=== PATIENT | male | born 1935 | race Caucasian/White ===

== ENCOUNTER 2019-11-09 09:17 | Outpatient (CLI) | payer MEDICARE, SELFPAY ==
--- NOTE | 2019-11-09 10:15 | USCV_ITS ---
Jerzy Quezada Age: 84 Gender: M : 1935 Exam Date: 11/09/2019 09:48 Ordering Phys: Mickey Xavier MD ([email or web address]) Technologist: Nandini Oneal Exam Location: [facility] [place] Indication: CP, SOB BP: 120 / 64 HR: 148 Rhythm: Sinus Technical Quality: Adequate MEASUREMENTS (Male / Female) Normal Values 2D ECHO LV Diastolic Diameter PLAX 5.6 cm 4.2 - 5.9 / 3.9 - 5.3 cm LV Systolic Diameter PLAX 5.0 cm LV Chamber Size 3.8 cm IVS Diastolic Thickness 0.6 cm 0.6 - 1.0 / 0.6 - 0.9 cm IVS Systolic Thickness 1.1 cm LVPW Diastolic Thickness 2.0 cm 0.6 - 1.0 / 0.6 - 0.9 cm LVPW Systolic Thickness 2.0 cm RV Chamber Size 3.4 cm LVOT Diameter 2.0 cm LV Ejection Fraction 2D Teich 20.7 % LV Ejection Fraction MOD 2C 40.7 % LV Ejection Fraction 2C AL 38.1 % LA Diameter 5.4 cm LA Width 3.7 cm LA Height 5.3 cm RA Width 3.0 cm RA Height 4.2 cm Aorta at Sinotubular Diameter 2.7 cm M-MODE LV Diastolic Diameter MM 6.5 cm 4.2 - 5.9 / 3.9 - 5.3 cm LV Systolic Diameter MM 4.9 cm LV Ejection Fraction MM Teich 47.1 % IVS Diastolic Thickness MM 0.4 cm 0.6 - 1.0 / 0.6 - 0.9 cm IVS Systolic Thickness MM 1.0 cm LVPW Diastolic Thickness MM 1.0 cm 0.6 - 1.0 / 0.6 - 0.9 cm LVPW Systolic Thickness MM 1.3 cm Aortic Annulus Diameter 3.0 cm LA Ao Ratio MM 1.8 MV E Point Septal Separation 1.6 cm DOPPLER AV Peak Velocity 145.0 cm/s LVOT Peak Velocity 90.0 cm/s AV Area Cont Eq vti 1.8 cm squared AV Area Cont Eq pk 2.0 cm squared MV Area PHT 4.6 cm squared Mitral E to A Ratio 2.0 MV E' Velocity 10.0 cm/s Mitral E to MV E' Ratio 12.9 Mitral E to LV E' Lateral Ratio 11.3 Mitral E to LV E' Septal Ratio 15.1 TR Peak Velocity 240.0 cm/s TR Peak Gradient 23.1 mmHg TR Mean Velocity 238.7 cm/s TR Mean Gradient 25.4 mmHg TR Velocity Time Integral 105.4 cm TV Peak E Velocity 87.0 cm/s Right Atrial Pressure 3.0 mmHg Pulmonary Artery Systolic Pressu 26.0 mmHg PV Peak Velocity 89.0 cm/s RV Acceleration Time 0.1 s RV Ejection Time 0.3 s RV AcT/ET 0.4 FINDINGS Left Ventricle Moderately increased left ventricular cavity size. Moderately decreased left ventricular systolic function. Left ventricular ejection fraction is estimated at 39 %. Grade II/IV diastolic dysfunction, moderately elevated filling pressures. Right Ventricle The right ventricle is normal in size and function. Right Atrium The right atrium is normal in size. Left Atrium Moderately increased left atrial size. Mitral Valve Moderately thickened mitral valve. No mitral valve stenosis. Severe mitral valve regurgitation. Aortic Valve Moderate aortic valve calcification. Mild aortic valve stenosis, mean gradient 4.4 mmHg, DC 1.8 cm squared.mild aortic valve regurgitation. Tricuspid Valve Trace tricuspid valve regurgitation. Pulmonic Valve Structurally normal pulmonic valve without significant stenosis. There is no pulmonic regurgitation. Pericardium Normal pericardium without effusion. Aorta Normal ascending aorta dimension. CONCLUSIONS 1-Moderately increased left ventricular cavity size. Moderately decreased left ventricular systolic function. Left ventricular ejection fraction is estimated at 39 %. Grade II/IV diastolic dysfunction, moderately elevated filling pressures. 2-Moderately increased left atrial size. 3-Moderately thickened mitral valve. No mitral valve stenosis. Severe mitral valve regurgitation. 4-Moderate aortic valve calcification. Mild aortic valve stenosis, mean gradient 4.4 mmHg, DC 1.8 cm squared.mild aortic valve regurgitation. 5-There is no pericardial effusion. 6-Right atrial pressure is around 5 mm of mercury. 7-There are no prior echocardiogram studies to compare. Mickey Xavier MD (Electronically Signed) Final Date: 10 Nov 2019 17:26 S
== END 2019-11-09 09:18 | disposition home or self-care (01) ==
LOC: RAD 09:22
PROVIDERS: Family Provider Family Medicine; PCP Nurse Practitioner Family; Visit Provider Internal Medicine Cardiovascular Disease
DX: R06.02 Shortness of breath (principal); R07.9 Chest pain, unspecified; I05.9 Rheumatic mitral valve disease, unspecified; I35.0 Nonrheumatic aortic (valve) stenosis
CPT/HCPCS: 93306

== ENCOUNTER 2020-01-04 08:28 | Outpatient (CLI) | payer MEDICARE, SELFPAY ==
[2020-01-04 09:31] VITALS: BMI 21.8
--- NOTE | 2020-01-04 09:32 | NMCV_ITS ---
NM deysi perf SPECT r/s* [id number] Jerzy Quezada Age: 84 Gender: M : 1935 Exam Date: 01/04/2020 09:57 Ordering Phys: Mickey Xavier MD ([email or web address]) Technologist: CHARLOTTE Williamson Exam Location: [facility] Indications: CHEST PAIN STRESS TEST Please [facility] for [facility] IMAGE PROTOCOL Rest/Stress 1 Lexiscan Day Radiopharmaceutical Dose (mCi) Administration Site Administered by Rest: Tc-99m 11.0 IV CHARLOTTE Kuo Sestamibi Stress:Tc-99m 32.4 IV CHARLOTTE Williamson Sestamibi Rest: 04-Jan-2020 60 Discovery 630 Stress: 04-Jan-2020 30 Discovery 630 0.4mg Lexiscan. Images obtained in supine and prone position. SPECT RESULTS Technical Quality: Excellent Raw Data Analysis: Normal Image Corrections: Patient motion artifact - motion correction applied Summed Stress Score: 26 Summed Rest Score: 22 Summed Difference Score: 5 PERFUSION FINDINGS Large area of fixed perfusion defect noted in basal to distal anterior, anteroseptal and apical wall suggestive of old myocardial infarction versus scarring in LAD territory. Medium-sized area of fixed perfusion defect noted in basal to mid inferior and infero lateral wall suggestive of old myocardial infarction versus scarring. This study is negative for ischemia. FUNCTIONAL RESULTS (calculated via Gated SPECT) Stress Image LV EF (%): 38 Stress EDV (mL):187 TID: 0.93 Stress ESV (mL):116 Rest Image LV EF (%): 38 FUNCTIONAL FINDINGS: Mid to distal anterior anteroseptal apical akinesis. Mid to distal inferior wall akinesis IMPRESSIONS Large area of fixed perfusion defect noted in basal to distal anterior, anteroseptal and apical wall suggestive of old myocardial infarction versus scarring in LAD territory. Medium-sized area of fixed perfusion defect noted in basal to mid inferior and inferolateral wall suggestive of old myocardial infarction versus scarring. This study is negative for ischemia. Mickey Xavier MD (Electronically Signed) Final Date: 04 January 2020 15:44 S
--- NOTE | 2020-01-04 09:32 | ECG_ITS ---
[facility] Test Date: 2020-01-04 Pat Name: Jerzy Quezada Department: Room: Gender: Male Optic Fib[employer] Drawer: Meryl Mariano : 1935 Requested By: Mickey Xavier Order Number: [id number] Renata MD: Mickey Xavier M.D. Interpretive Statements NAME OF STUDY: LEXISCAN SESTAMIBI STRESS TEST INDICATION: Chest Pain, NOTE: Please note that this is the electrocardiogram portion of the Lexiscan/Sestamibi stress test. The perfusion scan will be documented separately. DATA: Baseline heart rate was 62 beats per minute. Baseline blood pressure was 146/70 millimeters of mercury. Target heart rate was 130. Maximum heart rate achieved was 92. which was 66 % of the predicted target heart rate. Maximum blood pressure was 150/81 millimeters of mercury. The reason for ending the test was completion of the protocol. The patient did not experience any symptoms. ELECTROCARDIOGRAM: BASELINE: Sinus bradycardia. Normal axis. Otherwise, no ST-T changes suggestive of ischemia noted. No arrhythmia noted. EXERCISE: After Lexiscan injection, no ST-T changes suggestive of ischemic noted. No arrhythmia noted. CONCLUSION: Please note due to baseline abnormality of the EKG specificity and sensitivity of the EKG portion of LexiScan MIBI stress test will be low 1. EKG not suggestive of ischemia 2. Lexiscan injection unremarkable. 3. Perfusion scan will be documented separately. Electronically Signed On 01-05-2020 17:23:34 CDT by Mickey Xavier M.D. [id number]
[2020-01-04] MEDS: regadenoson 0.4 Mg/5 ml Syringe IVP (10:59)
[2020-01-04 11:09] VITALS: BP 149/79; PULSE 71
== END 2020-01-04 08:29 | disposition home or self-care (01) ==
PROVIDERS: PCP Nurse Practitioner Family; Visit Provider Internal Medicine Cardiovascular Disease
DX: R06.02 Shortness of breath (principal); I25.10 Atherosclerotic heart disease of native coronary artery without angina pectoris; R07.9 Chest pain, unspecified
CPT/HCPCS: 78452; 93017; A9500; J2785

== ENCOUNTER 2021-02-18 07:09 | Outpatient (CLI) | payer MEDICARE, SELFPAY ==
--- NOTE | 2021-02-18 07:16 | ECG_ITS ---
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 Interpretive Statements NAME OF STUDY: EXERCISE SESTAMIBI STRESS TEST INDICATION: [Angina, ] EXERCISE DATA: The patient was exercised by Mickey protocol. Baseline heart rate was 91 beats per minute. Baseline blood pressure was 106/92 millimeters of mercury. Target heart rate was 145 beats per minute. Maximum heart rate achieved was 171, which was 117% of the target heart rate. Maximum blood pressure was 106/65 millimeters of mercury. Total exercise time was 3 minutes. Maximum METs achieved was 4.6, maximum VO2 was 16. The reason for ending the test was target heart rate achieved. The patient complained of shortness of breath during the stress test, which then resolved at the end of the test. ELECTROCARDIOGRAM: BASELINE: Showed sinus rhythm, normal axis, no significant ST-T changes at the baseline noted and left bundle branch block. Frequent PVCs [] EXERCISE: At the peak exercise level, [] No significant ST-T changes suggestive of ischemia noted. [] RECOVERY: During the recovery period, heart rate dropped appropriately. No significant ST-T changes in the recovery suggestive of ischemia noted. [] CONCLUSION: 1. Exercise capacity poor. 2. Heart rate response was appropriate. 3. Blood pressure response was appropriate. 4. Symptoms not suggestive of ischemia. 5. Electrocardiogram portion of the stress test was not suggestive of ischemia. 6. Nuclear scan will be documented separately. Electronically Signed On 03-17-2021 13:04:34 CDT by Deven Sam M.D. [id number]
--- NOTE | 2021-02-18 07:17 | NMCV_ITS ---
NM deysi perf SPECT r/s* [id number] Jerzy Quezada Age: 85 Gender: M : 1935 Exam Date: 02/18/2021 08:32 Ordering Phys: Sharon Foley Technologist: CHARLOTTE Williamson Exam Location: [facility] Indications: MYOCARDIAL PERFUSION STRESS TEST Please see separate stress test report in [facility] for full findings IMAGE PROTOCOL Rest/Stress 1 Exercise Day Radiopharmaceutical Dose (mCi) Administration Site Administered by Rest: Tc-99m 10.7 IV CHARLOTTE Williamson Sestamibi Stress:Tc-99m 32.3 IV Harriet Arroyo THRESHING DEPARTMENT SUPERVISOR Sestamibi Rest: 18-Feb-2021 60 Discovery 630 Stress: 18-Feb-2021 15 Discovery 630 Radiopharmaceutical was injected at 101% maximum heart rate. Images obtained in supine and prone position. SPECT RESULTS Technical Quality: Excellent Raw Data Analysis: Normal Image Corrections: No attenuation or motion correction applied Summed Stress Score: 25 Summed Rest Score: 32 Summed Difference Score: 0 PERFUSION FINDINGS There is a large sized, fixed perfusion defect in the apical, anterior and inferior [place]orges. This represents prior infarct. No evidence of ischemia is noted FUNCTIONAL RESULTS (calculated via Gated SPECT) Stress Image LV EF (%): 31 Stress EDV (mL):243 TID: 0.99 Stress ESV (mL):168 FUNCTIONAL FINDINGS: LV systolic function is severely reduced with EF of 31% IMPRESSIONS 1. Abnormal myocardial perfusion imaging with large sized prior infarct noted in the apical, anterior and inferior georges. No evidence of ischemia is seen 2. LV systolic function is severely reduced Deven Sam MD (Electronically Signed) Final Date: 18 February 2021 12:12 S
[2021-02-18 07:36] VITALS: BMI 21.5
[2021-02-18 09:22] VITALS: BP 106/65; PULSE 96
== END 2021-02-18 07:10 | disposition home or self-care (01) ==
LOC: CDL 07:13
PROVIDERS: PCP Nurse Practitioner Family; Visit Provider Nurse Practitioner Family
DX: I20.9 Angina pectoris, unspecified (principal)
CPT/HCPCS: 78452; 93017; A9500

== ENCOUNTER 2021-03-20 09:22 | Outpatient (CLI) | payer MEDICARE, SELFPAY ==
--- NOTE | 2021-03-20 09:30 | US_ITS ---
WS: [id number] THYROID ULTRASOUND HISTORY: HYPOTHYROID COMPARISON: None available. Right lobe: 1.5 cm x 1.5 cm x 4.0 cm (w x ap x l). Volume: 4.6 cm3. Normal size and echotexture. No significant are dominant nodules are present. Left lobe: 1.0 cm x 1.5 cm x 4.0 cm (w x ap x l). Volume: 3.0 cm3. Normal size and echotexture. No significant or dominant nodules are present. Single 5 mm hypoechoic n odule upper pole LEFT thyroid is well defined. No additional workup necessary. Isthmus: 0.3 cm. US/US thyroid [id number] IMPRESSION: No suspicious or dominant thyroid nodules. Normal size gland.
== END 2021-03-20 09:23 | disposition home or self-care (01) ==
LOC: US 09:23
PROVIDERS: PCP Nurse Practitioner Family; Visit Provider Nurse Practitioner Family
DX: E03.9 Hypothyroidism, unspecified (principal)
CPT/HCPCS: 76536

== ENCOUNTER 2021-05-26 08:05 | Emergency (ER) | payer MEDICARE, SELFPAY ==
[2021-05-26 08:17] VITALS: BP 133/93; PULSE 102; RESP 23; TEMP 36.7; O2SAT 95; BMI 22.1
--- NOTE | 2021-05-26 08:17 | W.ED.SOB ---
HPI - SOB/Dyspnea General: Chief Complaint: Shortness of Breath/Dyspnea Stated Complaint: SOB Time Seen by Provider: 05/26/21 08:16 History of Present Illness: HPI Narrative: Mr. Quezada is a 86-year-old gentleman with significant past medical history of CAD status post PCI with combined heart failure presents emergency department due to shortness of breath and chest pressure. He reports a longstanding history of shortness of breath and decreased exercise tolerance which she noted more so over the past year and a half. Without known specific provoking factor or event his symptoms have worsened over the past day or so. He most noted this lower leg down to bed at night, he felt short of breath and got up to sleep in a chair though still felt short of breath. No associated infectious symptoms. He does have mild intensity aching pressure in the middle of his chest which is not uncommon for him. No other specific changes to health reported. No other specific exacerbating or alleviating factors identified Review of Systems General: Reports: 10 or more systems reviewed and unremarkable except in HPI and below PFSH ED PFSH: Medical History CAD (coronary artery disease) Essential hypertension History of GA (myocardial infarction) Hyperlipidemia Family History Brother Heart failure Brother Heart failure Sister Heart failure Mother Hypertension Heart failure Diabetes Daughter Diabetes Other Cancer Physical Exam Narrative: EXAM NARRATIVE: GENERAL/CONSTITUTIONAL -chronically ill-appearing. No acute distress. Eyes - PERRL, no conjunctival injection ENMT - Atraumatic external nose and ears. NECK - supple. trachea midline CARDIOVASCULAR - regular rate and rhythm. No significant peripheral edema. RESPIRATORY -diminished to auscultation bilaterally. ABDOMEN/GI - Nontender/Nondistended. MSK - Extremities without obvious deformity or tenderness to palpation SKIN - Warm, Dry NEURO - alert and appropriately oriented. Moves all extremities equally. Course ED course: - Patient was seen and evaluated by me at bedside - Patient placed on cardiac monitors, IV access obtained - Initial evaluation notable for no acute distress, nontoxic appearance. Mild tachypnea noted without significant respiratory distress - Labs notable for no leukocytosis. No significant metabolic abnormality to explain the patient's symptoms. BNP is elevated. - Imaging notable for mild cardiomegaly, pleural thickening which may represent trace effusion - Upon serial reexamination after treatment the patient was improved - Based on patient history, evaluation, labs, and imaging as interpreted the most likely cause of the patient's condition is mild heart failure exacerbation. - The results of ED evaluation were discussed with the patient including possible management options including admission versus outpatient follow-up. Patient comfortable with outpatient follow-up. Prescriptions and/or symptomatic cares (if applicable) including appropriate and responsible use, followup plan, and return precautions. The patient verbalized understanding and felt safe for discharge. - Patient discharged in satisfactory condition. Vital Signs: Vital signs: Vital Signs Temperature 98.1 F 05/26/21 09:07 Pulse Rate 82 05/26/21 09:07 Respiratory Rate 27 H 05/26/21 09:07 Blood Pressure 117/71 05/26/21 09:07 Pulse Oximetry 93 05/26/21 09:07 MDM - SOB/Dyspnea Medical Records: Attestation: I reviewed the patient's medical records. Lab Data: Attestation: I reviewed the patient's lab results. Labs: Lab Results 05/26/21 05/26/21 05/26/21 08:26 08:26 08:26 WBC 6.9 10^3/uL 10^3/ uL (4.0-10.0) RBC 4.21 10^6/uL 10^6 /uL (4.1-5.3) Hgb 13.3 g/dL g/dL (11.7-16.6) Hct 41.4 % L % (42.0-52.0) MCV 98.3 fl H fl (80-94) MCH 31.6 pg pg (28.0-34.0) MCHC 32.1 g/dL g/dL (30.0-36.0) RDW 13.6 % % (12.1-15.1) Plt Count 194 10^3/cmm 10^3 /cmm (130-400) MPV 10.4 fL fL (7.4-10.4) Neut % (Auto) 71.8 % % Lymph % (Auto) 16.2 % % [place] % (Auto) 9.3 % % Eos % (Auto) 2.0 % % Baso % (Auto) 0.7 % % Neut # (Auto) 4.91 10^3/uL 10^3 /uL (1.8-7.7) Lymph # (Auto) 1.1 10^3/uL 10^3/ uL (0.8-4.8) [place] # (Auto) 0.6 10^3/uL 10^3/ uL (0.2-0.9) Eos # (Auto) 0.1 10^3/uL 10^3/ uL (0.0-0.8) Baso # (Auto) 0.1 10^3/uL 10^3/ uL (0.0-0.1) Nucleated RBC % (a uto) 0 % % Nucleated RBCs # 0.0 /100WBC /100W BC Sodium 137 mmol/L mmol/L (136-145) Potassium 4.4 mmol/L mmol/L (3.5-5.1) Chloride 101 mmol/L mmol/L (98-107) Carbon Dioxide 23 mmol/L mmol/L (22-29) Anion Gap 17.4 (5-19) BUN 14 mg/dL mg/dL (8-23) Creatinine 0.8 mg/dL mg/dL (0.7-1.2) GFR Calculation Not Reportable Glucose 99 mg/dL mg/dL (65-115) Calculated Osmolal ity 285 mOsm/kg mOsm/ kg (285-295) Calcium 9.6 mg/dL mg/dL (8.5-10.5) Total Bilirubin 0.9 mg/dL mg/dL (0.15-1.2) AST 20 U/L U/L (0-40) ALT 16 U/L U/L (0-41) Alkaline Phosphata se 72 IU/L IU/L (40-130) Troponin T Baselin e 14 ng/L ng/L (0-15) Troponin T 120 Min [place] Troponin T NT-Pro-B Natriuret Pep 2115 pg/mL H pg/m L (0-450) Total Protein 7.1 g/dL g/dL (6.6-8.7) Albumin 4.9 g/dL g/dL (3.5-5.2) Globulin 2.2 g/dL g/dL (1.3-4.6) TSH 3.23 uIU/mL uIU/m L (0.27-4.20) 05/26/21 11:01 WBC RBC Hgb Hct MCV MCH MCHC RDW Plt Count MPV Neut % (Auto) Lymph % (Auto) [place] % (Auto) Eos % (Auto) Baso % (Auto) Neut # (Auto) Lymph # (Auto) [place] # (Auto) Eos # (Auto) Baso # (Auto) Nucleated RBC % (a uto) Nucleated RBCs # Sodium Potassium Chloride Carbon Dioxide Anion Gap BUN Creatinine GFR Calculation Glucose Calculated Osmolal ity Calcium Total Bilirubin AST ALT Alkaline Phosphata se Troponin T Baselin e Troponin T 120 Min [place] 12.86 ng/L ng/L (0-15) [place] Troponin T -1.14 ABS# L ABS# (0-10) NT-Pro-B Natriuret Pep Total Protein Albumin Globulin TSH EKG Data^: EKG 1: Attestation: I personally reviewed and interpreted this EKG as follows: EKG Interpretation Date: 05/26/21 EKG interpretation time: 08:30 Interpretation: Twelve-lead EKG shows a regular rhythm at a rate of 92. NH interval 148, QRS duration 153, QTc 437. Normal axis. Interpretation: Sinus rhythm. Left bundle branch block. EKG 2: Attestation: I personally reviewed and interpreted this EKG as follows: EKG Interpretation Date: 05/26/21 EKG interpretation time: 11:20 Interpretation: Twelve-lead EKG shows a regular rhythm at a rate of 81. NH interval 155, QRS duration 157, QTc 447. Normal axis. Interpretation: Sinus rhythm. Left bundle branch block. Discharge Plan Discharge Patient Disposition: Home Clinical Impression: Shortness of breath, Chest pain Condition: Stable Prescriptions: No Action levothyroxine 50 mcg capsule 50 mcg PO DAILY RF: 0 nitroglycerin [Nitrostat] 0.4 mg tablet, sublingual 0.4 mg sublingual Q5M PRN (Reason: chest pain) Qty: 25 RF: 3 aspirin [Adult Aspirin Regimen] 81 mg tablet,delayed release (DR/EC) 81 mg PO DAILY Qty: 90 RF: 3 Lasix 20 mg tablet 20 mg PO DAILY Qty: 90 RF: 3 isosorbide mononitrate 30 mg tablet extended release 24 hr 15 mg PO BID Qty: 90 RF: 3 metoprolol succinate 25 mg tablet extended release 24 hr 12.5 mg PO DAILY Qty: 45 RF: 3 rosuvastatin 10 mg tablet 10 mg PO DAILY Qty: 90 RF: 3 Discharge Orders: Discharge ED (Routine); Ordered 05/26/21 Ordered By: Tony Trinh Referrals: Roxy Kaye APN [Primary Care Provider] - Discharge Diet: Usual diet Discharge Activity: Resume usual activity Patient Instructions: Heart Failure (ED), Shortness of Breath (ED) Activity Restrictions/Additional Instructions: Thank you for visiting the emergency department. You were seen and evaluated for shortness of breath. The exact cause of your symptoms is unclear however may be related to volume overload. You will be started on a medication called furosemide. Given your symptoms and this new medication you require follow-up with cardiology this week. I have messaged our casework specialist who should aid in scheduling this, she will see this message Thursday morning. Please return to the emergency department for worsening symptoms, chest pain, or anything else that you are concerned about and feel needs emergency department evaluation. Coding Level of Care Code ED Leaf Sucker Operator for Isaias Nance
--- NOTE | 2021-05-26 08:43 | ECG_ITS ---
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 Measurements Intervals [place] Rate: 81 P: 59 ME: 155 QRS: 73 QRSD: 157 T: 42 QT: 410 QTc: 478 Interpretive Statements SINUS RHYTHM LEFT BUNDLE BRANCH BLOCK [120+ ms QRS DURATION, 80+ ms Q/S IN V1/V2, 85+ ms R IN I/aVL/V5/V6] No previous ECG available for comparison Electronically Signed On 05-26-2021 15:53:40 SPEEDER OPERATOR by Brien Allen M.D. [id number]
--- NOTE | 2021-05-26 08:43 | XRR_ITS ---
PROCEDURE INFORMATION: Exam: XR Chest Exam date and time: 05/26/2021 8:43 AM Age: 86 years old Clinical indication: Shortness of breath; Prior surgery; Surgery date: 6+ months; Surgery type: Stents placed in heart; Additional info: SOB, problems breathing since 1 year ago TECHNIQUE: Imaging protocol: XR of the chest. Views: 1 view. COMPARISON: No relevant prior studies available. FINDINGS: Lungs: Mildly hyperinflated lungs. No consolidation. Pleural spaces: Appearance of pleural thickening at the lung bases, potentially trace loculated fluid/effusion. No pneumothorax. Heart/Mediastinum: Mild cardiomegaly. 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 XR/XR chest 1V portable [id number] IMPRESSION: 1. Mild cardiomegaly. 2. Appearance of pleural thickening at the lung bases which may represent trace loculated fluid/effusion. Radiation Dose CTDIVOL = (mGy): DLP = (mGy-cm)
[2021-05-26 09:07] VITALS: BP 117/71; PULSE 82; RESP 27; TEMP 36.7; O2SAT 93
[2021-05-26 09:33] LABS: Basophils # 0.1 10^3/uL (0.0-0.1); Basophils % 0.7 %; Eosinophils # 0.1 10^3/uL (0.0-0.8); Hematocrit 41.4 % (42.0-52.0); Hemoglobin 13.3 g/dL (11.7-16.6); Lymphocytes # 1.1 10^3/uL (0.8-4.8); Lymphocytes % 16.2 %; Mean Corpuscular HGB Conc 32.1 g/dL (30.0-36.0); Mean Corpuscular Hemoglobin 31.6 pg (28.0-34.0); Mean Corpuscular Volume 98.3 fl (80-94); Mean Platelet Volume 10.4 fL (7.4-10.4); Monocytes # 0.6 10^3/uL (0.2-0.9); Monocytes % 9.3 %; Neutrophils # 4.91 10^3/uL (1.8-7.7); Neutrophils % 71.8 %; Nucleated Red Blood Cells % 0 %; Platelet Count 194 10^3/cmm (130-400); Red Blood Count 4.21 10^6/uL (4.1-5.3); Red Cell Distribution Width 13.6 % (12.1-15.1); White Blood Count 6.9 10^3/uL (4.0-10.0)
[2021-05-26 09:41] LABS: Troponin(5th) Baseline 14 ng/L (0-15)
[2021-05-26 09:46] LABS: Alanine Aminotransferase 16 U/L (0-41); Albumin Level 4.9 g/dL (3.5-5.2); Alkaline Phosphatase 72 IU/L (40-130); Aspartate Amino Transferase 20 U/L (0-40); Blood Urea Nitrogen 14 mg/dL (8-23); Calcium 9.6 mg/dL (8.5-10.5); Carbon Dioxide 23 mmol/L (22-29); Chloride 101 mmol/L (98-107); Globulin 2.2 g/dL (1.3-4.6); Glucose 99 mg/dL (65-115); NT Pro B Type Natriuretic Pept 2115 pg/mL (0-450); Osmolality Calculated 285 mOsm/kg (285-295); Sodium 137 mmol/L (136-145); Thyroid Stimulating Hormone 3.23 uIU/mL (0.27-4.20); Total Bilirubin 0.9 mg/dL (0.15-1.2); Total Protein 7.1 g/dL (6.6-8.7)
[2021-05-26 09:48] LABS: Anion Gap 17.4 (5-19); Potassium 4.4 mmol/L (3.5-5.1)
[2021-05-26] MEDS: potassium chloride ER 20 mEq Tablet PO (10:38)
[2021-05-26] MEDS: FUROsemide 10 mg/mL SDV 2mL 20 MG IVP (10:38)
[2021-05-26 11:31] LABS: Troponin 5 2HR 12.86 ng/L (0-15)
[2021-05-26 11:43] LABS: Troponin 5 2HR Delta -1.14 ABS# (0-10)
--- NOTE | 2021-05-27 13:40 | DCPLANNER ---
Addendum entered by Isabel Cedeno 07/27/21 11:18: Patient had a [facility] appointment [facility] with [facility] - patient did attend appointment. Original Note: process control manager had message to schedule a follow up appointment for patient with [facility]. process control manager called [facility], spoke with Whitley, gave clinic patients information. A follow up appointment was scheduled for Friday, May 28, 2021 at 1:[address] Xavier. process control manager called patient, spoke with his daughter, gave her the appointment information.
== END 2021-05-26 12:07 | disposition home or self-care (01) ==
PROVIDERS: Emergency Provider Emergency Medicine; PCP Nurse Practitioner Family
DX: R06.02 Shortness of breath (principal); R07.9 Chest pain, unspecified; Z79.82 Long term (current) use of aspirin; I25.10 Atherosclerotic heart disease of native coronary artery without angina pectoris; I10 Essential (primary) hypertension; I25.2 Old myocardial infarction; E78.5 Hyperlipidemia, unspecified
CPT/HCPCS: 71045; 80053; 83880; 84443; 84484; 85025; 93005; 96374; 99283; J1940

== ENCOUNTER 2021-07-09 07:09 | Outpatient (CLI) | payer MEDICARE, SELFPAY ==
[2021-07-09] VITALS (24 sets, daily range): BP systolic 78–135; BP diastolic 61–89; PULSE 63–98; RESP 10–23; TEMP 36.8; O2SAT 90–98; BMI 21.2
--- NOTE | 2021-07-09 07:30 | XACV_ITS ---
Exam Room: 2 Ht: 175 cm Wt: 65 kg BSA: 1.78 m2 Gender: Male : 1935 Exam Priority: Routine Procedure(s): Procedure Description: Diagnostic procedure Procedure Description: PCI procedure Procedure Description: Drug Eluting Coronary Stent Procedure Description: PTCA Procedure Description: Coronary Angiography Duc ECKERT; Diagnostic Cath Status: Elective Diagnostic Findings * Left Main has no disease. * Circumflex has no disease. * Proximal Left Anterior Descending: moderate 50% stenosis, KATHIA: 3 flow. * Proximal Left Anterior Descending: severe 85% stenosis, KATHIA: 3 flow. * Proximal Right Coronary Artery: mild 40% stenosis, KATHIA: 3 flow. * Mid Right Coronary Artery: mild 40% stenosis, KATHIA: 3 flow. * 1st Diagonal: obstructive 60% stenosis, KATHIA: 3 flow. * 2nd Diagonal: significant 80% stenosis, KATHIA: 3 flow. * Coronary angiography shows right dominance. PCI Status: Elective PCI Indication: New Onset Angina <= 2 months Interventional Findings * Proximal Left Anterior Descendin% stenosis treated with a AB TREK 2.50X12 RX BALLOON, JOSE L Maurice ROBIN 3.0X8 DOMENIC, and MDAdam PEMBERTON EUPHORA RX 3.01Y21NN BALLOON. 0% residual stenosis, KATHIA: 3 flow. Conclusions 1. There is severe coronary artery disease with two vessel disease. 2. Proximal Left Anterior Descending was treated with a Balloon, Drug Eluting Stent, and Balloon. 3. Indication: 4. Worsening of symptoms 5. with shortness of breath 6. LV dysfunction 7. despite optimization of medicine. Recommendations * Continue current medical management and risk factor modification. * 1-Return to inpatient for close monitoring and routine cath care 2-Risk factor modification for secondary prevention 3-Statin and aspirin 81 mg life--long, if tolerated 4-Continue Plavix 75mg p.o. daily for at least one year. We will assess at the end of one year again to continue if further or not 5-Continue optimal medical management 6-Follow up with Dr. Xavier in four weeks and your primary care in 10 days. Diagnostic RX Recommendation: PCI w/o planned CABG Pressures Phase:Rest AO : 102 / 74 ( 88 ) @ 7:14:00 AM 99 / 72 ( 86 ) @ 7:16:00 AM 100 / 71 ( 86 ) @ 7:19:00 AM 99 / 66 ( 82 ) @ 7:20:00 AM 95 / 68 ( 80 ) @ 7:21:00 AM 116 / 64 ( 86 ) @ 7:26:00 AM 102 / 54 ( 81 ) @ 7:31:00 AM 108 / 71 ( 88 ) @ 7:33:00 AM 99 / 69 ( 84 ) @ 7:35:00 AM 105 / 63 ( 84 ) @ 7:39:00 AM 103 / 71 ( 84 ) @ 7:49:00 AM 101 / 72 ( 86 ) @ 7:53:00 AM Clinical Evaluation EBL: 5mL-10mL Procedural Details Procedure Consent Obtained. Current Diagnosis : Chest Pain. Pre-Procedure Time Out. Identified patient by full name and date of as verbalized by the patient/guarantor. Does the consent match the physician's order: Yes. Accurate & Complete Informed Consent: Yes. Inpatient/Outpatient History & Physical on Chart: Yes. If H&P is completed, is and addenduem needed: No; If yes, is the addendum complete: N/A. Visualize and Verify Site with Patient/Guarantor: N/A. Relevant Radiology Images available: Yes. Pre-op teaching completed and patient verbalized understanding. The risks, benefits, and alternatives of sedation and/or procedure were discussed by physician. The patient agrees to continue. Procedure started. [facility] Clinical Fraility Score: 3: Managing Well. 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 Chest Pain Symptom Assessment: Typical Angina Symptoms. Correct patient, site and procedure confirmed by cath team. Current diagnosis: Chest Pain. PERRLA. Strong, equal hand paper coater bilaterally. Lungs clear x 5 lobes. IV Site on Arrival: 20 gauge in the left anticubital. IV Fluids: 0.9% NaCl at KVO. 0 mL infused prior to home performance laborer. Pre Procedural Pulses: bilateral dorsalis pedis was Doppled. Pre Procedural Pulses: bilateral posterior tibial was Doppled. Pre Procedural Pulses: bilateral radial was 2+. Oxygen started at 2liters/min via nasal canula. right groin was prepped with chloroprep then draped in the usual sterile fashion. right radial was prepped with chloroprep then draped in the usual sterile fashion. Physician notified. Baseline sample Acquired. HR: [address] Brown scrubbing in to assist Dr. Xavier. Physician scrubbed in. Immediate Pre-Procedure Time Out. Correct Patient: Yes; Correct Procedure: Yes; Correct Site: Yes; Correct Patient Position: Yes; Correct Supplies: Yes; Dried Flammable Prep: Yes; Blood Products Available: N/A;. Lidocaine 1% infiltrated to the right radial. Arterial access obtained. A 5 azerbaijani TIG catheter in over wire. Dr. Xavier scrubbed in. Multiple views taken of left coronary artery. Catheter redirected to the RCA. Multiple views taken of right coronary artery. Physician review of cine films. Catheter removed over the exchange wire. 6 azerbaijani XB 3 SH guide catheter was inserted over the wire. Forest guidewire was advanced through the guide catheter to lesion in the prox LAD. Wire out. [place] guidewire was advanced through the guide catheter to lesion in the prox LAD. Balloon inserted to lesion in the mid LAD. Inflation number : 1 A AB TREK 2.50X12 RX BALLOON was prepped and advanced across the Prox LAD , then inflated to 0 DOMENICA for 0:00 seconds. Inflation number: 2 The AB TREK 2.50X12 RX BALLOON was reinflated across the Prox LAD, to 18 DOMENICA for 0:11 seconds. Inflation number: 3 The AB TREK 2.50X12 RX BALLOON was reinflated across the ostial LAD, to 8 DOMENICA for 0:19 seconds. Balloon out. Inflation Number : 4 A JOSE L Maurice ROBIN 3.0X8 DOMENIC -Lot Number# _[id number] EXP: 03/29/2022 was prepped and advanced across the Prox LAD. The stent was deployed at 12 DOMENICA for 0:20 seconds. Stent balloon out over wire. Balloon inserted to lesion in the prox LAD. Inflation number : 5 A MDT NC EUPHORA RX 3.76Z35UK BALLOON was prepped and advanced across the Prox LAD , then inflated to 12 DOMENICA for 0:17 seconds. Inflation number: 6 The MDT NC EUPHORA RX 3.80Y71LK BALLOON was reinflated across the Prox LAD, to 12 DOMENICA for 0:10 seconds. Balloon out. Balloon inserted to lesion in the prox LAD. Inflation number: 7 The MDT NC EUPHORA RX 3.05L01DS BALLOON was reinflated across the Prox LAD, to 12 DOMENICA for 0:14 seconds. Inflation number: 8 The MDT NC EUPHORA RX 3.92T14PZ BALLOON was reinflated across the Prox LAD, to 12 DOMENICA for 0:11 seconds. Inflation number: 9 The MDT NC EUPHORA RX 3.13V06NS BALLOON was reinflated across the Prox LAD, to 12 DOMENICA for 0:12 seconds. Balloon out. Results checked. Wire out. Guide catheter out. ACT drawn. Results 203 seconds. Therapeutic limits - pre-heparin administration 90-150 seconds and monitoring heparin during a vascular procedure >250 seconds. A TR Band was successful obtaining hemostatsis at the Right Radial artery insertion site. Post Procedure: Pulses reassessed and unchanged. No VTE prophylaxis required. Medication's Wasted: Lidocaine 1% = 18 mL. Medication's Wasted: Nitro = 49.8 mg. Medication's Wasted: Heparin = 2000 units. Vital chart was stopped. Total IV fluids: 75 mL. Contrast type used: Visipaque 320 mgI/mL, 500 mL bottle. Post-op diagnosis: CAD. Complications: None. Estimated blood loss: 5mL-10mL. Responsiveness - Normal response to verbal stimuli; alert and oriented, PERRLA. Airway - Unaffected, no intervention required; spontaneous ventilation. Circulation: W/N/L, pulses unchanged. Nausea/Vomiting: No. Procedure completed. Patient transferred by stretcher to CPRU. Access Site Site: Right Radial artery Sheath Size: 6 Fr Hemostasis Method: TR Band Hemostasis Success: Successful Procedure Medications Start: 9:00 AM Stop: 9:00 AM Medication: Versed Amount: 1 mg Route: I.V. Start: 9:00 AM Stop: 9:00 AM Medication: Fentanyl Amount: 50 mcg Route: I.V. Start: 9:11 AM Stop: 9:11 AM Medication: Nitrogylcerin Amount: 200 mcg Route: I.A. Start: 9:14 AM Stop: 9:14 AM Medication: Heparin Amount: 5000 units Route: I.V. Start: 9:18 AM Stop: 9:18 AM Medication: Fentanyl Amount: 50 mcg Route: I.V. Start: 9:24 AM Stop: 9:24 AM Medication: Heparin Amount: 2000 units Route: I.V. Start: 9:27 AM Stop: 9:27 AM Medication: Aggrastat 12.5 mg/250 mL Amount: 11.9 ml Route: I.V. bolus Start: 9:27 AM Stop: 9:27 AM Medication: Aggrastat 12.5 mg/250 mL Amount: 33 ml/hr Route: I.V. drip Start: 9:34 AM Stop: 9:34 AM Medication: Versed Amount: 1 mg Route: I.V. Start: 9:59 AM Stop: 9:59 AM Medication: Heparin Amount: 2000 units Route: I.V. I, the attending physician, have reviewed and verified all procedure medications. Yes, all medications given per verbal order History/Risk Factors Hypertension: Yes Dyslipidemia: No Peripheral Arterial Disease (PAD): No Myocardial Infarction ([place]): No Obesity: No Renal Disease: No Prior Interventions PCI: No CABG: No Valve Surgery: No Report Signatures Finalized by Mickey Xavier MD on 07/22/2021 07:17 PM
[2021-07-09] MEDS: diphenhydrAMINE 50 mg Capsule PO (08:27)
--- NOTE | 2021-07-09 09:01 | P.HP_ITS ---
Providers/Chief Complaint Primary Care Provider: Roxy Kaye APN Chief Complaint: 32941 i25.10 History of Present Illness Jerzy Quezada is a 86 year old male past medical history significant for history of myocardial infarction coronary artery disease multiple stents for worsening of chest pain shortness of breath and LV dysfunction despite of optimization of medicine is scheduled to undergo a left heart cath for worsening of symptoms and LV function. Patient has been explained all risk benefit and alternative for the procedure he understand risk for contrast-induced nephropathy major minor bleed stroke bleeding hematoma vascular injury urgent emergent bypass surgery. He would like to proceed with it. Medications/Allergies Home Medications Medication Instructions Recorded Confirmed Last Taken Type aspirin 81 mg tablet,delayed 81 mg PO DAILY #90 tab 05/28/21 07/09/21 07/08/21 20:00 Rx release furosemide 20 mg tablet 20 mg PO DAILY #90 tab 05/28/21 07/09/21 07/08/21 20:00 Rx isosorbide mononitrate 30 mg 15 mg PO BID #90 tab 05/28/21 07/09/21 07/08/21 20:00 Rx tablet,extended release 24 hr levothyroxine 50 mcg capsule 50 mcg PO DAILY 05/28/21 07/09/21 07/08/21 20:00 History metoprolol succinate 25 mg 12.5 mg PO DAILY #45 tab 05/28/21 07/09/21 07/08/21 20:00 Rx tablet,extended release 24 hr nitroglycerin 0.4 mg sublingual 0.4 mg SUBLINGUAL Q5M PRN #25 tab 05/28/21 07/09/21 Unknown Rx tablet rosuvastatin 10 mg tablet 10 mg PO DAILY #90 tab 05/28/21 07/09/21 07/08/21 20:00 Rx Allergies Allergy/AdvReac Type Severity Reaction Status Date / Time No Known Allergies Allergy Verified 05/26/21 08:17 PFSH Acute PFSH: Medical History (Updated 06/03/21 @ 00:01 by ) CAD (coronary artery disease) Essential hypertension History of PR (myocardial infarction) Hyperlipidemia Family History Brother Heart failure Brother Heart failure Sister Heart failure Mother Hypertension Heart failure Diabetes Daughter Diabetes Other Cancer Vitals/I&O/Wt Last Vital Signs Temp 98.3 F 07/09/21 08:13 Pulse 98 07/09/21 08:13 Resp 16 07/09/21 08:13 BP 135/89 07/09/21 08:13 Pulse Ox 97 07/09/21 08:13 Weight last 48 hrs Weight 144 lb Physical Exam Narrative: EXAM NARRATIVE: GENERAL: Patient is alert, awake and oriented x3. NECK: No jugular vein distension. HEENT: No cyanosis. No icterus. No pallor. HEART: Regular S1 and S2. No murmur, rub or gallop. LUNGS: Clear to auscultate bilaterally. ABDOMEN: Soft, nontender and nondistended. Positive bowel sounds. No guarding, rebound or tenderness. CENTRAL NERVOUS SYSTEM: Grossly nonfocal. EXTREMITIES: Lower extremities without edema bilaterally. A&P Assessment and plan (1) CAD (coronary artery disease): Worsening of LV function with chest pressure and shortness of breath despite of optimization of medicine may require further exploration with left heart cath. Status: Acute Qualifiers: Coronary Disease-Associated Artery/Lesion type: [place] artery [place] vs. transplanted heart: [place] heart Associated angina: without angina Qualified Code(s): I25.10 - Atherosclerotic heart disease of [place] coronary artery without angina pectoris (2) Essential hypertension: Well-controlled. 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 transplanted heart: [place] heart Associated angina: without angina Essential hypertension I10
--- NOTE | 2021-07-09 09:12 | W.PM.OPSUD ---
Surgery/Procedure H&P Update DATE OF PROCEDURE: July 09, 2021 DATE H&P PERFORMED: 07/09/21 H&P UPDATE INFORMATION: I have reviewed H&P completed within last 30 days, I have examined patient prior to procedure and No changes to prior documentation PLANNED PROCEDURE: Operation Date: 07/09/21 08:30 Proposed Procedures p Cardiac Catheterization(Left) - Mickey Xavier MD PATIENT REASSESSED PRIOR TO SEDATION, WITH NO CHANGE NOTED: Yes PHYSICAL EXAM: alert, oriented x 3 and clear to auscultation bilaterally AIRWAY EVAL/ANESTHESIA PLAN: ASA II and Risks, benefits & alternatives of sedation and/or procedure discussed
[2021-07-09] MEDS: aspirin 81 mg EC Tablet PO (10:32)
[2021-07-09] MEDS: clopidogrel 300 mg Tablet 600 MG PO (10:32)
--- NOTE | 2021-07-09 10:43 | PC.NURSE ---
recovery received pt from medical laboratory technician [facility] via wheelchair. pt able to ambulate to bed with little assistance. pt drowsy but able to respond and follow command. tr band on right wrist with palpable distal pulse. no hematoma or bruising pt educated on restrictions of right wrist but will be educated throughout recovery. family at bedside also acknowledged understanding of restrictions. pt complains of no pain. pt placed on monitor and will be monitored per protocol.
[2021-07-09] MEDS: atorvastatin 40 mg Tablet PO (11:25)
--- NOTE | 2021-07-09 12:02 | ECG_ITS ---
[facility] Test Date: 2021-07-09 Pat Name: Jerzy Quezada Department: Room: Gender: Male Medical Assistant Prn: : 1935 Requested By: Mickey Xavier Order Number: [id number] Renata MD: Kiara Brown M.D. 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 [id number]
[2021-07-09] MEDS: pantoprazole 40 mg SDV IVP (12:39)
--- NOTE | 2021-07-09 12:48 | XACV_ITS ---
Exam Room: 2 Ht: 175 cm Wt: 65 kg BSA: 1.78 m2 Gender: Male : 1935 Exam Priority: Routine Procedure(s): Procedure Description: Diagnostic procedure Procedure Description: PCI procedure Procedure Description: Coronary IVUS Procedure Description: Drug Eluting Coronary Stent Procedure Description: PTCA Procedure Description: Miscellaneous Procedure Description: ACT Procedure Description: Coronary Angiography Duc ECKERT; Diagnostic Cath Status: Urgent PCI Status: Urgent Conclusions 1. This patient underwent coronary angiogram this morning he was noted to have significant proximal LAD stenosis mid LAD stenosis was not thought to be significant proximal LAD was treated with drug-eluting stent. RCA and circumflex did not have significant disease diagonal has moderate to severe disease but it is a small caliber vessel not amendable to treatment. During recovery patient became hypotensive short of breath dizzy and complaining of chest pain. EKG did not show significant changes. Initially was thought to be vagal but since he does not recover and Having Chest Pain I 2. b 3. rought 4. h 5. im Back to Look for the Stent 6. , which was patent. IVUS was performed to assess mid LAD stenosis with somewhat difficulty final were able to cross the lesion. It was highly calcified lesion with significant minimal luminal area of less than 2.7, it was then treated with drug-eluting stent. Severe spasm of the LAD was noted, it was relieved with intracoronary nitroglycerin. Good angiographic result was achieved. KATHIA-3 flow was confirmed. 7. . 8. Bedside echo was performed 9. to rule out 10. etiology for 11. persistent hypotension. Patient was noted to have 12. moderate 13. pericardial effusion 14. since we do not have prior echo 15. nothing to compare 16. . 17. Since 18. we do not have any perforation and because of the fact it has been not increasing and off no hemodynamic significance we decided to watch it and thought it is secondary to CHF. Recommendations * 1-Return to inpatient for close monitoring and routine cath care 2-Risk factor modification for secondary prevention 3-Statin and aspirin 81 mg life--long, if tolerated 4-Continue Plavix 75mg p.o. daily for at least one year. We will assess at the end of one year again to continue if further or not 5-Continue optimal medical management 6-Follow up with Dr. Xavier in four weeks and your primary care in 10 days. Diagnostic RX Recommendation: PCI w/o planned CABG Pressures Phase:Rest AO : 89 / 62 ( 73 ) @ 11:19:00 AM 90 / 62 ( 74 ) @ 11:26:00 AM 84 / 57 ( 69 ) @ 11:31:00 AM 97 / 63 ( 77 ) @ 11:35:00 AM Clinical Evaluation EBL: 5mL-10mL Procedural Details Procedure Consent Obtained. Admit Source: In Patient. Pre-Procedure Time Out. Identified patient by full name and date of as verbalized by the patient/guarantor. Does the consent match the physician's order: Yes. Accurate & Complete Informed Consent: Yes. Inpatient/Outpatient History & Physical on Chart: Yes. Visualize and Verify Site with Patient/Guarantor: N/A. Relevant Radiology Images available: N/A. Pre-op teaching completed and patient verbalized understanding. The risks, benefits, and alternatives of sedation and/or procedure were discussed by physician. The patient agrees to continue. Procedure started. [facility] Clinical Fraility Score: 4: Vulnerable. 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 Chest Pain Symptom Assessment: Atypical Angina. Correct patient, site and procedure confirmed by cath team. Current diagnosis: Chest Pain. PERRLA. Strong, equal hand inter fold roll cutter bilaterally. Lungs clear x 5 lobes. IV Site on Arrival: 20 gauge in the left anticubital. IV Fluids: 0.9% NaCl at KVO. 300 mL infused prior to laboratory aide. Pre Procedural Pulses: bilateral dorsalis pedis was 2+. Oxygen started at 2liters/min via nasal canula. right groin was prepped with chloroprep then draped in the usual sterile fashion. Baseline sample Acquired. HR: 0 BPM. Physician notified. Baseline sample Acquired. HR: 0 BPM. Physician arrived. Physician scrubbed in. Immediate Pre-Procedure Time Out. Correct Patient: Yes; Correct Procedure: Yes; Correct Site: Yes; Correct Patient Position: Yes; Correct Supplies: Yes; Dried Flammable Prep: Yes; Blood Products Available: N/A;. AP pads applied to pt chest. Lidocaine 1% infiltrated to the right groin. Arterial access obtained with micropuncture set. A 5 scottish JL4 catheter in over wire. Oxy mask applied and on at 10 L, n/c removed. Multiple views taken of left coronary artery. Catheter out. A 20 gauge IV was started in the right bicep using aseptic technique. A 5 scottish JR4 catheter in over wire. Aggrastat continues to infuse at 11.9 ml/hr. Multiple views taken of right coronary artery. Catheter out. Levophed gtt increased to 7mcg/min by Milind Neal RN. ACT drawn. Results 140 seconds. Therapeutic limits - pre-heparin administration 90-150 seconds and monitoring heparin during a vascular procedure >250 seconds. 6 scottish JL 3.5 guide catheter was inserted over the wire. Runthrough guidewire was advanced through the guide catheter to lesion in the mid LAD. IVUS catheter inserted and positioned to mid LAD. IVUS performed. IVUS catheter removed. US in room to perform bedside echcardiogram. Balloon inserted to lesion in the mid LAD. Inflation number : 1 A MDT NC EUPHORA RX 2.88O22IH BALLOON was prepped and advanced across the Mid LAD , then inflated to 18 DOMENICA for 0:17 seconds. Inflation number: 2 The MDT NC EUPHORA RX 2.33N82GD BALLOON was reinflated across the Mid LAD, to 18 DOMENICA for 0:08 seconds. Results checked. Balloon out. Stent inserted to lesion in the mid LAD. Inflation Number : 3 A MDT R ROBIN 3.0X8 DOMENIC -Lot Number# [id number] Exp 10/11/2022 was prepped and advanced across the Mid LAD. The stent was deployed at 14 DOMENICA for 0:14 seconds. Inflation number: 4 The stent balloon was then re-inflated across the Mid LAD to 18 DOMENICA for 0:06 seconds. Inflation number: 5 The stent balloon was then re-inflated across the Mid LAD to 18 DOMENICA for 0:11 seconds. Results checked. Guide catheter out. Patient's family updated. A Right femoral angiogram was performed to determine safe placement of closure device. A Perclose ([employer]) was successful obtaining hemostatsis at the Right Femoral artery insertion site. Post Procedure: Pulses reassessed and unchanged. PERRLA. Strong, equal hand inter fold roll cutter bilaterally. No VTE prophylaxis required. Medication's Wasted: Lidocaine 1% = 10 mL. Medication's Wasted: Heparin = 5000 u. Total IV fluids: 75 mL. Complications: none. Estimated blood loss: 5mL-10mL. Responsiveness - Normal response to verbal stimuli; alert and oriented, PERRLA. Airway - Unaffected, no intervention required; spontaneous ventilation. Circulation: W/N/L, pulses unchanged. Nausea/Vomiting: Yes. PCI Indication: New Onset Angina. Perclose failed. 7 Fr femoral sheath inserted, sutured and connected to pressure bag. Post-op diagnosis: Mid LAD significant lesion, PCI. Procedure completed. Patient transferred by bed to CPRU. Vital chart was stopped. Access Site Site: Right Femoral artery Sheath Size: 6 Fr Hemostasis Method: Perclose (FairSoftware) Hemostasis Success: Successful Procedure Medications Start: 1:06 PM Stop: 1:06 PM Medication: Levophed (norepinephrine) Amount: 5 mcg/min Route: I.V. drip Start: 1:43 PM Stop: 1:43 PM Medication: Heparin Amount: 3000 units Route: I.V. I, the attending physician, have reviewed and verified all procedure medications. Yes, all medications given per verbal order History/Risk Factors Hypertension: Yes Dyslipidemia: No Peripheral Arterial Disease (PAD): No Myocardial Infarction ([place]): No Obesity: No Renal Disease: No Prior Interventions PCI: No CABG: No Valve Surgery: No Report Signatures Finalized by Mickey Xavier MD on 07/22/2021 07:46 PM
--- NOTE | 2021-07-09 13:02 | PC.NURSE ---
pt complaining of chest discomfort an needed the restroom. he stated he thought if he could get up to go it might help. spoke to dr and received verbal orders for protonix and nitro paste. ekg ordered and obtained. pt became hypotensive after bathroom use nitro paste not administered. came to bedside to evaluate pt. 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
--- NOTE | 2021-07-09 13:18 | USCV_ITS ---
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 Severely decreased left ventricular systolic function. Left ventricular ejection fraction is estimated at 20 %. There appeared to be septal bounce, anterior and septal wall mid to distal apical akinesis. There is mid to distal lateral wall akinesis. 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 Right Ventricle Right Atrium Left Atrium Mitral Valve Aortic Valve Tricuspid Valve Pulmonic Valve Pericardium Moderate pericardial effusion mostly loculated in front of atrium and right ventricle without hemodynamic significance. There is no diastolic collapse off right ventricle noted. Aorta CONCLUSIONS Please note that this is a limited echo performed in the Nurse Quality post PCI for hypotension, no recent prior echo to compare. 1-Mildly increased left ventricular cavity size. Severely decreased left ventricular systolic function. Left ventricular ejection fraction is estimated at 20 %. There appeared to be septal bounce, anterior and septal wall mid to distal apical akinesis. There is mid to distal lateral wall akinesis. 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 2-Moderate pericardial effusion mostly loculated in front of atrium and right ventricle without hemodynamic significance. There is no diastolic collapse off right ventricle noted. 3-When compared to the prior echocardiogram pericardial effusion is new and this limited echo. Mickey Xavier MD (Electronically Signed) Final Date: 09 July 2021 18:50 S
--- NOTE | 2021-07-09 14:16 | PC.NURSE ---
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
[2021-07-09] MEDS: morphine 4 mg/mL SDV 1 mL 2 MG IVP (14:37)
[2021-07-09] MEDS: lidocaine 2% viscous 15 ML, aluminum-mag hydrox-simethicon 30 ML, sucralfate oral liq 1 GM PO (16:12)
--- NOTE | 2021-07-09 16:30 | USCV_ITS ---
Jerzy Quezada Age: 86 Gender: M : 1935 Exam Date: 07/09/2021 15:12 Ordering Phys: Mickey Xavier MD ([email or web address]) Technologist: TOM Exam Location: [facility] – [place] Indication: RECHECK PF PERICARDIAL EFFUSION BP: / HR: Rhythm: Sinus Technical Quality: Adequate MEASUREMENTS (Male / Female) Normal Values FINDINGS Left Ventricle Mildly increased left ventricular cavity size. Severely decreased left ventricular systolic function. Left ventricular ejection fraction is estimated at 20 %. There appeared to be septal bounce mid to distal septal apical and mid to distal lateral wall akinesis. Right Ventricle Right Atrium Left Atrium Mitral Valve Aortic Valve Tricuspid Valve Pulmonic Valve Pericardium There appeared to be moderate pericardial effusion of no hemodynamic significance which is loculated in front of right atrium and right ventricle. Aorta CONCLUSIONS Limited echo to monitor pericardial effusion post PCI 1-Mildly increased left ventricular cavity size. Severely decreased left ventricular systolic function. Left ventricular ejection fraction is estimated at 20 %. There appeared to be septal bounce mid to distal septal apical and mid to distal lateral wall akinesis. 2-There appeared to be moderate pericardial effusion of no hemodynamic significance which is loculated in front of right atrium and right ventricle. 3-No significant change since the prior echocardiogram study of 07/09/2021 Mickey Xavier MD (Electronically Signed) Final Date: 09 July 2021 19:22 S
[2021-07-09 16:44] LABS: INR 1.29 (0.8-1.2)
[2021-07-09 16:51] LABS: Partial Thromboplastin Time 80.2 SECONDS (23.9-36.7)
[2021-07-09] MEDS: sodium chloride 0.9% 1,000 ML 100 ML IV ×2 (17:23→20:01)
--- NOTE | 2021-07-09 18:44 | PC.NURSE ---
1810 : Patient and report received from Faith ADAN. Uneventful transfer. Patient resting comfortably with daughter at bedside.
[2021-07-09 19:37] LABS: Partial Thromboplastin Time 34.5 SECONDS (23.9-36.7)
[2021-07-09] MEDS: alum-mag-hydroxide-sime 30 mL UDC PO (19:55)
[2021-07-09] MEDS: ketorolac 30 mg/mL INJ 15 MG IVP (23:52)
[2021-07-10] VITALS (26 sets, daily range): BP systolic 105–136; BP diastolic 70–91; PULSE 79–102; RESP 0–90; TEMP 36.6–37.1; O2SAT 83–99
[2021-07-10 04:47] LABS: Hematocrit 36.6 % (42.0-52.0); Lymphocytes # 0.6 10^3/uL (0.8-4.8); Lymphocytes % 10.2 %; Mean Corpuscular HGB Conc 32.8 g/dL (30.0-36.0); Mean Corpuscular Hemoglobin 32.1 pg (28.0-34.0); Mean Corpuscular Volume 97.9 fl (80-94); Mean Platelet Volume 10.4 fL (7.4-10.4); Monocytes # 0.7 10^3/uL (0.2-0.9); Monocytes % 12.2 %; Neutrophils # 4.71 10^3/uL (1.8-7.7); Neutrophils % 77.3 %; Nucleated Red Blood Cells % 0 %; Platelet Count 161 10^3/cmm (130-400); Red Blood Count 3.74 10^6/uL (4.1-5.3); Red Cell Distribution Width 13.6 % (12.1-15.1); White Blood Count 6.1 10^3/uL (4.0-10.0)
[2021-07-10 05:02] LABS: Anion Gap 18.6 (5-19); Blood Urea Nitrogen 25 mg/dL (8-23); Calcium 8.2 mg/dL (8.5-10.5); Carbon Dioxide 17 mmol/L (22-29); Chloride 102 mmol/L (98-107); Glucose 197 mg/dL (65-115); Osmolality Calculated 286 mOsm/kg (285-295); Potassium 4.6 mmol/L (3.5-5.1); Sodium 133 mmol/L (136-145)
[2021-07-10] MEDS: alum-mag-hydroxide-sime 30 mL UDC PO ×3 (05:07→13:13)
[2021-07-10] MEDS: sodium chloride 0.9% 1,000 ML 100 ML IV (05:07)
--- NOTE | 2021-07-10 07:14 | ECG_ITS ---
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 Measurements Intervals [place] Rate: 87 P: 89 NE: 140 QRS: 23 QRSD: 152 T: -85 QT: 398 QTc: 481 Interpretive Statements SINUS RHYTHM LEFT BUNDLE BRANCH BLOCK [120+ ms QRS DURATION, 80+ ms Q/S IN V1/V2, 85+ ms R IN I/aVL/V5/V6] Compared to ECG 07/09/2021 12:37:29 No significant changes Electronically Signed On 07-11-2021 20:36:34 COMMAND AND CONTROL by Kiara Brown M.D. [id number]
[2021-07-10] MEDS: ketorolac 30 mg/mL INJ 15 MG IVP (07:22)
[2021-07-10] MEDS: lidocaine 2% viscous 15 ML, aluminum-mag hydrox-simethicon 30 ML, sucralfate oral liq 1 GM PO (07:50)
[2021-07-10] MEDS: FUROsemide 20 mg Tablet PO (08:03)
[2021-07-10] MEDS: metoprolol succinate ER (24 HR) 25 mg Tablet 12.5 MG PO (08:03)
[2021-07-10] MEDS: levothyroxine 50 mcg Tablet PO (08:03)
[2021-07-10] MEDS: pantoprazole DR 40 mg Tablet PO (08:03)
[2021-07-10] MEDS: atorvastatin 40 mg Tablet PO (08:03)
--- NOTE | 2021-07-10 09:10 | PC.CHAP ---
Pastoral Care Encounter/Spiritual Assessment Type of Contact [] Declined mash grinder visit [] Patient/Family/Request visit [] Outpatient visit [] Follow-up visit [] Physician referral [] Code/Alert [x] Routine visit [] Staff referral [] Actively dying [] Patient sleeping [] Family support [] [] Out of room [] Palliative care [] [] Receiving care in room [] Pre-surgical visit [] Trauma [] Long length of stay [x] ICU visit [] Other: Relational/Emotional Strength [] Patient feels connected with others/family/visitors/staff [] Distress [] Loneliness/isolation [] Abandonment Spirituality of Patient [x] Person of [place] [] Attends Restoration of their [place] [x] Believes in Prayer [] Reads Bible or Jew materials [] There are Spiritual issues to be addressed Delinquency Prevention Social Worker Interventions [x] Prayer [x] Active listening [x] Non-anxious presence [x] Spiritual/emotional support [] Crisis/trauma care [] Spiritual counseling [] Bereavement support [] Provided bereavement packet [] Provided Bible/devotional materials [] Provided toy/stuffed animal, coloring book to patient or family member [] Provided Communion [] Anointing/[place] [] Salvation [x] Completed spiritual assessment [] Other: Impact on Illness or Injury [] Angry [] Fearful [] Anxious [] Often cries [] Exhaustion [] Unable to work [] Unable to attend caodaism [] Unable to walk/stand [] Unable to read [] Unable to drive [] Unable to eat/drink [] Unable to sleep [] Unable to be with family [] Patient intubated [] Other: Summary patient setting up in bed.. having breakfast.. still having heavy chest pains..... Time spent with patient 10 min
[2021-07-10] MEDS: ondansetron 2 mg/ML SDV 2 mL 4 MG IVP (11:18)
[2021-07-10] MEDS: clopidogrel 75 mg Tablet PO (11:18)
[2021-07-10] MEDS: aspirin 81 mg EC Tablet PO (11:21)
--- NOTE | 2021-07-10 17:43 | PM.PN ---
Subjective Subjective: Interval history: Patient had epigastric and lower abdominal discomfort last night. He is not sure where actual pain is. He remained stable blood pressure amaya. He is off . Labs looks fine. He has anxiety and remain anxious. Twelve-lead EKG did not show any significant change from the prior Medications: Reviewed: Yes Vitals/I&O/Wt Last Vital Signs Temp 98.8 F 07/10/21 16:00 Pulse 89 07/10/21 17:00 Resp 0 L 07/10/21 17:00 BP 105/70 07/10/21 17:00 Pulse Ox 92 07/10/21 17:00 07/10/21 07/10/21 07/10/21 06:59 14:59 22:59 Intake Total 910 / 1479.533 702 / 702 Output Total 250 / 450 240 / 240 200 / 440 Balance 660 / 1029.533 462 / 462 -200 / 262 Weight last 48 hrs Weight 144 lb Weight 144 lb Physical Exam Narrative: EXAM NARRATIVE: GENERAL: Patient is alert, awake and oriented x3. NECK: No jugular vein distension. HEENT: No cyanosis. No icterus. No pallor. HEART: Regular S1 and S2. No murmur, rub or gallop. LUNGS: Clear to auscultate bilaterally. ABDOMEN: Soft, nontender and nondistended. Positive bowel sounds. No guarding, rebound or tenderness. CENTRAL NERVOUS SYSTEM: Grossly nonfocal. EXTREMITIES: Lower extremities without edema bilaterally. Const: COMMON NORMALS: alert Resp: COMMON NORMALS: clear to auscultation bilaterally AUSCULTATION: clear to auscultation bilaterally Neuro: SENSORIUM/ORIENTATION: Yes alert Data : 07/10/21 04:13 07/10/21 04:13 A&P Assessment and plan (1) CAD (coronary artery disease): S/p ostial LAD and mid LAD stent. Patient was taken back to the Inventory Clerk with concern of epigastric pain hypotension. He was also noted to have moderate pericardial effusion which appeared to be chronic and not related to PCI as there was no perforation noted at the same time patient has severely depressed ejection fraction and could be due to congestive heart failure. Patient was watched overnight he remained stable most likely hypotension was due to vagal. Continue current regimen. Status: Acute Qualifiers: Coronary Disease-Associated Artery/Lesion type: [place] artery [place] vs. transplanted heart: [place] heart Associated angina: without angina Qualified Code(s): I25.10 - Atherosclerotic heart disease of [place] coronary artery without angina pectoris (2) Essential hypertension: Normalized now. She patient is off pressors Status: Acute (3) Pericardial effusion: Moderate localized pericardial effusion in front of RA and RV no hemodynamic significant noted. Most likely this is due to CHF. We will repeat echo before discharge Status: Acute (4) Epigastric discomfort: Most likely due to gastritis patient was started on Protonix and given GI cocktail. Continue to monitor Status: Acute Attestations Medical Necessity Statement*: Patient require continuation hospitalization since he is stable we will move him out of the unit. Coding Level of Care Code Acute Sales And Marketing Agent for Isaias Nance Diagnoses CAD (coronary artery disease) I25.10 Coronary Disease-Associated Artery/Lesion type: [place] artery [place] vs. transplanted heart: [place] heart Associated angina: without angina Essential hypertension I10 Pericardial effusion I31.3 Epigastric discomfort R10.13
--- NOTE | 2021-07-10 18:10 | PC.NURSE ---
Patient uneventfully transferred to U 1808. Report given to Rosa ADAN. Patient resting comfortably in bed with PLATE COLORER in room at time of transfer.
--- NOTE | 2021-07-10 20:13 | PC.NURSE ---
received from icu into room 104.report received.vss.oriented to room environment.
[2021-07-11] VITALS (53 sets, daily range): BP systolic 113–124; BP diastolic 71–83; PULSE 68–106; RESP 0–38; TEMP 36.6–36.8; O2SAT 78–97
--- NOTE | 2021-07-11 06:25 | PC.NURSE ---
Patient with no complaints throughout the night. VSS, no pain. Right radial with no bleeding. No hematoma noted. Patient educated on leaving pulse ox on finger. Patient states that he is going home today either way he has to get there. Will continue to monitor.
--- NOTE | 2021-07-11 06:54 | PC.NURSE ---
Patient in room 4. Room 3 phoned asking to go back to bed from chair. When entering room 3 found this patient in room three with jeans on and unbuttoned. When asked why he is room 3, patient stated that he heard patient in 3 ask for help getting back to bed when she called on the calllight. Also stated he needed help hooking his jeans as he can't with the o2 probe on his finger. Asked patient to go back to his room while I helped patient in 3 get back into bed and then I returned to his room and helped him button his jeans.
--- NOTE | 2021-07-11 08:15 | USCV_ITS ---
Jerzy Quezada Age: 86 Gender: M : 1935 Exam Date: 07/11/2021 08:45 Ordering Phys: Mickey Xavier MD ([email or web address]) Technologist: Addie Babb Exam Location: [facility] – [place] Indication: PERICARDIAL EFFUSION BP: / HR: Rhythm: Sinus Technical Quality: MEASUREMENTS (Male / Female) Normal Values FINDINGS Left Ventricle Moderately increased left ventricular cavity size. Severely decreased left ventricular systolic function. Global left ventricular hypokinesis. Left ventricular ejection fraction is estimated at 25 %. Right Ventricle Right Atrium Left Atrium Mitral Valve Aortic Valve Tricuspid Valve Pulmonic Valve Pericardium Small pericardial effusion. Aorta CONCLUSIONS 1-Moderately increased left ventricular cavity size. Severely decreased left ventricular systolic function. Global left ventricular hypokinesis. Left ventricular ejection fraction is estimated at 25 %. 2-Small pericardial effusion. 3-When compared to the prior echocardiogram dated 07/10/2021 pericardial effusion has improved from moderate to small now. Mickey Xavier MD (Electronically Signed) Final Date: 11 July 2021 19:45 S
--- NOTE | 2021-07-11 09:08 | PM.DCS ---
Discharge Providers Date of Discharge: July 11, 2021 Attending Provider at Discharge: Mickey Xavier MD Primary Care Provider: Roxy Kaye APN Diagnoses at Discharge Discharge Diagnosis (1) CAD (coronary artery disease): Status: Acute Qualifiers: Associated angina: without angina Coronary Disease-Associated Artery/Lesion type: [place] artery [place] vs. transplanted heart: [place] heart Qualified Code(s): I25.10 - Atherosclerotic heart disease of [place] coronary artery without angina pectoris (2) Essential hypertension: (3) Pericardial effusion: Status: Acute (4) Epigastric discomfort: Status: Resolved Reason for Visit Reason for Visit: 49205 i25.10 atherosclerotic heart disease Hospital Course Hospital Course 86-year-old male past medical history significant for multiple comorbidities for worsening of chest pressure shortness of breath abnormal stress test and worsening of left ventricle function with severely depressed ejection fraction underwent left heart cath, he was noted to have significant proximal 90% calcified hazy stenosis treated with drug-eluting stent mid LAD was also appeared to be moderate and calcified, initially it was thought not to be significant and left for medical management. Postop patient did not felt good during recovery he was nauseated he was noted to have low blood pressure and bradycardia and continues to talk about lower and upper abdominal pressure pains which is very difficult to explain, because of persistent hypotension he was taken back to the Waste Disposal Attendant, stent in the proximal LAD was patent, I then took the IVUS and performed IVUS mid LAD appeared to be significant as I was catheter had difficulty to pass beyond the mid LAD with calcified lesion which was thought to be 60%, MLA in the proximal segment of that lesion was 2.71, it was thought to be significant therefore we treated with balloon angioplasty and drug-eluting stent. Bedside echo was performed which showed moderate pericardial effusion. Since there was no evidence of perforation and because of fact I do not have any prior echo I thought it is secondary to heart failure. Patient was started on Levophed for next 12 to 14 hours which brought the blood pressure up. Postop patient continues to have off-and-on abdominal and upper epigastric pain treated with Protonix. Over next 48 hours this medicine were optimized he is doing fine and much better. Repeat echocardiogram showed reduction in the pericardial effusion now it is small. He is being discharged home we will follow him up in clinic in 7 days. Physical Exam Narrative: EXAM NARRATIVE: GENERAL: Patient is alert, awake and oriented x3. NECK: No jugular vein distension. HEENT: No cyanosis. No icterus. No pallor. HEART: Regular S1 and S2. No murmur, rub or gallop. LUNGS: Clear to auscultate bilaterally. ABDOMEN: Soft, nontender and nondistended. Positive bowel sounds. No guarding, rebound or tenderness. CENTRAL NERVOUS SYSTEM: Grossly nonfocal. EXTREMITIES: Lower extremities without edema bilaterally. Const: COMMON NORMALS: alert Resp: COMMON NORMALS: clear to auscultation bilaterally AUSCULTATION: clear to auscultation bilaterally Neuro: SENSORIUM/ORIENTATION: Yes alert Discharge Data Data Completed and Pending: Completed Studies During Hospitalization Category Date Time Status CV. echo limited [id number] Routine Ultrasound 07/09/21 16:30 Completed CV. echo limited [id number] Stat Ultrasound 07/09/21 13:18 Completed Pending at discharge Category Date Time Status MECHANICAL CAR CHECKER request for service Routin e Exams 07/09/21 07:30 Taken MECHANICAL CAR CHECKER request for service Routin e Exams 07/09/21 12:48 Taken Basic Metabolic P jamal Routine Lab 07/11/21 08:16 Ordered CV. echo limited [id number] Routine Ultrasound 07/11/21 08:15 Ordered Vitals: Last Vital Signs Temp 97.8 F 07/11/21 07:31 Pulse 76 07/11/21 07:31 Resp 12 07/11/21 07:31 BP 119/79 07/11/21 07:31 Pulse Ox 93 07/11/21 07:31 Discharge Plan Discharge Patient Disposition: Home Prescriptions: New clopidogrel 75 mg Tablet 75 mg PO DAILY Qty: 90 RF: 4 lisinopril 2.5 mg tablet 2.5 mg PO DAILY Qty: 30 RF: 3 Continued levothyroxine 50 mcg capsule 50 mcg PO DAILY RF: 0 nitroglycerin [Nitrostat] 0.4 mg tablet, sublingual 0.4 mg sublingual Q5M PRN (Reason: chest pain) Qty: 25 RF: 3 aspirin [Adult Aspirin Regimen] 81 mg tablet,delayed release (DR/EC) 81 mg PO DAILY Qty: 90 RF: 3 Lasix 20 mg tablet 20 mg PO DAILY Qty: 90 RF: 3 metoprolol succinate 25 mg tablet extended release 24 hr 12.5 mg PO DAILY Qty: 45 RF: 3 rosuvastatin 10 mg tablet 10 mg PO DAILY Qty: 90 RF: 3 Discontinued isosorbide mononitrate 30 mg tablet extended release 24 hr 15 mg PO BID Qty: 90 RF: 3 No Action pantoprazole 40 mg tablet,delayed release (DR/EC) 40 mg PO DAILY Qty: 30 RF: 3 Discharge Orders: Discharge Order (Routine); Ordered 07/11/21 Ordered By: Mickey Xavier Referrals: Mickey Xavier MD [Physician] - 07/31/21 3:45 pm Sharon Foley FNP [Nurse Practitioner] - 07/18/21 2:30 pm Diet: Cardiac Activity: Increase activity as tolerated Patient Instructions: Lisinopril (By mouth) (Prinivil, Zestril), Clopidogrel (By mouth) (Plavix), Pantoprazole (By mouth) (Protonix), Coronary Angioplasty (DC) Activity Restrictions/Additional Instructions: Follow-up with Ms. Sharon Foley in 7 days, follow-up with Dr. Xavier in 2 weeks. Limited echo in 2 weeks for pericardial effusion before seeing Dr. Xavier Centralized Scheduling will be calling with the details of your Limited Echo. If you don't hear from them with by Thursday morning, please give them a call Discharge Date/Time: 07/11/21 14:18 Discharge Attestations Time Spent in Discharge Care*: critical care time Specific Discharge Activities: educating patient and educating and/or supporting family/caregiver Quality Metrics Clinical Quality Measures During this hospital stay, did patient experience: None Coding Level of Care Code Established Pt Acute Chg FW DC note Patient Type Established History Comprehensive Exam Comprehensive Medical Decision Making Moderate Complexity Diagnoses CAD (coronary artery disease) I25.10 Associated angina: without angina Coronary Disease-Associated Artery/Lesion type: [place] artery [place] vs. transplanted heart: [place] heart Essential hypertension I10 Pericardial effusion I31.3 Epigastric discomfort R10.13
[2021-07-11] MEDS: atorvastatin 40 mg Tablet PO (09:12)
[2021-07-11] MEDS: metoprolol succinate ER (24 HR) 25 mg Tablet 12.5 MG PO (09:12)
[2021-07-11] MEDS: clopidogrel 75 mg Tablet PO (09:12)
[2021-07-11] MEDS: FUROsemide 20 mg Tablet PO (09:12)
[2021-07-11] MEDS: aspirin 81 mg EC Tablet PO (09:12)
[2021-07-11] MEDS: levothyroxine 50 mcg Tablet PO (09:13)
[2021-07-11 11:03] LABS: Anion Gap 21.2 (5-19); Blood Urea Nitrogen 54 mg/dL (8-23); Calcium 9.6 mg/dL (8.5-10.5); Carbon Dioxide 18 mmol/L (22-29); Chloride 97 mmol/L (98-107); Glucose 120 mg/dL (65-115); Osmolality Calculated 286 mOsm/kg (285-295); Potassium 6.2 mmol/L (3.5-5.1); Sodium 130 mmol/L (136-145)
--- NOTE | 2021-07-11 12:00 | PC.NURSE ---
Patient is sitting on the side of the bed, eating lunch. Discharged is awaiting transport. Patients transport will not be here until 4:00pm, according to daughter.
--- NOTE | 2021-07-11 14:17 | PC.NURSE ---
Pt education provided, no questions or concerns, patients transport arrived and patient has left the facility.
== END 2021-07-11 14:18 | disposition home or self-care (01) ==
LOC: CCL 07:19 → ICU 16:46 → CSU 07-11 09:48
PROVIDERS: PCP Nurse Practitioner Family; Visit Provider Internal Medicine Cardiovascular Disease
DX: I25.10 Atherosclerotic heart disease of native coronary artery without angina pectoris (principal); I10 Essential (primary) hypertension; I31.3 Pericardial effusion (noninflammatory); R10.13 Epigastric pain; Z79.82 Long term (current) use of aspirin; I25.2 Old myocardial infarction; Z95.5 Presence of coronary angioplasty implant and graft; E78.5 Hyperlipidemia, unspecified; Z82.49 Family history of ischemic heart disease and other diseases of the circulatory system; Z83.3 Family history of diabetes mellitus
CPT/HCPCS: 36415; 80048; 85025; 85347; 85610; 85730; 92978; 93005; 93306; 93308; 93454; C1725; C1753; C1760; C1769; C1874; C1887; C1894; C9113; C9600; J1644; J1885; J2250; J2270; J2405; J3010; J3246; J3490; J7030; Q0163; Q9967

== ENCOUNTER 2021-07-16 15:22 | Inpatient (IN) | payer MEDICARE, SELFPAY ==
[2021-07-16] VITALS (13 sets, daily range): BP systolic 91–110; BP diastolic 61–79; PULSE 86–132; RESP 14–27; TEMP 36.4–36.7; O2SAT 92–98; BMI 20.7
--- NOTE | 2021-07-16 15:57 | XRR_ITS ---
PROCEDURE INFORMATION: Exam: XR Chest Exam date and time: 07/16/2021 3:57 PM Age: 86 years old Clinical indication: Other: Tachy TECHNIQUE: Imaging protocol: XR of the chest. Views: 1 view. COMPARISON: CR XR chest 1V portable [id number] 05/26/2021 8:52 AM FINDINGS: Lungs: Unremarkable. No consolidation. Pleural spaces: Small right pleural effusion. Heart/Mediastinum: Cardiomegaly. Bones/joints: Unremarkable. XR/XR chest 1V portable [id number] IMPRESSION: 1. Negative for infiltrate. 2. Small right pleural effusion. 3. Cardiomegaly.
--- NOTE | 2021-07-16 16:13 | ECG_ITS ---
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 Measurements Intervals [place] Rate: 135 P: [place]: QRS: 52 QRSD: 149 T: 138 QT: 313 QTc: 470 Interpretive Statements ATRIAL FIBRILLATION WITH RAPID VENTRICULAR RESPONSE LEFT BUNDLE BRANCH BLOCK [120+ ms QRS DURATION, 80+ ms Q/S IN V1/V2, 85+ ms R IN I/aVL/V5/V6] Compared to ECG 07/10/2021 07:29:09 Sinus rhythm no longer present Electronically Signed On 07-17-2021 19:53:47 SHEET METAL ERECTOR by Brien Allen M.D. [id number]
--- NOTE | 2021-07-16 16:25 | W.ED.GENADLT ---
HPI - General Adult General: Chief complaint: Weakness Stated complaint: MULTIPLE COMPLAINTS Time Seen by Provider: 07/16/21 16:12 History of Present Illness: HPI narrative: Patient is an 86-year-old male w/ hx of HTN, DM, CAD w/ recent stents to the LAD presenting to the ED with generalized weakness, dyspnea, and not acting well since the procedure. Patient underwent to stents x 2 found to have an abnormal stress test with low EF on 07/11/2020. Since then, patient per family has had dyspnea, generalized weakness and decreased p.o. intake. Family decided bring patient to the emergency room. On arrival, patient was noted to be in A. fib with RVR to the 140s. Patient denies any history of paroxysmal atrial fibrillation in the past. Denies any active chest pain he reports cough, dyspnea, decreased p.o. intake and generalized weakness. No diarrhea melena hematochezia. Denies any anticoagulation use. No prior history of DVT/PE. Onset: 5 days ago Duration:5 days Location:home Severity:moderate Associated symptoms: Reports dyspnea; Deny chest pain, nausea, rash, palpitations or vomiting Review of Systems Const: Denies: fever(s) or chills Eyes: Denies: change in vision ENMT: Denies: mouth pain Card: Denies: chest pain or palpitations Resp: Reports: dyspnea and non-productive cough GI: Denies: abdominal pain, nausea, vomiting or diarrhea : Denies: dysuria Musc: Denies: extremity pain Skin/Breast: Denies: rash or new lesions Neuro: Denies: weakness in extremities Psych: Reports: other (Normal mood) Junior/Lymph: Denies: easy bruising [facility] ED PFSH: Medical History CAD (coronary artery disease) Essential hypertension History of [place] (myocardial infarction) Hyperlipidemia Pericardial effusion Family History Brother Heart failure Brother Heart failure Sister Heart failure Mother Hypertension Heart failure Diabetes Daughter Diabetes Other Cancer Physical Exam Const: COMMON NORMALS: alert HENMT: COMMON NORMALS: atraumatic HEAD & SCALP: atraumatic MOUTH: moist mucous membranes not abnormal Eye: COMMON NORMALS: EOMs intact bilaterally and conjunctivae normal CONJUNCTIVA: Yes conjunctivae normal Neck/C-Spine: COMMON NORMALS: full ROM and supple Resp: COMMON NORMALS: normal respiratory effort and clear to auscultation bilaterally AUSCULTATION: clear to auscultation bilaterally Cardio: RATE: Other (irregular irregular tachycardia) GI: COMMON NORMALS: Soft to palpation and non-tender PALPATION: Yes Soft to palpation Extremity: COMMON NORMALS: full ROM Neuro: SENSORIUM/ORIENTATION: Yes alert MOTOR EXAM: No Abnormal motor strength present and Other motor observations present (no focal motor deficits) Psych: COMMON NORMALS: speech normal SPEECH: Yes normal speech MOOD & AFFECT: Yes euthymic mood Course Vital Signs: Vital signs: Vital Signs Temperature 97.5 F L 07/16/21 15:48 Pulse Rate 111 H 07/16/21 17:57 Respiratory Rate 26 H 07/16/21 17:57 Blood Pressure 93/61 07/16/21 17:57 Pulse Oximetry 98 07/16/21 17:57 MDM - General Adult MDM Narrative: Medical decision making narrative: Patient is an 86-year-old male with history of CAD status post stent x2 on , hypertension, DM presenting to the emergency room for evaluation of cough, generalized weakness, dyspnea since 07/11/2020. On arrival, patient was noted to be in A. fib with RVR to the 130s to 140s. No other focal findings on physical exam other than regular tachycardia. Prior history of atrial fibrillation. Patient will be worked up for new onset atrial fibrillation. Given recent immobilization and procedure, will evaluate for PE. Workup: CBC, BMP, magnesium, TSH/T4, D-dimer, BMP, EKG x2, troponin x2 Intervention: Metoprolol 2.5 mg x 2 IV, metoprolol 50 mg p.o. Reassessment, patient's blood pressure appears to be soft and 80/60 after 2.5 of IV metoprolol and 50 of p.o. metoprolol. Decision was made to not give additional 2.5 mg metoprolol. Patient is noted to be in CHF exacerbation with BNP of over 5000. Patient has troponin over 100 today. It is unclear whether this troponin is downtrending from previous visit when patient has stnet palcements. Currently pending repeat troponin. S/p digoxin. Dr. Allen will follow patient. S/p ASA. CTA is negative for PE. There is appears to be a 9 mm pericardial effusion. Decision was made to withhold Lovenox given concerns for possible worsening of pericardial effusion. Decision was made to trend the troponin. Disposition: admission Lab Data: Labs: Lab Results 07/16/21 07/16/21 07/16/21 16:43 16:43 16:43 WBC 8.6 10^3/uL 10^3/ uL (4.0-10.0) RBC 3.71 10^6/uL L 10 ^6/uL (4.1-5.3) Hgb 11.5 g/dL L g/dL (11.7-16.6) Hct 36.3 % L % (42.0-52.0) MCV 97.8 fl H fl (80-94) MCH 31.0 pg pg (28.0-34.0) MCHC 31.7 g/dL g/dL (30.0-36.0) RDW 13.9 % % (12.1-15.1) Plt Count 231 10^3/cmm 10^3 /cmm (130-400) MPV 10.1 fL fL (7.4-10.4) Neut % (Auto) 75.0 % % Lymph % (Auto) 7.8 % % Benson % (Auto) 16.4 % % Eos % (Auto) 0.1 % % Baso % (Auto) 0.1 % % Neut # (Auto) 6.43 10^3/uL 10^3 /uL (1.8-7.7) Lymph # (Auto) 0.7 10^3/uL L 10^ 3/uL (0.8-4.8) Benson # (Auto) 1.4 10^3/uL H 10^ 3/uL (0.2-0.9) Eos # (Auto) 0.0 10^3/uL 10^3/ uL (0.0-0.8) Baso # (Auto) 0.0 10^3/uL 10^3/ uL (0.0-0.1) Nucleated RBC % (a uto) 0 % % Nucleated RBCs # 0.0 /100WBC /100W BC PT 17.90 SECONDS H S ECONDS (12.1-14.9) INR 1.43 H (0.8-1.2) D-Dimer 14.21 ug/mIFEU H ug/mIFEU (0-0.59) Sodium 135 mmol/L L mmol /L (136-145) Potassium 5.4 mmol/L H mmol /L (3.5-5.1) Chloride 103 mmol/L mmol/L (98-107) Carbon Dioxide 17 mmol/L L mmol/ L (22-29) Anion Gap 20.4 H (5-19) BUN 49 mg/dL H mg/dL (8-23) Creatinine 1.3 mg/dL H mg/dL (0.7-1.2) GFR Calculation Not Reportable Glucose 116 mg/dL H mg/dL (65-115) Calculated Osmolal ity 294 mOsm/kg mOsm/ kg (285-295) Calcium 9.7 mg/dL mg/dL (8.5-10.5) Magnesium 2.8 mg/dL H mg/dL (1.7-2.3) Total Bilirubin 1.1 mg/dL mg/dL (0.15-1.2) AST 194 U/L H U/L (0-40) ALT 309 U/L H U/L (0-41) Alkaline Phosphata se 139 IU/L H IU/L (40-130) Troponin T Baselin e NT-Pro-B Natriuret Pep 5960 pg/mL H pg/m L (0-450) Total Protein 6.8 g/dL g/dL (6.6-8.7) Albumin 3.8 g/dL g/dL (3.5-5.2) Globulin 3.0 g/dL g/dL (1.3-4.6) Lipase 33 U/L U/L (13-60) TSH 4.58 uIU/mL H uIU /mL (0.27-4.20) Coronavirus 229E ( PCR) SARS-CoV-2 (PCR) 07/16/21 07/16/21 16:43 16:43 WBC RBC Hgb Hct MCV MCH MCHC RDW Plt Count MPV Neut % (Auto) Lymph % (Auto) Benson % (Auto) Eos % (Auto) Baso % (Auto) Neut # (Auto) Lymph # (Auto) Benson # (Auto) Eos # (Auto) Baso # (Auto) Nucleated RBC % (a uto) Nucleated RBCs # PT INR D-Dimer Sodium Potassium Chloride Carbon Dioxide Anion Gap BUN Creatinine GFR Calculation Glucose Calculated Osmolal ity Calcium Magnesium Total Bilirubin AST ALT Alkaline Phosphata se Troponin T Baselin e 122 ng/L H* ng/L (0-15) NT-Pro-B Natriuret Pep Total Protein Albumin Globulin Lipase TSH Coronavirus 229E ( PCR) Not detected (NOT DETECT) SARS-CoV-2 (PCR) Detected A (NOT DETECT) Imaging Data^: Other Imaging: Radiologist's impression: [address], [place] [address]N[place] ReportSigned Patient: Martin Quezada #: [id number]: 1935cct#:[id number]/Sex: 86 MADM Date: 07/16/21Loc: ERRoom/Bed:Attending Dr: Ordering Provider/Ordering MD: Mala Pizraro , [facility] Date of Service: 07/16/21 Procedure(s): XR chest 1V portable [id number] Accession Number(s): [id number] Report Number: [id number] PROCEDURE INFORMATION: Exam: XR Chest Exam date and time: 07/16/2021 3:57 PM Age: 86 years old Clinical indication: Other: Tachy TECHNIQUE: Imaging protocol: XR of the chest. Views: 1 view. COMPARISON: CR XR chest 1V portable [id number] 05/26/2021 8:52 AM FINDINGS: Lungs: Unremarkable. No consolidation. Pleural spaces: Small right pleural effusion. Heart/Mediastinum: Cardiomegaly. Bones/joints: Unremarkable. XR/XR chest 1V portable [id number] IMPRESSION: 1. Negative for infiltrate. 2. Small right pleural effusion. 3. Cardiomegaly. Dictated By:Mike Rangel MDSigned By:Mike Rangel MDSigned Date/Time:07/16/21 1629DD/ [address] [id number] Scan ReportSigned Patient: Martin Quezada #: [id number]: 1935cct#:[id number]/Sex: MADM Date: 07/16/21Loc: ERRoom/Bed:Attending Dr: Ordering Provider/Ordering MD: Dhiraj Acosta MD Date of Service: 07/16/21 Procedure(s): CT angio chest PE protcl [id number] Accession Number(s): [id number] Report Number: [id number] PROCEDURE INFORMATION: Exam: CTA Chest With Contrast Exam date and time: 07/16/2021 6:20 PM Age: 86 years old Clinical indication: Shortness of breath; Prior surgery; Surgery type: Stents; Additional info: Eval for pe TECHNIQUE: Imaging protocol: Computed tomographic angiography of the chest with contrast. 3D rendering (Not supervised by radiologist): MIP and/or 3D reconstructed images were created by the technologist. Radiation optimization: All CT scans at this facility use at least one of these dose optimization techniques: automated exposure control; mA and/or kV adjustment per patient size (includes targeted exams where dose is matched to clinical indication); or iterative reconstruction. Contrast material: VISI 320; Contrast volume: 89 ml; Contrast route: INTRAVENOUS (IV); COMPARISON: CR XR chest 1V portable [id number] 07/16/2021 4:16 PM RADIATION DOSE METRICS: Total DLP (mGy-cm): 621.94 FINDINGS: Pulmonary arteries: Normal. No pulmonary emboli. Aorta: Unremarkable. No aortic aneurysm. No aortic dissection. Lungs: Bilateral dependent atelectasis versus infiltrate. Pleural spaces: Moderate bilateral pleural effusions. Heart: Pericardial effusion measuring up to 9 mm in thickness. Coronary artery atherosclerotic calcifications. Lymph nodes: Scattered enlarged mediastinal lymph nodes measuring up to 14 mm, nonspecific. Bones/joints: Unremarkable. No acute fracture. Soft tissues: Cholelithiasis. CT/CT angio chest PE protcl [id number] IMPRESSION: 1. Negative for pulmonary embolus. 2. Moderate bilateral pleural effusions. 3. Pericardial effusion measuring up to 9 mm in thickness. 4. Coronary artery atherosclerotic calcifications. 5. Bilateral dependent atelectasis versus infiltrate. 6. Scattered enlarged mediastinal lymph nodes measuring up to 14 mm, nonspecific. 7. Cholelithiasis. Dictated By:Mike Rangel MDSigned By:Mike Rangel MDSigned Date/Time:07/16/21 1857DD/ 1820 Discharge Plan Discharge Patient Disposition: Admitted As Inpatient Clinical Impression: Atrial fibrillation with RVR, Dyspnea, Generalized weakness Condition: Stable Coding Level of Care Code ED Customer Leader for Chg Fwd Exam Comprehensive
[2021-07-16] MEDS: sodium chloride 0.9% 500 ML IV (16:41)
[2021-07-16] MEDS: metoprolol succinate ER (24 HR) 50 mg Tablet PO (16:41)
[2021-07-16] MEDS: metoprolol tartrate 1 mg/1 mL SDV 5 mL 5 MG IVP (16:41)
--- NOTE | 2021-07-16 16:47 | PC.NURSE ---
patient given 2.5 mg metoprolol iv per provider MU with patients soft blood pressure of 91/71. patient in no obvious distress. 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
[2021-07-16 16:53] LABS: Basophils % 0.1 %; Eosinophils % 0.1 %; Hematocrit 36.3 % (42.0-52.0); Hemoglobin 11.5 g/dL (11.7-16.6); Lymphocytes # 0.7 10^3/uL (0.8-4.8); Lymphocytes % 7.8 %; Mean Corpuscular HGB Conc 31.7 g/dL (30.0-36.0); Mean Corpuscular Volume 97.8 fl (80-94); Mean Platelet Volume 10.1 fL (7.4-10.4); Monocytes # 1.4 10^3/uL (0.2-0.9); Monocytes % 16.4 %; Neutrophils # 6.43 10^3/uL (1.8-7.7); Nucleated Red Blood Cells % 0 %; Platelet Count 231 10^3/cmm (130-400); Red Blood Count 3.71 10^6/uL (4.1-5.3); Red Cell Distribution Width 13.9 % (12.1-15.1); White Blood Count 8.6 10^3/uL (4.0-10.0)
[2021-07-16 17:14] LABS: Slide Review Slide Review Perform
[2021-07-16 17:28] LABS: Troponin(5th) Baseline 122 ng/L (0-15)
[2021-07-16 17:32] LABS: Alanine Aminotransferase 309 U/L (0-41); Albumin Level 3.8 g/dL (3.5-5.2); Alkaline Phosphatase 139 IU/L (40-130); Anion Gap 20.4 (5-19); Aspartate Amino Transferase 194 U/L (0-40); Blood Urea Nitrogen 49 mg/dL (8-23); Calcium 9.7 mg/dL (8.5-10.5); Carbon Dioxide 17 mmol/L (22-29); Chloride 103 mmol/L (98-107); Glucose 116 mg/dL (65-115); Lipase 33 U/L (13-60); Magnesium 2.8 mg/dL (1.7-2.3); NT Pro B Type Natriuretic Pept 5960 pg/mL (0-450); Osmolality Calculated 294 mOsm/kg (285-295); Potassium 5.4 mmol/L (3.5-5.1); Sodium 135 mmol/L (136-145); Total Bilirubin 1.1 mg/dL (0.15-1.2); Total Protein 6.8 g/dL (6.6-8.7)
[2021-07-16 17:33] LABS: Thyroid Stimulating Hormone 4.58 uIU/mL (0.27-4.20)
[2021-07-16 17:40] LABS: INR 1.43 (0.8-1.2)
[2021-07-16 17:50] LABS: D Dimer 14.21 ug/mIFEU (0-0.59)
[2021-07-16] MEDS: digoxin 250 mcg/ml INJ 2 mL IVP (17:55)
[2021-07-16] MEDS: aspirin 325 mg Tablet PO (18:00)
--- NOTE | 2021-07-16 18:06 | PM.HP ---
Providers/Chief Complaint Primary Care Provider: Roxy Kaye APN Chief Complaint: Wont eat or sleep/blood in stool History of Present Illness Jerzy Quezada is a 86 year old male with a past medical history of hypothyroidism, CAD, hypertension, pericardial effusion, recently discharged from [facility] for chest pain and NSTEMI requiring LAD stenting x2, was also found to have a moderate pericardial effusion which was found to decrease in size on repeat imaging, he had a complicated course requiring pressors, clinically improved, continue to have GI discomfort and weakness, discharged home. Patient tells me that when he got home he continued to feel weak fatigue, poor appetite, a start develop shortness of breath, with orthopnea paroxysmal nocturnal dyspnea, normal extremity edema, but was feeling short of breath with even minimal exertion. In the emergency room he was found to be in A. fib with RVR, was given fluid bolus, with 50 of metoprolol, heart rates still in the 130s, blood pressures in the 90s over 60s, map in the low 60s, was given dig oxygen, with improvement in the heart rates, MAP over 65, cardiology was consulted, currently CT angiogram of the chest pending Review of Systems Const: Denies: fever(s) ENMT: Denies: nasal congestion Resp: Denies: dyspnea, productive cough, non-productive cough or wheezing GI: Denies: abdominal pain, nausea, vomiting or melena : Denies: flank pain, dysuria or urinary frequency Musc: Denies: neck pain or back pain Skin/Breast: Denies: rash Neuro: Denies: headache(s), dizziness or vertigo Endo: Denies: polyuria or polydipsia Medications/Allergies Home Medications Medication Instructions Recorded Confirmed Last Taken Type aspirin 81 mg tablet,delayed 81 mg PO DAILY #90 tab 05/28/21 07/16/21 07/14/21 Rx release furosemide 20 mg tablet 20 mg PO DAILY #90 tab 05/28/21 07/16/21 07/15/21 Rx levothyroxine 50 mcg capsule 50 mcg PO DAILY 05/28/21 07/16/21 07/16/21 History metoprolol succinate 25 mg 12.5 mg PO DAILY #45 tab 05/28/21 07/16/21 07/15/21 Rx tablet,extended release 24 hr nitroglycerin 0.4 mg sublingual 0.4 mg SUBLINGUAL Q5M PRN #25 tab 05/28/21 07/16/21 Unknown Rx tablet rosuvastatin 10 mg tablet 10 mg PO DAILY #90 tab 05/28/21 07/16/21 07/15/21 Rx clopidogrel 75 mg PO DAILY #90 tab 07/11/21 07/16/21 07/15/21 Rx lisinopril 2.5 mg PO DAILY #30 tab 07/11/21 07/16/21 07/15/21 Rx pantoprazole 40 mg tablet,delayed 40 mg PO DAILY #30 tab 07/12/21 07/16/21 07/15/21 Rx release cyanocobalamin (vitamin B-12) 25 mcg PO DAILY 07/16/21 07/16/21 07/14/21 History [Vitamin B-12] isosorbide mononitrate 15 mg PO DAILY 07/16/21 07/16/21 07/16/21 History omega 6-ums-ouu-fish oil [Fish Oil] 2 cap PO BID 07/16/21 07/16/21 07/16/21 History Allergies Allergy/AdvReac Type Severity Reaction Status Date / Time No Known Allergies Allergy Verified 05/26/21 08:17 PFSH Acute PFSH: Medical History CAD (coronary artery disease) Essential hypertension History of [place] (myocardial infarction) Hyperlipidemia Pericardial effusion Family History Brother Heart failure Brother Heart failure Sister Heart failure Mother Hypertension Heart failure Diabetes Daughter Diabetes Other Cancer Vitals/I&O/Wt Last Vital Signs Temp 97.5 F L 07/16/21 15:48 Pulse 111 H 07/16/21 17:57 Resp 26 H 07/16/21 17:57 BP 93/61 07/16/21 17:57 Pulse Ox 98 07/16/21 17:57 Weight last 48 hrs Weight 63.503 kg Physical Exam Const: COMMON NORMALS: no acute distress and patient oriented x3 GENERAL APPEARANCE: cooperative and comfortable Eye: COMMON NORMALS: Equal, round and reactive pupils present and EOMs intact bilaterally GENERAL EYE: appearance normal, both eyes and all related structures PUPIL: Yes Equal, round and reactive pupils present Neck/C-Spine: COMMON NORMALS: full ROM and no lymphadenopathy THYROID: Thyroid normal Lymph: LYMPHATIC: no lymphadenopathy noted Resp: COMMON NORMALS: normal respiratory effort, No retractions, No use of accessory muscles and clear to auscultation bilaterally AUSCULTATION: clear to auscultation bilaterally Cardio: COMMON NORMALS: S1 normal heart sound present, S2 normal heart sound present, No gallops present (Cardio) and No clicks present (Cardio) RATE: tachycardic RHYTHM: abnormal rhythm irregularly irregular HEART SOUNDS: S1 normal heart sound present and S2 normal heart sound present GI: COMMON NORMALS: Normal to inspection, nondistended, normoactive bowel sounds present, Soft to palpation, non-tender and No hepatosplenomegaly present PALPATION: Yes Soft to palpation and Yes No hepatosplenomegaly present Extremity: COMMON NORMALS: normal to inspection, full ROM and no pedal edema Neuro: COMMON NORMALS: patient oriented x3, CN's II-XII intact bilaterally, moves all extremities and no focal motor deficits Psych: COMMON NORMALS: mental status grossly normal, Normal thought process present and cooperative THOUGHT PROCESS: Normal thought process present Data : 07/16/21 16:43 07/16/21 16:43 A&P Assessment and plan (1) Atrial fibrillation with RVR: atrial fibrillation RVR -with hemodynamic comprise, AAOX3 -given metoprolol -did not convert to NSR -given digoxin heart rate better controlled, still slightly hypotensive -amiodarone IV -Start Levophed -Will consider amiodarone boluses based on heart rates -anticoagulation on hold because of concerns for hemorrhagic pericardial effusion, r/o hemmorhagic pericardial effusion, will repeat echocardiogram -will consider cardioversion -cardiology consult -full code NSTEMI -troponin 122 -LBBB -S/p ostial LAD and mid LAD stent 1 week -seriral troponin, serial ekg -no chest pain -aspirin, plavix, statin CHF -Last EF 25% -has received lasix -following BNP -fluid restriction Moderate pericardial effusion -decreasing in size on discharge -will repeat cardiac echocardiogram KARLA on CKD -cr 1.3 -will monitor - Status: Acute (2) Dyspnea: Status: Acute (3) Generalized weakness: Status: Acute (4) Pericardial effusion: Status: Acute (5) Chest pain: Status: Acute (6) Hyperlipidemia: Status: Acute Qualifiers: Hyperlipidemia type: pure hypercholesterolemia Qualified Code(s): E78.00 - Pure hypercholesterolemia, unspecified (7) CAD (coronary artery disease): Status: Acute Qualifiers: Associated angina: without angina Coronary Disease-Associated Artery/Lesion type: [place] artery [place] vs. transplanted heart: [place] heart Qualified Code(s): I25.10 - Atherosclerotic heart disease of [place] coronary artery without angina pectoris Attestations Medical Necessity Statement*: Patient requires hospitalization, inpatient, greater than 2 midnights, for A. fib with RVR, ICU admission, requiring pressors Coding Level of Care Code Acute Global Supply Chain Director for Chg Fwd Exam Comprehensive Diagnoses Atrial fibrillation with RVR I48.91 Dyspnea R06.00 Generalized weakness R53.1 Pericardial effusion I31.3 Chest pain R07.9 Hyperlipidemia E78.00 Hyperlipidemia type: pure hypercholesterolemia CAD (coronary artery disease) I25.10 Associated angina: without angina Coronary Disease-Associated Artery/Lesion type: [place] artery [place] vs. transplanted heart: [place] heart
--- NOTE | 2021-07-16 18:13 | ECG_ITS ---
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 Measurements Intervals [place] Rate: 106 P: NC: QRS: 50 QRSD: 155 T: 113 QT: 363 QTc: 483 Interpretive Statements ATRIAL FIBRILLATION WITH RAPID VENTRICULAR RESPONSE LEFT BUNDLE BRANCH BLOCK [120+ ms QRS DURATION, 80+ ms Q/S IN V1/V2, 85+ ms R IN I/aVL/V5/V6] Compared to ECG 07/16/2021 16:00:28 No significant changes Electronically Signed On 07-17-2021 20:04:44 NEON SIGN INSTALLER by Brien Allen M.D. [email or web address]
--- NOTE | 2021-07-16 18:20 | CTR_ITS ---
PROCEDURE INFORMATION: Exam: CTA Chest With Contrast Exam date and time: 07/16/2021 6:20 PM Age: 86 years old Clinical indication: Shortness of breath; Prior surgery; Surgery type: Stents; Additional info: Eval for pe TECHNIQUE: Imaging protocol: Computed tomographic angiography of the chest with contrast. 3D rendering (Not supervised by radiologist): MIP and/or 3D reconstructed images were created by the technologist. Radiation optimization: All CT scans at this facility use at least one of these dose optimization techniques: automated exposure control; mA and/or kV adjustment per patient size (includes targeted exams where dose is matched to clinical indication); or iterative reconstruction. Contrast material: VISI 320; Contrast volume: 89 ml; Contrast route: INTRAVENOUS (IV); COMPARISON: CR XR chest 1V portable [id number] 07/16/2021 4:16 PM RADIATION DOSE METRICS: Total DLP (mGy-cm): 621.94 FINDINGS: Pulmonary arteries: Normal. No pulmonary emboli. Aorta: Unremarkable. No aortic aneurysm. No aortic dissection. Lungs: Bilateral dependent atelectasis versus infiltrate. Pleural spaces: Moderate bilateral pleural effusions. Heart: Pericardial effusion measuring up to 9 mm in thickness. Coronary artery atherosclerotic calcifications. Lymph nodes: Scattered enlarged mediastinal lymph nodes measuring up to 14 mm, nonspecific. Bones/joints: Unremarkable. No acute fracture. Soft tissues: Cholelithiasis. CT/CT angio chest PE protcl [id number] IMPRESSION: 1. Negative for pulmonary embolus. 2. Moderate bilateral pleural effusions. 3. Pericardial effusion measuring up to 9 mm in thickness. 4. Coronary artery atherosclerotic calcifications. 5. Bilateral dependent atelectasis versus infiltrate. 6. Scattered enlarged mediastinal lymph nodes measuring up to 14 mm, nonspecific. 7. Cholelithiasis.
[2021-07-16 18:39] LABS: Adenovirus Not Detected (NOT DETECT); Chlamydia Pneumoniae Not Detected (NOT DETECT); Coronavirus 229E,HKU1,NL63,OC4 Not Detected (NOT DETECT); Human Metapneumovirus Not Detected (NOT DETECT); Human Rhinovirus/Enterovirus Not Detected (NOT DETECT); Influenza A Not Detected (NOT DETECT); Influenza A H1 Not Detected (NOT DETECT); Influenza A H1-2009 Not Detected (NOT DETECT); Influenza A H3 Not Detected (NOT DETECT); Influenza B Not Detected (NOT DETECT); Mycoplasma Pneumoniae Not Detected (NOT DETECT); Parainfluenza Virus Type 1 Not Detected (NOT DETECT); Parainfluenza Virus Type 2 Not Detected (NOT DETECT); Parainfluenza Virus Type 3 Not Detected (NOT DETECT); Parainfluenza Virus Type 4 Not Detected (NOT DETECT); Respiratory Syncytial Virus A Not Detected (NOT DETECT); Respiratory Syncytial Virus B Not Detected (NOT DETECT); SARS-COV-2 Detected (NOT DETECT)
[2021-07-16] MEDS: iodixanol 320 mg/mL 100mL Btl IV (18:45)
[2021-07-16 19:21] LABS: Lactic Sepsis W/Reflex 3.2 mmol/L (0.5-2.2); Troponin 5 2HR Delta -3.6 ABS# (0-10)
[2021-07-16 19:22] LABS: Troponin 5 2HR 118.4 ng/L (0-15)
--- NOTE | 2021-07-16 19:33 | P.CONIM_ITS ---
Providers/Reason For Consult Consulting Physician/Specialty*: ADAIR Allen MD/cardiology Reason for Consult*: Patient was atrial fibrillation/hypertension Requesting Physician: Dr. Steiner Primary Care Provider: Roxy Kaye APN History of Present Illness History of Present Illness Jerzy Quezada is a 86 year old male presenting to the emergency room with complaints of chest discomfort and shortness of breath. He was finding it difficult to lie down in the night. Patient was found to be atrial fibrillation rapid ventricular rate. He also is hypotensive. Cardiology consult is requested for further cardiac evaluation and recommendations. This patient was recently discharged from the hospital where he was admitted following a percutaneous intervention of the proximal LAD lesion on 07/09/2021. He had a high-grade calcified lesion in the proximal LAD which was stented. He had a moderate lesion in the LAD which was initially left alone. Because of the patient's ongoing chest symptoms, he was brought back to the cardiac Tourism Radio Presenter. I was centration revealed that the lesion was significant. He underwent angioplasty and stent placement of the mid LAD lesion by Dr. Xavier. Patient also was found to have moderate pericardial effusion by echocardiogram. Etiology of the patient was thought to be heart failure. Follow-up echocardiogram revealed the pericardial effusion improving. Patient continued to have some lower substernal/epigastric chest discomfort. Since hospital discharge, patient has not had any significant chest pains. He started having more and more short of breath. He was finding it difficult to lie down. He also had some chest pressure/palpitation. No dizziness or syncopal episodes. Denies any fever or chills. For the last 2 nights, he could not sleep at night. He has some constant tightness/discomfort in the left side of the chest. No other specific complaints. Review of Systems Narrative: CONSTITUTIONAL: No fever or chills. [] EYES: No blurring of vision or other visual disturbances lately. [] ENT: No hoarseness of voice, auditory disturbances or sore throat. [] CARDIOVASCULAR: As mentioned above. [] RESPIRATORY: No significant cough. [] GASTROINTESTINAL: No hematemesis or melena. [] GENITOURINARY: No dysuria or hematuria. [] INTEGUMENTARY: No skin rashes or history of skin cancer. [] NEURO: No transient ischemic attacks or amaurosis. [] PSYCHIATRIC: No history of psychosis or major depression. [] HEMATOLOGIC: No bleeding disorders or significant anemia. [] ENDOCRINE: No history of polyuria or polydipsia. [] MUSCULOSKELETAL: No recent joint pain or swelling. [] ALLERGY/IMMUNOLOGY: As mentioned above. [] Meds/Allergies Home Medications and Allergies Allergies Allergy/AdvReac Type Severity Reaction Status Date / Time No Known Allergies Allergy Verified 05/26/21 08:17 PFSH Acute PFSH: Medical History (Updated 07/21/21 @ 16:31 by Vick Sherwood) CAD (coronary artery disease) Diabetes mellitus Essential hypertension History of NH (myocardial infarction) Hyperlipidemia Pericardial effusion Surgical History (Updated 07/22/21 @ 08:27 by Elliott Wilkins MD) S/P angioplasty with stent S/P dialysis catheter insertion (07/19/21) Family History Brother Heart failure Brother Heart failure Sister Heart failure Mother Hypertension Heart failure Diabetes Daughter Diabetes Other Cancer Vitals/I&O/Wt Last Vital Signs Temp 97.5 F L 07/16/21 15:48 Pulse 111 H 07/16/21 17:57 Resp 26 H 07/16/21 17:57 BP 93/61 07/16/21 17:57 Pulse Ox 98 07/16/21 17:57 Weight last 48 hrs Weight 140 lb Physical Exam Narrative: EXAM NARRATIVE: GENERAL: The patient is alert and oriented times three. Not in any acute distress. [] HEENT: Minimal pallor, no icterus or lymphadenopathy. The pupils are reactant to light. Oral cavity: There are no mucous membrane lesions. Funduscopic examination: The disk margins appear to be sharp with no exudates or hemorrhages. NECK: Trachea appears to be central. No masses noted. No JVD or thyromegaly appreciated. No carotid bruit. RESPIRATORY: Chest is symmetrical. No intercostals muscle retraction or any accessory muscle activation. There is no chest wall tenderness. Breath sounds are heard bilaterally. No rales or rhonchi heard. No evidence of any consolidation. BREASTS: Deferred. HEART: The PMI is in the 5th left intercostals space just inside the midclavicul ar line. No palpable precordial events. S1 and S2 are normal. No S3 or S4 heard. Pericardial rub is present subcu Lovenox and pericarditis pericarditis ABDOMEN: No vessel pulsations or distention. No tenderness. No organomegaly appreciated. No abdominal bruit. Bowel sounds are normally heard. : Deferred. RECTAL: Deferred. LYMPHATIC: No lymphadenopathy noted in the neck or groin. EXTREMITIES: No edema or cyanosis. No clubbing. The pulses are symmetrical bilaterally. The radial, femoral, dorsalis pedis and the posterior tibial pulses are palpated and found to be in good volume and amplitude. MUSCULOSKELETAL: No acute joint deformities or swelling SKIN: There are no significant scars or skin rash noted. NEUROPSYCHIATRIC: The patient is alert and oriented x3. Appears to be in a good mood. The higher functions are grossly within normal limits. No tremors or rigidity noted. Data : 07/23/21 04:53 07/23/21 04:53 A&P Assessment and plan (1) Atrial fibrillation with RVR: Further rate control, patient may be tried on IV digoxin 0.25 mg every 6 hours to a maximum dose of 1 mg. Then the dose need to be adjusted for renal function. Status: Acute (2) Acute on chronic systolic heart failure: Patient may be carefully treated with IV diuretics. An echocardiogram would be helpful to evaluate LV function I will review the pathology Status: Acute (3) Atherosclerotic heart disease of [place] coronary artery with other forms of angina pectoris: Since the patient has no specific symptoms of coronary insufficiency, may hold off for the further evaluation at this time. He had a PCI of the LAD lesion on the fourth of this month Status: Acute (4) Hyperlipidemia: Continue on the current medication. Status: Acute Qualifiers: Hyperlipidemia type: pure hypercholesterolemia Qualified Code(s): E78.00 - Pure hypercholesterolemia, unspecified (5) Pericarditis: Patient may be started on colchicine 0.6 mg daily. May go ahead and do a limited 2D echocardiogram to follow-up on the pericardial effusion Status: Acute Qualifiers: Chronicity: unspecified Pericarditis type: unspecified type Qualified Code(s): I31.9 - Disease of pericardium, unspecified Additional A&P Information Based on the patient clinical progress and the results of the above, further recommendations will be made. Thank for the opportunity to eval this patient and make these recommendations Consult Attestations Medical Necessity Statement: Patient requires continued hospital stay for close monitoring and further management Coding Level of Care Code Acute Supervisor Type Disk Quality Control for Chg Fwd History Detailed Exam Detailed Medical Decision Making Moderate Complexity Diagnoses Atrial fibrillation with RVR I48.91 Acute on chronic systolic heart failure I50.23 Atherosclerotic heart disease of [place] coronary artery with other forms of angina pectoris I25.118 Hyperlipidemia E78.00 Hyperlipidemia type: pure hypercholesterolemia Pericarditis I31.9 Chronicity: unspecified Pericarditis type: unspecified type
[2021-07-16 19:58] LABS: Add Urine Microscopic? YES; Bacteria Urine 1+ /hpf; Bilirubin Urine 1+ (Negative); Blood Urine Neg (Negative); Glucose Urine UA Norm (Normal); Ketones Urine Negative (Negative); Leukocyte Esterase Urine Negative (Negative); Mucus Urine 1+ /hpf; Nitrate Urine Negative (Negative); Protein Urine 1+ (Negative); Urine Appearance Clear (CLEAR); Urine Color Yellow (Yellow); Urobilinogen Urine 4 mg/dL (Negative); WBC Urine 0-4 /hpf (0-5); pH Urine 5 (5-7)
[2021-07-16 19:59] LABS: Add Urine Culture? No
[2021-07-16 20:19] LABS: Free T4 Free Thyroxine 1.39 ng/dL (0.82-1.77)
[2021-07-16 20:43] LABS: Reflex Lactate Order REFLEX LACTIC ORDERD
[2021-07-16] MEDS: enoxaparin 80 mg/0.8 mL Syringe 60 MG SUBCUT (22:45)
[2021-07-16 22:52] LABS: Lactic Acid level (Lactate) 2.2 mmol/L (0.5-2.2)
[2021-07-17] VITALS (84 sets, daily range): BP systolic 61–141; BP diastolic 46–88; PULSE 58–120; RESP 18–40; TEMP 36.9–37; O2SAT 76–100
[2021-07-17] MEDS: colchicine 0.6 mg Tablet PO (00:07)
[2021-07-17 04:04] LABS: Basophils % 0.2 %; Eosinophils % 0.1 %; Hematocrit 40.2 % (42.0-52.0); Hemoglobin 12.5 g/dL (11.7-16.6); Lymphocytes % 9.8 %; Mean Corpuscular HGB Conc 31.1 g/dL (30.0-36.0); Mean Corpuscular Hemoglobin 31.6 pg (28.0-34.0); Mean Corpuscular Volume 101.8 fl (80-94); Mean Platelet Volume 10.4 fL (7.4-10.4); Monocytes # 1.3 10^3/uL (0.2-0.9); Monocytes % 13.3 %; Neutrophils # 7.54 10^3/uL (1.8-7.7); Neutrophils % 75.4 %; Nucleated Red Blood Cells % 0.2 %; Platelet Count 255 10^3/cmm (130-400); Red Blood Count 3.95 10^6/uL (4.1-5.3); Red Cell Distribution Width 14.1 % (12.1-15.1)
[2021-07-17 04:29] LABS: Anion Gap 24.7 (5-19); Blood Urea Nitrogen 58 mg/dL (8-23); Calcium 8.5 mg/dL (8.5-10.5); Carbon Dioxide 14 mmol/L (22-29); Chloride 99 mmol/L (98-107); Glucose 91 mg/dL (65-115); Osmolality Calculated 290 mOsm/kg (285-295); Potassium 5.7 mmol/L (3.5-5.1); Sodium 132 mmol/L (136-145)
[2021-07-17 04:31] LABS: Slide Review Slide Review Perform
--- NOTE | 2021-07-17 04:56 | USCV_ITS ---
Jerzy Quezada Age: 86 Gender: M : 1935 Exam Date: 07/17/2021 06:20 Ordering Phys: Anne Hess MD Technologist: ROCAEL Exam Location: [facility] – [place] Indication: LLE PAIN HISTORY: Lower extremity pain. PROCEDURES: Venous duplex imaging was performed in only the left lower extremity. The following venous structures were evaluated: common femoral vein, profunda vein, proximal portion of the greater saphenous vein, superficial femoral vein, and the popliteal vein. In addition, the posterior tibial and peroneal trunk were evaluated. Serial compression, augmentation maneuvers, and spectral Doppler flow evaluation were performed. FINDINGS: No evidence of DVT seen in any vessel visualized at this time. CONCLUSIONS No evidence of left lower extremity DVT. Lucio Avitia MD (Electronically Signed) Final Date: 17 July 2021 09:46 S
[2021-07-17] MEDS: dextrose 50% syringe 50 mL IVP (05:21)
[2021-07-17] MEDS: insulin regular-human 10 UNIT in SYRINGE 1 EACH IVP (05:21)
[2021-07-17] MEDS: ondansetron 2 mg/ML SDV 2 mL 4 MG IVP ×2 (05:29→11:42)
--- NOTE | 2021-07-17 06:41 | PC.NURSE ---
Patient arrived from ER around 2315. Patient remained alert and oriented x4. Patient has been in Afib all night. HR was first 85-105, but throughout the night now remains 60-100. Placed the patient on 2LNC. Had 150 of urine output out and 1 bowel movement. Patient complained of left calf pain, but not tender to palpation, not warm, no redness. Called Dr. Hess at 0100 in regards to the patients K being 5.4, orders to check another BMP with other morning labs. Called Dr. Hess at 0450 in regards to the patients K being 5.7 and left calf tenderness. Orders for 10units of insulin and 1 full amp of D50 and to order a venous ultrasound doppler. Orders to also check another BMP at 0900.
[2021-07-17] MEDS: pantoprazole DR 40 mg Tablet PO (08:09)
[2021-07-17] MEDS: clopidogrel 75 mg Tablet PO (08:09)
[2021-07-17] MEDS: levothyroxine 50 mcg Tablet PO (08:09)
[2021-07-17] MEDS: aspirin 81 mg EC Tablet PO (08:09)
[2021-07-17] MEDS: atorvastatin 40 mg Tablet 20 MG PO (08:09)
--- NOTE | 2021-07-17 08:40 | US_ITS ---
WS: [id number] ULTRASOUND ABDOMEN LIMITED CLINICAL INFORMATION: elevated lft, alkphos COMPARISON: None. FINDINGS: Liver Size: Normal. Craniocaudal length: 12.4 cm. Echogenicity: Normal. Surface nodularity: None. Mass (size and location): None. Bile ducts Intrahepatic ducts: Normal. Common bile duct diameter: 0.3 cm. Gallbladder Cholelithiasis. No gallbladder wall thickening. Gallstones: Present Gallbladder sludge: None. Gallbladder wall thickening: None. Pericholecystic fluid: None. Sonographic Oliveira sign: Absent. Pancreas Normal as visualized. Right kidney: Normal. Hydronephrosis: None. Size: 9.6 cm x 5.7 cm x 5.2 cm. Abdominal aorta and IVC Visualized portions are normal. Ascites: Partially visualized right pleural effusion US/US gall bladder 23668 IMPRESSION: 1. Normal liver. No intrahepatic biliary ductal dilatation. 2. Shadowing Cholelithiasis. Gallbladder is otherwise normal. 3. Normal common bile duct. 4. No hydronephrosis in right kidney.
[2021-07-17] MEDS: zinc gluconate 50 mg Tablet PO (09:13)
[2021-07-17] MEDS: amiodarone 200 mg Tablet 400 MG PO (09:13)
[2021-07-17] MEDS: cefTRIAXone 1,000 MG in sodium chloride 0.9% (plus) 50 ML 100 MG IV (09:13)
[2021-07-17] MEDS: dexamethasone 10 mg/mL INJ 6 MG IVP (09:13)
[2021-07-17] MEDS: ascorbic acid 500 mg Tablet PO ×2 (09:13→18:32)
[2021-07-17] MEDS: cholecalciferol (vitamin D3) 1,000 unit Tablet 2000 UNIT PO (09:13)
--- NOTE | 2021-07-17 09:58 | PC.CHAP ---
Pastoral Care Encounter/Spiritual Assessment Type of Contact [] Declined structures mechanic visit [] Patient/Family/Request visit [] Outpatient visit [] Follow-up visit [] Physician referral [] Code/Alert [x] Routine visit [] Staff referral [] Actively dying [] Patient sleeping [] Family support [] [] Out of room [] Palliative care [] [] Receiving care in room [] Pre-surgical visit [] Trauma [] Long length of stay [x] ICU visit [] Other: Relational/Emotional Strength [] Patient feels connected with others/family/visitors/staff [] Distress [] Loneliness/isolation [] Abandonment Spirituality of Patient [] Person of [place] [] Attends Judaism of their [place] [] Believes in Prayer [] Reads Bible or Nondenominational materials [] There are Spiritual issues to be addressed Manager Registration Interventions [x] Prayer [x] Active listening [x] Non-anxious presence [x] Spiritual/emotional support [] Crisis/trauma care [] Spiritual counseling [] Bereavement support [] Provided bereavement packet [] Provided Bible/devotional materials [] Provided toy/stuffed animal, coloring book to patient or family member [] Provided Communion [] Anointing/[place] [] Salvation [x] Completed spiritual assessment [] Other: Impact on Illness or Injury [] Angry [] Fearful [] Anxious [] Often cries [] Exhaustion [] Unable to work [] Unable to attend orthodoxy [] Unable to walk/stand [] Unable to read [] Unable to drive [] Unable to eat/drink [] Unable to sleep [] Unable to be with family [] Patient intubated [] Other: Summary ordered patient soft food and he stated he would eat some... Time spent with patient 5 min
[2021-07-17] MEDS: remdesivir 200 MG in sodium chloride 0.9% (100 ml) 60 ML 100 MG IV (09:59)
[2021-07-17 10:15] LABS: Anion Gap 25.5 (5-19); Blood Urea Nitrogen 59 mg/dL (8-23); Calcium 8.5 mg/dL (8.5-10.5); Carbon Dioxide 14 mmol/L (22-29); Chloride 99 mmol/L (98-107); Glucose 103 mg/dL (65-115); Osmolality Calculated 293 mOsm/kg (285-295); Potassium 5.5 mmol/L (3.5-5.1); Sodium 133 mmol/L (136-145)
[2021-07-17 10:36] LABS: Glucose Point of Care 160 mg/dL (70-110)
--- NOTE | 2021-07-17 10:40 | PC.NURSE ---
0700 Report received, assessment completed. AAOx4, VSS. Makes all needs known. Amio gtt at 0.5mgmin. Denies any pain at this time. 0800 Meds given with water. Swallows well without difficulty or choking noted. Breakfast given, only ate small amount. ST/PT/OT to eval pt today. Will monitor.
[2021-07-17] MEDS: azithromycin 500 MG in sodium chloride 0.9% 250 ML 250 MG IV (10:55)
--- NOTE | 2021-07-17 12:07 | PC.NURSE ---
1140 Pt c/o nausea. Zofran administered per PRN order. BP decreased. 20g PIV started to DEVON. Levophed started per orders. Initially started at 4mcg/min, MD gave VO to increase to get MAP >65. Increased to 10mcg/min. Pt bradycardic at times. C/o continuing nausea.
--- NOTE | 2021-07-17 12:09 | ECG_ITS ---
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 Measurements Intervals [place] Rate: 65 P: 83 VA: 200 QRS: 38 QRSD: 180 T: 39 QT: 484 QTc: 505 Interpretive Statements SINUS RHYTHM LEFT BUNDLE BRANCH BLOCK [120+ ms QRS DURATION, 80+ ms Q/S IN V1/V2, 85+ ms R IN I/aVL/V5/V6] Compared to ECG 07/16/2021 18:52:58 Atrial fibrillation no longer present Electronically Signed On 07-17-2021 19:57:32 CHEMICAL COMPOUNDER HELPER by Brien Allen M.D. [email or web address] countyUp [facility].[email or web address]/store/[id number]
[2021-07-17] MEDS: metoclopramide 5 mg/mL SDV 2 mL IVP (12:24)
--- NOTE | 2021-07-17 12:43 | PC.SLP ---
Nursing requested patient not be see for speech and swallowing evaluation due to nausea and blood pressure issues. Will continue to monitor and assess patient when appropriate.
[2021-07-17 14:07] LABS: Troponin(5th) Baseline 175 ng/L (0-15)
--- NOTE | 2021-07-17 14:08 | ECG_ITS ---
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 Measurements Intervals [place] Rate: 71 P: 87 OR: 165 QRS: 53 QRSD: 173 T: 49 QT: 443 QTc: 483 Interpretive Statements SINUS RHYTHM LEFT BUNDLE BRANCH BLOCK [120+ ms QRS DURATION, 80+ ms Q/S IN V1/V2, 85+ ms R IN I/aVL/V5/V6] Compared to ECG 07/17/2021 12:18:10 No significant changes Electronically Signed On 07-17-2021 20:12:38 SHRINK PIT SUPERVISOR by Brien Allen M.D. [email or web address] [facility].[email or web address]/store/[id number]
--- NOTE | 2021-07-17 14:20 | PC.NURSE ---
Report given to Bj ADAN.
[2021-07-17 16:03] LABS: Troponin 5 2HR Delta 7.2 ABS# (0-10)
[2021-07-17 16:11] LABS: Troponin 5 2HR 182.2 ng/L (0-15)
[2021-07-17] MEDS: enoxaparin 80 mg/0.8 mL Syringe 70 MG SUBCUT (16:43)
[2021-07-17] MEDS: midodrine 5 mg TABLET 10 MG PO (16:43)
--- NOTE | 2021-07-17 17:20 | PM.PN ---
Subjective Subjective: Interval history: She was seen early in the morning, his heart rates in the 60s, blood pressures are more normotensive, he tells me he is feeling a lot better, no nausea, no vomiting, his weakness has improved, he is found to be COVID-positive, on 2 L, Patient was reexamined this afternoon, his blood pressures had dropped into the low 60s over 40s, 55, heart rates in the 60s, complaining of a lot of nausea, some lightheadedness, no chest pain, no shortness of breath Vitals/I&O/Wt Last Vital Signs Temp 98.6 F 07/17/21 08:00 Pulse 73 07/17/21 16:30 Resp 26 H 07/17/21 16:30 BP 136/75 07/17/21 16:30 Pulse Ox 92 07/17/21 16:30 07/17/21 07/17/21 07/17/21 06:59 14:59 22:59 Intake Total 103.1 / 103.1 1059.443 / 1059.443 80.772 / 1140.215 Output Total 150 / 150 100 / 100 Balance -46.9 / -46.9 959.443 / 959.443 80.772 / 1040.215 Weight last 48 hrs Weight 68.492 kg Weight 63.503 kg Physical Exam Const: COMMON NORMALS: no acute distress ORIENTATION/CONSCIOUSNESS: Yes awake, Yes oriented to person, Yes oriented to place and Yes oriented to time Resp: COMMON NORMALS: normal respiratory effort, No retractions, No use of accessory muscles and clear to auscultation bilaterally AUSCULTATION: clear to auscultation bilaterally Cardio: COMMON NORMALS: regular rate, regular rhythm, S1 normal heart sound present and S2 normal heart sound present RATE: regular rate RHYTHM: regular rhythm HEART SOUNDS: S1 normal heart sound present and S2 normal heart sound present GI: COMMON NORMALS: Normal to inspection, nondistended, normoactive bowel sounds present, Soft to palpation and non-tender PALPATION: Yes Soft to palpation Extremity: COMMON NORMALS: no pedal edema Neuro: SENSORIUM/ORIENTATION: Yes oriented to person, Yes oriented to place and Yes oriented to time Data : 07/17/21 03:10 07/17/21 09:50 A&P Assessment and plan (1) Atrial fibrillation with RVR: Shock -Etiology unclear at this time -Is COVID positive, no UTI, no pneumonia, no cholelithiasis -Likely multifactorial from A. fib, NSTEMI, CHF -Possible contribution of pericardial effusion -I did discuss with cardiology, reviewed echocardiogram, no significant tamponade physiology -For now we will start on Levophed, midodrine -Monitor blood pressures, monitor heart rate COVID-19 pneumonia -Requiring 2 L -Start remdesivir -Decadron -Rocephin and azithromycin -Vitamin C, zinc, vitamin D - incentive spirometer flutter valve -Ipratropium, budesonide -Monitor respiratory status closely atrial fibrillation RVR -No hemodynamic compromise, AAOX3 -given metoprolol -did not convert to NSR -given digoxin heart rate better controlled, still slightly hypotensive -Amiodarone 400 mg twice daily -Start Levophed -Therapeutic Lovenox -Cardiac echocardiogram - LV ejection fraction around 20%. Wall motion normalities as mentioned above. Mildly dilated LV cavity Normal RV size with a slightly diminished ejection fraction Mild biatrial enlargement. Small to moderate pericardial effusion Compared to study from 07/11/2021, pericardial effusion remains the same or slightly worse -will consider cardioversion -cardiology consult -full code NSTEMI -LBBB -S/p ostial LAD and mid LAD stent 1 week -seriral troponin, serial ekg -no chest pain -aspirin, plavix, therapeutic Lovenox, statin CHF -Last EF 25% -has received lasix in the emergency room -Creatinine up to 1.8, hold Lasix for now -following BNP -fluid restriction Moderate pericardial effusion -decreasing in size on discharge - LV ejection fraction around 20%. Wall motion normalities as mentioned above. Mildly dilated LV cavity Normal RV size with a slightly diminished ejection fraction Mild biatrial enlargement. Small to moderate pericardial effusion Compared to study from 07/11/2021, pericardial effusion remains the same or slightly worse -Started on colchicine, monitor creatinine Pericarditis -Has a pericardial friction rub on exam -Does have chest pain complaints on admission, none currently -Continue colchicine -Possibly related to COVID-19? KARLA on CKD -cr 1.8 -will monitor - Status: Acute (2) Dyspnea: Status: Acute (3) Generalized weakness: Status: Acute (4) Pericardial effusion: Status: Acute (5) Chest pain: Status: Acute (6) Hyperlipidemia: Status: Acute Qualifiers: Hyperlipidemia type: pure hypercholesterolemia Qualified Code(s): E78.00 - Pure hypercholesterolemia, unspecified (7) CAD (coronary artery disease): Status: Acute Qualifiers: Coronary Disease-Associated Artery/Lesion type: crow artery [place] vs. transplanted heart: crow heart Associated angina: without angina Qualified Code(s): I25.10 - Atherosclerotic heart disease of [place] coronary artery without angina pectoris (8) Shock: Status: Acute (9) Pneumonia due to COVID-19 virus: Status: Acute (10) Pericarditis: Status: Acute Qualifiers: Pericarditis type: unspecified type Chronicity: unspecified Qualified Code(s): I31.9 - Disease of pericardium, unspecified (11) Atherosclerotic heart disease of [place] coronary artery with other forms of angina pectoris: Status: Acute (12) Acute on chronic systolic heart failure: Status: Acute Attestations Medical Necessity Statement*: Patient requires hospitalization due to shock, COVID-19, atrial fibrillation, NSTEMI, pericardial effusion Coding Level of Care Code Acute Non Destructive Testing Technician for [facility] F[facility] Diagnoses Atrial fibrillation with RVR I48.91 Dyspnea R06.00 Generalized weakness R53.1 Pericardial effusion I31.3 Chest pain R07.9 Hyperlipidemia E78.00 Hyperlipidemia type: pure hypercholesterolemia CAD (coronary artery disease) I25.10 Coronary Disease-Associated Artery/Lesion type: crow artery [place] vs. transplanted heart: crow heart Associated angina: without angina Shock R57.9 Pneumonia due to COVID-19 virus U07.1; J12.82 Pericarditis I31.9 Pericarditis type: unspecified type Chronicity: unspecified Atherosclerotic heart disease of [place] coronary artery with other forms of angina pectoris I25.118 Acute on chronic systolic heart failure I50.23
--- NOTE | 2021-07-17 18:08 | ECG_ITS ---
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 Measurements Intervals [place] Rate: 74 P: 83 SC: 153 QRS: 44 QRSD: 175 T: 120 QT: 437 QTc: 487 Interpretive Statements SINUS RHYTHM LEFT BUNDLE BRANCH BLOCK [120+ ms QRS DURATION, 80+ ms Q/S IN V1/V2, 85+ ms R IN I/aVL/V5/V6] Compared to ECG 07/17/2021 15:52:28 No significant changes Electronically Signed On 07-17-2021 20:13:22 ROUND UP RING HAND by Brien Allen M.D. [id number]
--- NOTE | 2021-07-17 20:04 | USCV_ITS ---
Jerzy Quezada Age: 86 Gender: M : 1935 Exam Date: 07/17/2021 06:12 Ordering Phys: Brien Allen MD ([email or web address]) Technologist: ROCAEL Exam Location: [facility] [place] Indication: LIMITED ONLY FOR PERICARDITIS/EFFUSION BP: 112 / 68 HR: Rhythm: Sinus Technical Quality: Adequate MEASUREMENTS (Male / Female) Normal Values DOPPLER Right Atrial Pressure 15.0 mmHg FINDINGS Left Ventricle Severe diffuse hypokinesis of the left ventricle with somewhat dyskinetic apex. LV ejection fraction around 20% Right Ventricle Normal RV size with a slightly diminished ejection fraction Right Atrium Mildly increased right atrial size. Left Atrium Mildly increased left atrial size. Mitral Valve No gross abnormalities noted . Aortic Valve No gross abnormalities noted Tricuspid Valve No gross abnormalities noted Pulmonic Valve No gross abnormalities noted Pericardium Small to moderate pericardial effusion Aorta Normal aortic annulus size. CONCLUSIONS LV ejection fraction around 20%. Wall motion normalities as mentioned above. Mildly dilated LV cavity Normal RV size with a slightly diminished ejection fraction Mild biatrial enlargement. Small to moderate pericardial effusion Compared to study from 07/11/2021, pericardial effusion remains the same or slightly worse Dr Brien Allen MD FACC (Electronically Signed) Final Date: 17 July 2021 08:42 S
[2021-07-17 20:09] LABS: Troponin 5 6HR 162.7 ng/L (0-15); Troponin 5 6HR Delta -12.3 ng/L (0-12)
[2021-07-17] MEDS: budesonide 0.5 mg/2 mL Neb INHALATION (20:42)
--- NOTE | 2021-07-17 21:19 | PM.PN ---
Subjective Subjective: Interval history: Please note that I have not seen the patient since he is in COVID isolation, clinical impression is based on through interacting with my medicine colleague and the nurses and computer data Vitals/I&O/Wt Last Vital Signs Temp 98.6 F 07/17/21 08:00 Pulse 76 07/17/21 20:49 Resp 18 07/17/21 20:42 BP 136/75 07/17/21 16:30 Pulse Ox 96 07/17/21 20:42 07/17/21 07/17/21 07/17/21 06:59 14:59 22:59 Intake Total 103.1 / 103.1 1059.443 / 1059.443 357.094 / 1416.537 Output Total 150 / 150 100 / 100 Balance -46.9 / -46.9 959.443 / 959.443 357.094 / 1316.537 Weight last 48 hrs Weight 151 lb Weight 140 lb Physical Exam Narrative: EXAM NARRATIVE: Patient was not examined Data : 07/17/21 03:10 07/17/21 09:50 A&P Assessment and plan (1) Atrial fibrillation with RVR: Rate controlled now continue current regimen Status: Acute (2) Acute on chronic systolic heart failure: Appear to be compensated rather on skein drier side may can cautiously give IV fluid Status: Acute (3) Atherosclerotic heart disease of [place] coronary artery with other forms of angina pectoris: Stable from a coronary disease perspective, high cardiac markers could be secondary to myocarditis from COVID and decreased clearance of the renal function in the face of A. fib with RVR Status: Acute (4) Hyperlipidemia: Continue statin Status: Acute Qualifiers: Hyperlipidemia type: pure hypercholesterolemia Qualified Code(s): E78.00 - Pure hypercholesterolemia, unspecified (5) Pericarditis: Patient has small to moderate pericardial effusion of no hemodynamic significance less likely to be because of hypotension Status: Acute Qualifiers: Pericarditis type: unspecified type Chronicity: unspecified Qualified Code(s): I31.9 - Disease of pericardium, unspecified (6) Shock: Could be due to sepsis not there is no tamponade physiology for effusion, reduced ejection fraction cardiogenic can be a factor due to reduced LV function. Continue pressure support Status: Acute Additional A&P Information Based on the patient clinical progress and the results of the above, further recommendations will be made. 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
[2021-07-18] VITALS (72 sets, daily range): BP systolic 89–144; BP diastolic 61–94; PULSE 65–158; RESP 17–34; TEMP 36.8–37; O2SAT 81–98
[2021-07-18] MEDS: midodrine 5 mg TABLET 10 MG PO ×4 (00:35→23:06)
[2021-07-18] MEDS: enoxaparin 80 mg/0.8 mL Syringe 70 MG SUBCUT (04:24)
[2021-07-18 05:02] LABS: Basophils % 0.1 %; Hemoglobin 11.5 g/dL (11.7-16.6); Lymphocytes # 0.4 10^3/uL (0.8-4.8); Lymphocytes % 2.7 %; Mean Corpuscular HGB Conc 31.9 g/dL (30.0-36.0); Mean Corpuscular Hemoglobin 31.3 pg (28.0-34.0); Mean Corpuscular Volume 97.8 fl (80-94); Mean Platelet Volume 10.6 fL (7.4-10.4); Monocytes # 0.9 10^3/uL (0.2-0.9); Neutrophils % 90.1 %; Nucleated Red Blood Cells % 0.1 %; Platelet Count 226 10^3/cmm (130-400); Red Blood Count 3.68 10^6/uL (4.1-5.3); Red Cell Distribution Width 14.1 % (12.1-15.1); White Blood Count 15.3 10^3/uL (4.0-10.0)
[2021-07-18 05:27] LABS: Phosphorus 6.9 mg/dL (2.5-4.5)
[2021-07-18] MEDS: remdesivir 100 MG in sodium chloride 0.9% (100 ml) 80 ML IV (05:30)
[2021-07-18] MEDS: budesonide 0.5 mg/2 mL Neb INHALATION (07:49)
[2021-07-18] MEDS: ascorbic acid 500 mg Tablet PO ×2 (07:54→17:42)
[2021-07-18] MEDS: pantoprazole DR 40 mg Tablet PO (07:55)
[2021-07-18] MEDS: clopidogrel 75 mg Tablet PO (07:55)
[2021-07-18] MEDS: cholecalciferol (vitamin D3) 1,000 unit Tablet 2000 UNIT PO (07:56)
[2021-07-18] MEDS: zinc gluconate 50 mg Tablet PO (07:57)
[2021-07-18] MEDS: levothyroxine 50 mcg Tablet PO (07:57)
[2021-07-18] MEDS: dexamethasone 10 mg/mL INJ 6 MG IVP (07:57)
[2021-07-18] MEDS: cefTRIAXone 1,000 MG in sodium chloride 0.9% (plus) 50 ML 100 MG IV (07:59)
[2021-07-18] MEDS: atorvastatin 40 mg Tablet 20 MG PO (08:01)
[2021-07-18 08:12] LABS: Albumin Level 3.2 g/dL (3.5-5.2); Alkaline Phosphatase 148 IU/L (40-130); Anion Gap 26.4 (5-19); Calcium 7.4 mg/dL (8.5-10.5); Carbon Dioxide 12 mmol/L (22-29); Chloride 100 mmol/L (98-107); Globulin 2.5 g/dL (1.3-4.6); Glucose 132 mg/dL (65-115); Osmolality Calculated 304 mOsm/kg (285-295); Potassium 5.4 mmol/L (3.5-5.1); Sodium 133 mmol/L (136-145); Total Bilirubin 2.6 mg/dL (0.15-1.2); Total Protein 5.7 g/dL (6.6-8.7)
[2021-07-18 08:17] LABS: Blood Urea Nitrogen 85 mg/dL (8-23)
[2021-07-18 08:24] LABS: Alanine Aminotransferase 3638 U/L (0-41)
--- NOTE | 2021-07-18 09:41 | P.CONIM_ITS ---
Providers/Reason For Consult Consulting Physician/Specialty*: brad robles md/ telenedphrology Reason for Consult*: KARLA/ hyperkalemia/ met acidosis Attending Physician: Osbaldo Snell MD Primary Care Provider: Roxy Kaye APN History of Present Illness History of Present Illness Jerzy Quezada is a 86 year old male with a past medical history of hypothyroidism, CAD, CHF -25%, hypertension, pericardial effusion, recently discharged from [facility] for chest pain and NSTEMI requiring LAD stenting x2, was also found to have a moderate pericardial effusion which was found to decrease in size on repeat imaging and he was d/c home. He presented again on 07/16/21 w/ weakness, poor appetite, shortness of breath, with orthopnea paroxysmal nocturnal dyspnea,leg edema. In the emergency room he was found to be hypotensive, in A. fib with RVR, was given fluid bolus and lasix. He had a CTA on 07/16/21- - diagnosed w/ a moderate pericardial effusion/ pericarditis and started on colchicine. He has tested + for COVID-19. He has had hypotensive episodes yesterday and required pressers. He was started on remdesivir. steroids, rocephin, azithromycin. his a fib was controlled w/ amiodarone. renal called as cr was 2.1 mg/dl on 07/11. cr improved to 1.3 mg/dl on admission ( 07/16/21), cr has been rising since admission and he is oliguric. 07/17 cr 1.5 and 1.8 ,g/dl. today cr is 2.4 mg/dl. he has a met acidosis and hyperkalemia. Review of Systems General: Reports: 10 or more systems reviewed and unremarkable except in HPI and below Narrative: weak, cp, sob, cough, palps, dec uop Medications/Allergies Home Medications Medication Instructions Recorded Confirmed Last Taken Type aspirin 81 mg tablet,delayed 81 mg PO DAILY #90 tab 05/28/21 07/16/21 07/14/21 Rx release furosemide 20 mg tablet 20 mg PO DAILY #90 tab 05/28/21 07/16/21 07/15/21 Rx levothyroxine 50 mcg capsule 50 mcg PO DAILY 05/28/21 07/16/21 07/16/21 History metoprolol succinate 25 mg 12.5 mg PO DAILY #45 tab 05/28/21 07/16/21 07/15/21 Rx tablet,extended release 24 hr nitroglycerin 0.4 mg sublingual 0.4 mg SUBLINGUAL Q5M PRN #25 tab 05/28/21 07/16/21 Unknown Rx tablet rosuvastatin 10 mg tablet 10 mg PO DAILY #90 tab 05/28/21 07/16/21 07/15/21 Rx clopidogrel 75 mg PO DAILY #90 tab 07/11/21 07/16/21 07/15/21 Rx lisinopril 2.5 mg PO DAILY #30 tab 07/11/21 07/16/21 07/15/21 Rx pantoprazole 40 mg tablet,delayed 40 mg PO DAILY #30 tab 07/12/21 07/16/21 07/15/21 Rx release cyanocobalamin (vitamin B-12) 25 mcg PO DAILY 07/16/21 07/16/21 07/14/21 History [Vitamin B-12] isosorbide mononitrate 15 mg PO DAILY 07/16/21 07/16/21 07/16/21 History omega 5-ahs-fyo-fish oil [Fish Oil] 2 cap PO BID 07/16/21 07/16/21 07/16/21 History Allergies Allergy/AdvReac Type Severity Reaction Status Date / Time No Known Allergies Allergy Verified 05/26/21 08:17 Current Medications Generic Name Dose Route Start Last Admin Trade Name Freq PRN Reason Stop Dose Admin Albuterol/Ipratropium 1 puff 07/17/21 12:00 07/18/21 07:49 Ipratropium-Albuterol 4 Gm Mdi INHALATION 1 puff QID.RESPIRATORY NEETU Administration Amiodarone HCl 400 mg 07/17/21 09:00 07/17/21 14:27 Amiodarone 200 Mg Tablet PO Not Given BID NEETU Ascorbic Acid 500 mg 07/17/21 09:00 07/18/21 07:54 Ascorbic Acid 500 Mg Tablet PO 500 mg BID NEETU Administration Aspirin 81 mg 07/17/21 09:00 07/17/21 08:09 Aspirin 81 Mg Ec Tablet PO 81 mg DAILY NEETU Administration Atorvastatin Calcium 20 mg 07/17/21 09:00 07/18/21 08:01 Atorvastatin 40 Mg Tablet PO 20 mg DAILY NEETU Administration Budesonide 0.5 mg 07/17/21 20:00 07/18/21 07:49 Budesonide 0.5 Mg/2 Ml Neb INHALATION 0.5 mg BID.RESPIRATORY NEETU Administration Clopidogrel Bisulfate 75 mg 07/17/21 09:00 07/18/21 07:55 Clopidogrel 75 Mg Tablet PO 75 mg DAILY NEETU Administration Dexamethasone 6 mg 07/17/21 08:45 07/18/21 07:57 Dexamethasone 10 Mg/Ml Inj IVP 6 mg Q24H NEEUT Administration Enoxaparin Sodium 70 mg 07/17/21 16:00 07/18/21 04:24 Enoxaparin 80 Mg/0.8 Ml Syringe SUBCUT 70 mg Q12H NEETU Administration Norepinephrine Bitartrate 4 mg 254 mls @ 0 mls/hr 07/16/21 23:04 07/18/21 02:21 / Dextrose IV Infused .Q0M NEETU Titration Protocol Per Protocol Amiodarone HCl 900 mg/ 518 mls @ 0 mls/hr 07/16/21 23:04 07/17/21 10:59 Dextrose/ IV Miscellaneous IV 0 mg/min Supplies .Q0M NEETU 0 mls/hr Titration Protocol Per Protocol Remdesivir 100 mg/ Sodium 80 mls @ 100 mls/hr 07/18/21 06:00 07/18/21 05:30 Chloride IV 100 mls/hr Q24H NEETU Administration Ceftriaxone Sodium 1,000 mg/ 50 mls @ 100 mls/hr 07/17/21 08:45 07/18/21 07:59 Sodium Chloride IV 100 mls/hr Q24H NEETU Administration Protocol Azithromycin 500 mg/ Sodium 250 mls @ 250 mls/hr 07/17/21 08:45 07/17/21 12:10 Chloride IV Infused Q24H NEETU Infusion Protocol Levothyroxine Sodium 50 mcg 07/17/21 09:00 07/18/21 07:57 Levothyroxine 50 Mcg Tablet PO 50 mcg DAILY NEETU Administration Metoclopramide HCl 5 mg 07/17/21 12:08 07/17/21 12:24 Metoclopramide 5 Mg/Ml Sdv 2 Ml IVP 5 mg Q6H PRN Administration NAUSEA AND VOMITING Midodrine 10 mg 07/17/21 15:30 07/18/21 07:55 Midodrine 5 Mg Tablet PO 10 mg Q8H NEETU Administration Ondansetron HCl 4 mg 07/16/21 23:04 07/17/21 11:42 Ondansetron 2 Mg/Ml Sdv 2 Ml IVP 4 mg Q8H PRN Administration vomiting, or N/V if npo Pantoprazole Sodium 40 mg 07/17/21 09:00 07/18/21 07:[address] 40 Mg Tablet PO 40 mg DAILY NEETU Administration Vitamin D 2,000 unit 07/17/21 09:00 07/18/21 07:56 Cholecalciferol (Vitamin D3) 1,000 Unit Tablet PO 2,000 unit DAILY NEETU Administration Zinc Gluconate 50 mg 07/17/21 09:00 07/18/21 07:57 Zinc Gluconate 50 Mg Tablet PO 50 mg DAILY NEETU Administration PFSH Acute PFSH: Medical History CAD (coronary artery disease) Essential hypertension History of MD (myocardial infarction) Hyperlipidemia Pericardial effusion Family History Brother Heart failure Brother Heart failure Sister Heart failure Mother Hypertension Heart failure Diabetes Daughter Diabetes Other Cancer Vitals/I&O/Wt Last Vital Signs Temp 98.6 F 07/18/21 04:00 Pulse 81 07/18/21 08:00 Resp 20 H 07/18/21 08:00 BP 130/77 07/18/21 08:00 Pulse Ox 95 07/18/21 08:00 07/17/21 07/18/21 07/18/21 22:59 06:59 14:59 Intake Total 357.094 / 1416.537 292.991 / 1709.528 360 / 360 Output Total 151 / 251 Balance 357.094 / 1316.537 141.991 / 1458.528 360 / 360 Weight last 48 hrs Weight 68.492 kg Weight 63.503 kg Physical Exam Narrative: EXAM NARRATIVE: in bed, NARD, VSS heent- nc/at, eomi, anicteric neck supple lungs diminished heart irreg abd soft, nt, nd ext no edema neuro- a,a, o x 3 A&P Additional A&P Information 86 yr old man recent stents, chronic systolic CHF, pericardial effusion. pt was admitted hypotensive , a fib w/ RVR 1. KARLA- likely ATN- from hypotension- on rainer-i and lasix at home -then recieved iodine CTA on admission- some component of ZUHAIR -recs- u/ a w/o hematuria on admission -check renal us -rx pericardial effusion per cardiology/ medicine -maximize CO- consider ivf - lasix per cardiology/ medicine if volume overloaded -check urine lytes -monitor for HD needs -can have covid- nephropathy- however, usually is ATN 1a. Pericardial effusion and pericarditis per cardiology -limit colchicine w/ KARLA 2. hyperkalemia from KARLA 3. inc AGMA- check lactate- was 3.2 yesterday -check ABG- likely from KARLA and hypotension- maximize CO 4. hyponatremia- check tsh, ur lytes -he is on cortisol 5. inc LFT's- likely shocked liver from hypotension 6. leukocytosis- per medicine 7. COVID-19- avoid remdesivir w/ KARLA and transaminitis 8. chronic systolic CHF and pericardial effusion- monitor for tamponade- BP is improving seen and examined w/ RN -telehealth visit -informed consent for telehealth obtained from pt -discussed w/ Dr. Osbaldo Snell time spent 1 hr Consult Attestations Medical Necessity Statement: multi-organ failure, COVID-19 pna Time Spent in Patient Care: Greater than 35 minutes (>than 50% of time spent in counselling and/or direct pt care on unit) . 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
[2021-07-18] MEDS: amiodarone 200 mg Tablet 400 MG PO ×2 (09:44→17:42)
--- NOTE | 2021-07-18 10:33 | US_ITS ---
WS: [id number] ULTRASOUND RENAL TECHNIQUE: Ultrasound examination of both kidneys. CLINICAL INFORMATION: klever COMPARISON: None. FINDINGS: RIGHT: Right kidney is normal in size and appearance. Echogenicity: Normal. Cortical thickness: 1.2 cm; Normal. Hydronephrosis: None. Perinephric fluid: None. Right kidney measures: 10.3 cm x 4.6 cm x 5.2 cm. LEFT: Left kidney is normal in size and appearance. Echogenicity: Normal. Cortical thickness: 1.1 cm; Normal. Hydronephrosis: None. Perinephric fluid: None. Left kidney measures: 10.1 cm x 4.9 cm x 6.4 cm. Normal visualized aorta. Bladder is decompressed. Small amount of perihepatic ascites. IMPRESSION: 1. Normal renal ultrasound. No renal lesions visualized. 2. No hydronephrosis in either kidney. 3. Bladder is decompressed.
[2021-07-18 11:39] LABS: ABG PCO2 22.2 mmHg (35-45); ABG PH Result 7.31 (7.35-7.45); Alveolar-Arterial Oxygen Gradi 4.1 mmHg (5-10); Blood Gas Allen Test Pos; Blood Gas Sample Type Arterial; Carboxyhemoglobin 0.1 %THgb (0.4-20.1); HCO3 ABG 11.3 mmol/L (22-26); HGB O2 Sat 93.1 % (95-100); Methemoglobin 1.3 % (0.4-1.5); Oxygen Saturation ABG 94.5; PO2 ABG 88.1 mmHg (80.0-100.0); Potassium Level - ABG 5.2 mmol/L (3.5-5.0); Total Hemoglobin 12.4 g/dL (14-18)
[2021-07-18 11:41] LABS: Blood Gas Operator Identificat MONRO; Blood Gas Sample Site Radial, left; Oxygen Device ROOM AIR
[2021-07-18] MEDS: sodium bicarbonate 650 mg Tablet PO ×2 (11:47→17:42)
[2021-07-18] MEDS: insulin regular-human 10 UNIT in SYRINGE 1 EACH IVP (11:47)
[2021-07-18] MEDS: sodium chloride 0.45% 1,000 ML 75 ML IV (11:48)
[2021-07-18] MEDS: sodium polystyrene sulfonate 15 gm/60 mL Btl 30 GM PO (11:48)
[2021-07-18] MEDS: dextrose 50% syringe 50 mL IVP (11:48)
--- NOTE | 2021-07-18 11:51 | PM.PN ---
Subjective Subjective: Interval history: Patient was seen this morning, he tells me that he is feeling better this morning, his nausea is minimal, he has trouble swallowing, he tells me that he has had trouble swallowing since he was a child, he does not have any teeth, and the breakfast that he had this morning it is difficult to break apart the food that he was given, denies any chest pain, no shortness of breath, is on room air, no fevers overnight, he does complain of fatigue and tiredness which persists Vitals/I&O/Wt Last Vital Signs Temp 98.6 F 07/18/21 04:00 Pulse 81 07/18/21 11:36 Resp 18 07/18/21 11:28 BP 130/77 07/18/21 08:00 Pulse Ox 96 07/18/21 11:28 07/17/21 07/18/21 07/18/21 22:59 06:59 14:59 Intake Total 357.094 / 1416.537 292.991 / 1709.528 410 / 410 Output Total 151 / 251 Balance 357.094 / 1316.537 141.991 / 1458.528 410 / 410 Weight last 48 hrs Weight 68.492 kg Weight 63.503 kg Physical Exam Const: COMMON NORMALS: no acute distress ORIENTATION/CONSCIOUSNESS: Yes awake, Yes oriented to person, Yes oriented to place and Yes oriented to time Resp: COMMON NORMALS: normal respiratory effort, No retractions, No use of accessory muscles and clear to auscultation bilaterally AUSCULTATION: clear to auscultation bilaterally Cardio: COMMON NORMALS: regular rate, S1 normal heart sound present and S2 normal heart sound present RATE: regular rate RHYTHM: abnormal rhythm irregularly irregular HEART SOUNDS: S1 normal heart sound present and S2 normal heart sound present GI: COMMON NORMALS: Normal to inspection, nondistended, normoactive bowel sounds present, Soft to palpation and non-tender PALPATION: Yes Soft to palpation Extremity: COMMON NORMALS: no pedal edema Neuro: SENSORIUM/ORIENTATION: Yes oriented to person, Yes oriented to place and Yes oriented to time Data : 07/18/21 04:22 07/18/21 04:22 A&P Assessment and plan (1) Atrial fibrillation with RVR: Shock -As Covid 19 pneumonia, no UTI, no focal pneumonia, no cholelithiasis -Likely multifactorial from A. fib, NSTEMI, CHF -Possible contribution of pericardial effusion -I did discuss with cardiology, reviewed echocardiogram, no significant tamponade physiology -Pressures have significantly improved, off Levophed -Continue midodrine -Started on gentle IV hydration, given EF, closely monitor for fluid overload, worsening of pericardial effusion -Monitor blood pressures, monitor heart rate Metabolic acidosis -IV fluids, amp of bicarb, pressor support Shock liver -Trend LFTs -Gentle IV hydration -Midodrine Acute renal failure -Multifactorial from shock, contrast, CHF, Covid 19? -Maintain MAP more than 75, midodrine -Gentle IV hydration -Nephrology consulted COVID-19 pneumonia -Requiring 2 L -Remdesivir on hold given creatinine clearance -Decadron -Rocephin -Azithromycin -Vitamin C, zinc, vitamin D - incentive spirometer flutter valve -Ipratropium, budesonide -Monitor respiratory status closely atrial fibrillation RVR -No hemodynamic compromise, AAOX3 -given metoprolol -did not convert to NSR -given digoxin heart rate better controlled, still slightly hypotensive -Amiodarone 400 mg twice daily -Start Levophed -Therapeutic Lovenox -Cardiac echocardiogram - LV ejection fraction around 20%. Wall motion normalities as mentioned above. Mildly dilated LV cavity Normal RV size with a slightly diminished ejection fraction Mild biatrial enlargement. Small to moderate pericardial effusion Compared to study from 07/11/2021, pericardial effusion remains the same or slightly worse -will consider cardioversion -cardiology consult -full code NSTEMI -LBBB -S/p ostial LAD and mid LAD stent 1 week -seriral troponin, serial ekg -no chest pain -aspirin, plavix, therapeutic Lovenox, statin CHF -Last EF 25% -has received lasix in the emergency room -Creatinine up to 2.4, hold Lasix for now -following BNP -fluid restriction Moderate pericardial effusion -decreasing in size on discharge - LV ejection fraction around 20%. Wall motion normalities as mentioned above. Mildly dilated LV cavity Normal RV size with a slightly diminished ejection fraction Mild biatrial enlargement. Small to moderate pericardial effusion Compared to study from 07/11/2021, pericardial effusion remains the same or slightly worse -Colchicine on hold, monitor creatinine Pericarditis -Has a pericardial friction rub on exam -Does have chest pain complaints on admission, none currently -Colchicine on hold, on Decadron -Possibly related to COVID-19? - Status: Acute (2) Dyspnea: Status: Acute (3) Generalized weakness: Status: Acute (4) Pericardial effusion: Status: Acute (5) Chest pain: Status: Acute (6) Hyperlipidemia: Status: Acute Qualifiers: Hyperlipidemia type: pure hypercholesterolemia Qualified Code(s): E78.00 - Pure hypercholesterolemia, unspecified (7) CAD (coronary artery disease): Status: Acute Qualifiers: Coronary Disease-Associated Artery/Lesion type: [place] artery [place] vs. transplanted heart: [place] heart Associated angina: without angina Qualified Code(s): I25.10 - Atherosclerotic heart disease of [place] coronary artery without angina pectoris (8) Shock: Status: Acute (9) Pneumonia due to COVID-19 virus: Status: Acute (10) Pericarditis: Status: Acute Qualifiers: Pericarditis type: unspecified type Chronicity: unspecified Qualified Code(s): I31.9 - Disease of pericardium, unspecified (11) Atherosclerotic heart disease of [place] coronary artery with other forms of angina pectoris: Status: Acute (12) Acute on chronic systolic heart failure: Status: Acute (13) Acute renal failure: Status: Acute (14) Metabolic acidosis: Status: Acute (15) Shock liver: Status: Acute Attestations Medical Necessity Statement*: Patient requires hospitalization for shock, A. fib with RVR, acute renal failure, shock liver, Covid 19, NSTEMI, moderate pericardial effusion, critical care time spent over 55 minutes Coding Level of Care Code Acute Surfacer Operator for [facility] Fwd Diagnoses Atrial fibrillation with RVR I48.91 Dyspnea R06.00 Generalized weakness R53.1 Pericardial effusion I31.3 Chest pain R07.9 Hyperlipidemia E78.00 Hyperlipidemia type: pure hypercholesterolemia CAD (coronary artery disease) I25.10 Coronary Disease-Associated Artery/Lesion type: [place] artery [place] vs. transplanted heart: [place] heart Associated angina: without angina Shock R57.9 Pneumonia due to COVID-19 virus U07.1; J12.82 Pericarditis I31.9 Pericarditis type: unspecified type Chronicity: unspecified Atherosclerotic heart disease of [place] coronary artery with other forms of angina pectoris I25.118 Acute on chronic systolic heart failure I50.23 Acute renal failure N17.9 Metabolic acidosis E87.2 Shock liver K72.00
[2021-07-18] MEDS: sodium bicarbonate 8.4% 1 mEq/mL 50mL Syr 50 MEQ IVP (13:21)
[2021-07-18] MEDS: ondansetron 2 mg/ML SDV 2 mL 4 MG IVP (17:43)
[2021-07-18 18:41] LABS: Urine Creatinine 80 mg/dL (39-259)
[2021-07-18 18:58] LABS: Bacteria Urine 1+ /hpf; Bilirubin Urine 1+ (Negative); Blood Urine 2+ (Negative); Glucose Urine UA Norm (Normal); Ketones Urine 1+ (Negative); Leukocyte Esterase Urine Negative (Negative); Nitrate Urine Negative (Negative); Protein Urine 1+ (Negative); RBC Urine 0-4 /hpf (0-2); Squamous Epithelial Cell Urine 0-4 /hpf (0-5); Urine Appearance Hazy (CLEAR); Urine Color Yellow (Yellow); Urobilinogen Urine 4 mg/dL (Negative); pH Urine 5 (5-7)
[2021-07-18 18:59] LABS: Add Urine Culture? No; Amorphous Sediment Urine 1+ /hpf; Coarse Granular Casts Urine 0-4 /lpf; Fine Granular Casts Urine 0-4 /lpf; Urine Random Sodium < 10 mmol/L
[2021-07-18 19:41] LABS: Urine Eosinophil Count 0 (0-0)
[2021-07-18 19:42] LABS: Eosinophil Urine No Eosinophils Seen
--- NOTE | 2021-07-18 19:48 | P.PN_ITS ---
Subjective Subjective: Interval history: Please note that I have not seen the patient personally due to COVID precaution. Vital amaya patient is stable Medications: Reviewed: Yes Vitals/I&O/Wt Last Vital Signs Temp 98.6 F 07/18/21 04:00 Pulse 92 07/18/21 16:34 Resp 17 07/18/21 16:29 BP 113/75 07/18/21 15:30 Pulse Ox 95 07/18/21 16:29 07/18/21 07/18/21 07/18/21 06:59 14:59 22:59 Intake Total 292.991 / 1709.528 610.1 / 610.1 120 / 730.1 Output Total 151 / 251 Balance 141.991 / 1458.528 610.1 / 610.1 120 / 730.1 Weight last 48 hrs Weight 151 lb Physical Exam Narrative: EXAM NARRATIVE: Patient was not examined Data : 07/18/21 04:22 07/18/21 04:22 A&P Assessment and plan (1) Atrial fibrillation with RVR: Rate controlled continue current regimen. Blood pressure stable Status: Acute (2) Acute on chronic systolic heart failure: Compensated. Liver is shocky with high AST. Hopefully will improve once stable blood pressure amaya. Status: Acute (3) Atherosclerotic heart disease of [place] coronary artery with other forms of angina pectoris: Stable. Status: Acute (4) Hyperlipidemia: Continue statin Status: Acute Qualifiers: Hyperlipidemia type: pure hypercholesterolemia Qualified Code(s): E78.00 - Pure hypercholesterolemia, unspecified (5) Pericarditis: Pericardial effusion is moderate and not causing tamponade Status: Acute Qualifiers: Chronicity: unspecified Pericarditis type: unspecified type Qualified Code(s): I31.9 - Disease of pericardium, unspecified (6) Shock: Could be due to sepsis not there is no tamponade physiology for effusion, reduced ejection fraction cardiogenic can be a factor due to reduced LV function. Continue pressure support Status: Acute Additional A&P Information Based on the patient clinical progress and the results of the above, further recommendations will be made. 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
[2021-07-18 20:58] LABS: Albumin Level 3.5 g/dL (3.5-5.2); Alkaline Phosphatase 180 IU/L (40-130); Anion Gap 26.6 (5-19); Calcium 6.9 mg/dL (8.5-10.5); Carbon Dioxide 14 mmol/L (22-29); Chloride 99 mmol/L (98-107); Globulin 2.6 g/dL (1.3-4.6); Glucose 202 mg/dL (65-115); Magnesium 3.3 mg/dL (1.7-2.3); Osmolality Calculated 315 mOsm/kg (285-295); Phosphorus 7.4 mg/dL (2.5-4.5); Potassium 4.6 mmol/L (3.5-5.1); Sodium 135 mmol/L (136-145); Total Bilirubin 2.5 mg/dL (0.15-1.2); Total Protein 6.1 g/dL (6.6-8.7)
[2021-07-18 20:59] LABS: Blood Urea Nitrogen 94 mg/dL (8-23)
[2021-07-18 21:09] LABS: Alanine Aminotransferase 3395 U/L (0-41)
[2021-07-18 21:15] LABS: Aspartate Amino Transferase 5552 U/L (0-40)
[2021-07-19] VITALS (91 sets, daily range): BP systolic 78–189; BP diastolic 33–141; PULSE 63–129; RESP 18–35; TEMP 36.3; O2SAT 85–98
--- NOTE | 2021-07-19 | SCC_ITS ---
Procedure Done: 1. Placement of 12 [place] temporary dialysis catheter in right internal jugular vein 2. Fluoroscopic guidance and interpretation for placement of catheter 3. Ultrasound guidance to access the right internal jugular vein 4.9 seconds of fluoroscopic guidance, for a cumulative dose of 1.15 mGy, was provided to Dr. Wilkins by the radiology department. C-arm images of the chest were saved for the patient's permanent record. [facility] HOSPITALNaveen
[2021-07-19] MEDS: morphine 4 mg/mL SDV 1 mL 2 MG IVP ×3 (00:42→19:24)
[2021-07-19] MEDS: enoxaparin 80 mg/0.8 mL Syringe 70 MG SUBCUT (03:14)
[2021-07-19] MEDS: sodium bicarbonate 650 mg Tablet PO (03:14)
[2021-07-19 03:38] LABS: Basophils % 0.1 %; Hematocrit 36.8 % (42.0-52.0); Hemoglobin 11.5 g/dL (11.7-16.6); Lymphocytes # 0.3 10^3/uL (0.8-4.8); Mean Corpuscular HGB Conc 31.3 g/dL (30.0-36.0); Mean Corpuscular Hemoglobin 31.9 pg (28.0-34.0); Mean Corpuscular Volume 101.9 fl (80-94); Monocytes # 0.7 10^3/uL (0.2-0.9); Monocytes % 4.7 %; Neutrophils # 13.54 10^3/uL (1.8-7.7); Neutrophils % 91.8 %; Nucleated Red Blood Cells # 0.1 /100WBC; Nucleated Red Blood Cells % 0.7 %; Platelet Count 246 10^3/cmm (130-400); Red Blood Count 3.61 10^6/uL (4.1-5.3); Red Cell Distribution Width 14.2 % (12.1-15.1); White Blood Count 14.8 10^3/uL (4.0-10.0)
[2021-07-19 04:09] LABS: C Reactive Protein 124.5 mg/L (0.0-4.9)
[2021-07-19 04:15] LABS: Lactate (Lactic Acid level) 4.4 mmol/L (0.5-2.2); Phosphorus 8.1 mg/dL (2.5-4.5)
[2021-07-19 04:21] LABS: NT Pro B Type Natriuretic Pept 7605 pg/mL (0-450); Procalcitonin 1.26 ng/mL (0-0.5)
[2021-07-19 04:33] LABS: Albumin Level 3.2 g/dL (3.5-5.2); Alkaline Phosphatase 175 IU/L (40-130); Anion Gap 29.6 (5-19); Calcium 6.3 mg/dL (8.5-10.5); Carbon Dioxide 12 mmol/L (22-29); Chloride 96 mmol/L (98-107); Globulin 2.7 g/dL (1.3-4.6); Glucose 170 mg/dL (65-115); Osmolality Calculated 307 mOsm/kg (285-295); Potassium 4.6 mmol/L (3.5-5.1); Sodium 133 mmol/L (136-145); Total Bilirubin 2.4 mg/dL (0.15-1.2); Total Protein 5.9 g/dL (6.6-8.7)
[2021-07-19 04:36] LABS: Blood Urea Nitrogen 89 mg/dL (8-23); Creatine Phosphokinase 1593 U/L (39-308)
[2021-07-19 04:45] LABS: Alanine Aminotransferase 2713 U/L (0-41)
[2021-07-19 04:53] LABS: Aspartate Amino Transferase 4204 U/L (0-40); Ferritin 2928 ng/mL (30-400)
[2021-07-19 05:07] LABS: ABG PH Result 7.32 (7.35-7.45); Arterial Blood Gas Hematocrit 36.8 % (42-52); Base Excess ABG -11.5 mmol/L (-2.0-2.0); Blood Gas Allen Test Pos; Blood Gas Sample Site Radial, right; Blood Gas Sample Type Arterial; Oxygen Device ROOM AIR; PO2 ABG 69.2 mmHg (80.0-100.0)
[2021-07-19] MEDS: midodrine 5 mg TABLET 10 MG PO ×2 (06:11→15:22)
--- NOTE | 2021-07-19 07:00 | XRR_ITS ---
PROCEDURE INFORMATION: Exam: XR Chest Exam date and time: 07/19/2021 7:00 AM Age: 86 years old Clinical indication: Shortness of breath; Additional info: SOB TECHNIQUE: Imaging protocol: XR of the chest. Views: 1 view. COMPARISON: CR XR chest 1V portable [id number] 07/16/2021 4:16 PM FINDINGS: Lungs: There is bibasilar pulmonary opacity consistent with lower lobe atelectasis. Pleural spaces: Bilateral small pleural effusions are present larger on the right side. These have developed since the previous chest x-ray. No pneumothorax. Heart/Mediastinum: The cardiac silhouette is enlarged but unchanged. Bones/joints: Unremarkable. XR/XR chest 1V portable [id number] IMPRESSION: Worsening bibasilar atelectasis and small pleural effusions more prominently on the right side.
[2021-07-19] MEDS: budesonide 0.5 mg/2 mL Neb INHALATION ×2 (08:03→20:48)
[2021-07-19] MEDS: azithromycin 500 MG in sodium chloride 0.9% 250 ML 250 MG IV (08:22)
[2021-07-19] MEDS: dexamethasone 10 mg/mL INJ 6 MG IVP (08:23)
[2021-07-19] MEDS: cefTRIAXone 1,000 MG in sodium chloride 0.9% (plus) 50 ML 100 MG IV (08:23)
[2021-07-19] MEDS: atorvastatin 40 mg Tablet 20 MG PO (08:23)
[2021-07-19] MEDS: ascorbic acid 500 mg Tablet PO (08:23)
[2021-07-19] MEDS: amiodarone 200 mg Tablet 400 MG PO (08:23)
[2021-07-19] MEDS: levothyroxine 50 mcg Tablet PO (08:24)
[2021-07-19] MEDS: pantoprazole DR 40 mg Tablet PO (08:24)
[2021-07-19] MEDS: cholecalciferol (vitamin D3) 1,000 unit Tablet 2000 UNIT PO (08:24)
[2021-07-19] MEDS: clopidogrel 75 mg Tablet PO (08:24)
[2021-07-19] MEDS: zinc gluconate 50 mg Tablet PO (08:24)
[2021-07-19] MEDS: FUROsemide 10 mg/mL SDV 10mL 80 MG IVP (09:36)
[2021-07-19] MEDS: metOLazone 5 MG Tablet 2.5 MG PO (09:37)
[2021-07-19] MEDS: sodium bicarbonate 8.4% 1 mEq/mL 50mL Syr 50 MEQ IVP (09:37)
--- NOTE | 2021-07-19 09:53 | PC.SOCIAL ---
IMM update IMM updated with patient's daughter Jennifer. Verbalized an understanding. Initialled, dated, timed, and placed in chart.
--- NOTE | 2021-07-19 11:12 | P.PN_ITS ---
Subjective Subjective: Interval history: Events of the last 24 hours noted. He did receive a gentle bicarb infusion. Unfortunately, he has increasing shortness of breath, chest x-ray also demonstrates bilateral basal pleural effusions and infiltrates which are marginally worse as well. He is very uncomfortable at this time. Received combination diuretics this morning, has so far not made any urine. No other acute uremic symptoms, no other extremity edema. Hemodynamics reviewed, somewhat fluctuant but generally stable. Vitals/I&O/Wt Last Vital Signs Temp 98.6 F 07/18/21 04:00 Pulse 67 07/19/21 10:30 Resp 26 H 07/19/21 10:30 BP 124/68 07/19/21 10:00 Pulse Ox 90 07/19/21 10:30 07/18/21 07/19/21 07/19/21 22:59 06:59 14:59 Intake Total 343 / 953.1 2128.75 / 3081.85 600 / 600 Output Total 101 / 101 101 / 202 Balance 242 / 852.1 2027.75 / 2879.85 600 / 600 Physical Exam Narrative: EXAM NARRATIVE: Constitutional: Awake, uncomfortable HEENT: Wet mucosa, no jvp, non icteric Lungs: Bilaterally wheeze, rales in all lung zones CVS: S1 S2, no murmurs Abdo: Soft, BS ok Ext 4: Minimal edema, peripheral perfusion with no cyanosis Neurological: Grossly non-focal Data : 07/19/21 03:19 07/19/21 03:19 Micro: Microbiology 07/18/21 23:14 C.difficile Toxin B Gene (PCR) - Final Stool A&P Additional A&P Information 1. Acute kidney injury Likely multifactorial, renal hypoperfusion in the setting of ARPITA inhibitor and diuretics, contrast nephropathy, COVID nephropathy also playing a role. Given that he is now becoming progressively more short of breath from fluid overload with oliguria, persistent metabolic acidosis etc., I agree with provid ing hemodialysis for him today. Diuretics given this morning, unless there is a robust and prompt diuresis, plan for dialysis later on today. 2K, ultrafiltration 2-3 L Daily evaluation for dialysis Dose medication for GFR less than 15 2. Chemistry Anion gap metabolic acidosis likely from uremia as well as lactic acidosis Hypocalcemia even after correction Dialysis will help to correct these later on today. 3. COVID pneumonitis Received combination Decadron, Rocephin, azithromycin, vitamin C, zinc, vitamin D. Remdesivir held due to creatinine clearance. Currently on nasal cannula oxygen, at high risk of further decompensation. Will try to keep him as dry as possible. 4. Hemodynamics Hemodynamics relatively stable at this time. Atrial fibrillation with RVR noted. Underlying ejection fraction of 20%. 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
--- NOTE | 2021-07-19 12:04 | ANES.PREANE2 ---
Pre-Anesthetic Assessment Pre-Anesthetic Assessment: Height/Weight: Height 1.75 m Weight 68.492 kg Temp Pulse Resp BP Pulse Ox 98.6 F 66 20 H 124/68 90 07/18/21 04:00 07/19/21 12:03 07/19/21 12:03 07/19/21 10:00 07/19/21 12:03 Proposed Procedure: Operation Date: 07/19/21 12:00 Proposed Procedures p Dialysis Catheter Insertion(Not Applicable) - Elliott Wilkins MD Pulmonary: Comments: COVID positive CV/HEM: CV/HEM: Afib (w/ RVR), CAD and ID (NSTEMI) Comments: pericarditis /w pericardial effusion - no tamponade physiology stress test 02/23 IMPRESSIONS 1. Abnormal myocardial perfusion imaging with large sized prior infarct noted in the apical, anterior and inferior georges. No evidence of ischemia is seen 2. LV systolic function is severely reduced 2020 ECHO CONCLUSIONS 1-Moderately increased left ventricular cavity size. Moderately decreased left ventricular systolic function. Left ventricular ejection fraction is estimated at 39 %. Grade II/IV diastolic dysfunction, moderately elevated filling pressures. 2-Moderately increased left atrial size. 3-Moderately thickened mitral valve. No mitral valve stenosis. Severe mitral valve regurgitation. 4-Moderate aortic valve calcification. Mild aortic valve stenosis, mean gradient 4.4 mmHg, DC 1.8 cm squared.mild aortic valve regurgitation. 5-There is no pericardial effusion. 6-Right atrial pressure is around 5 mm of mercury. 7-There are no prior echocardiogram studies to compar Hepatic: Comments: shock liver Metabolic: Metabolic: Hyperlipidemia Anesthetic Plan: ASA status: 4 Anesthesia: MAC Risk of > 500 ml blood loss (7ml/kg in children): No Medications/Allergies Current Medications: Current Medications Generic Name Dose Route Start Last Admin Trade Name Freq PRN Reason Stop Dose Admin Albuterol/Ipratrop ium 1 puff 07/17/21 12:00 07/19/21 11:54 Ipratropium-Albu terol 4 Gm Mdi INHALATION 1 puff QID.RESPIRATORY S CH Administration Amiodarone HCl 400 mg 07/17/21 09:00 07/19/21 08:23 Amiodarone 200 M g Tablet PO 400 mg BID NEETU Administration Ascorbic Acid 500 mg 07/17/21 09:00 07/19/21 08:23 Ascorbic Acid 50 0 Mg Tablet PO 500 mg BID NEETU Administration Aspirin 81 mg 07/17/21 09:00 07/17/21 08:09 Aspirin 81 Mg Ec Tablet PO 81 mg DAILY NEETU Administration Atorvastatin Calci um 20 mg 07/17/21 09:00 07/19/21 08:23 Atorvastatin 40 Mg Tablet PO 20 mg DAILY NEETU Administration Budesonide 0.5 mg 07/17/21 20:00 07/19/21 08:03 Budesonide 0.5 M g/2 Ml Neb INHALATION 0.5 mg BID.RESPIRATORY S CH Administration Clopidogrel Bisulf ate 75 mg 07/17/21 09:00 07/19/21 08:24 Clopidogrel 75 M g Tablet PO 75 mg DAILY NEETU Administration Dexamethasone 6 mg 07/17/21 08:45 07/19/21 08:23 Dexamethasone 10 Mg/Ml Inj IVP 6 mg Q24H NEETU Administration Enoxaparin Sodium 70 mg 07/19/21 04:00 07/19/21 03:14 Enoxaparin 80 Mg /0.8 Ml Syringe SUBCUT 70 mg Q24H NEETU Administration Norepinephrine Bit artrate 4 mg 254 mls @ 0 mls/h r 07/16/21 23:04 07/18/21 02:21 / Dextrose IV Infused .Q0M NEETU Titration Protocol Per Protocol Amiodarone HCl 900 mg/ 518 mls @ 0 mls/h r 07/16/21 23:04 07/19/21 07:00 Dextrose/ IV Misce llaneous IV 0.5 mg/min Supplies .Q0M NEETU 17.27 mls/hr Titration Protocol Per Protocol Remdesivir 100 mg/ Sodium 80 mls @ 100 mls/ hr 07/18/21 06:00 07/18/21 13:40 Chloride IV Infused Q24H NEETU Infusion Ceftriaxone Sodium 1,000 mg/ 50 mls @ 100 mls/ hr 07/17/21 08:45 07/19/21 08:55 Sodium Chloride IV Infused Q24H NEETU Infusion Protocol Azithromycin 500 m g/ Sodium 250 mls @ 250 mls /hr 07/17/21 08:45 07/19/21 09:25 Chloride IV Infused Q24H NEETU Infusion Protocol Levothyroxine Sodi um 50 mcg 07/17/21 09:00 07/19/21 08:24 Levothyroxine 50 Mcg Tablet PO 50 mcg DAILY NEETU Administration Metoclopramide HCl 5 mg 07/17/21 12:08 07/17/21 12:24 Metoclopramide 5 Mg/Ml Sdv 2 Ml IVP 5 mg Q6H PRN Administration NAUSEA AND VOMITI NG Midodrine 10 mg 07/17/21 15:30 07/19/21 06:11 Midodrine 5 Mg T ablet PO 10 mg Q8H NEETU Administration Morphine Sulfate 2 mg 07/16/21 23:04 07/19/21 00:42 Morphine 4 Mg/Ml Sdv 1 Ml IVP 2 mg Q4H PRN Administration SEVERE PAIN Ondansetron HCl 4 mg 07/16/21 23:04 07/18/21 17:43 Ondansetron 2 Mg /Ml Sdv 2 Ml IVP 4 mg Q8H PRN Administration vomiting, or N/V if npo Pantoprazole Sodiu m 40 mg 07/17/21 09:00 07/19/21 08:[address] 40 Mg Tablet PO 40 mg DAILY NEETU Administration Vitamin D 2,000 unit 07/17/21 09:00 07/19/21 08:24 Cholecalciferol (Vitamin D3) 1,000 Unit Tablet PO 2,000 unit DAILY NEETU Administration Zinc Gluconate 50 mg 07/17/21 09:00 07/19/21 08:24 Zinc Gluconate 5 0 Mg Tablet PO 50 mg DAILY NEETU Administration PFSH Anesthesia PFSH: Medical History CAD (coronary artery disease) Essential hypertension History of [place] (myocardial infarction) Hyperlipidemia Pericardial effusion Family History Brother Heart failure Brother Heart failure Sister Heart failure Mother Hypertension Heart failure Diabetes Daughter Diabetes Other Cancer Data Anesthesia CBC & Chem 7: 07/19/21 03:19 07/19/21 03:19 Other Labs: Laboratory Results - last 48 hr 07/17/21 07/17/21 07/17/21 13:05 15:15 19:25 WBC RBC Hgb Hct MCV MCH MCHC RDW Plt Count MPV Neut % (Auto) Lymph % (Auto) [place] % (Auto) Eos % (Auto) Baso % (Auto) Neut # (Auto) Lymph # (Auto) [place] # (Auto) Eos # (Auto) Baso # (Auto) Nucleated RBC % (auto) Nucleated RBCs # Specimen Type Sample Site ABG pH ABG pCO2 ABG pO2 ABG HCO3 ABG O2 Saturation ABG Base Excess Kirill Test A-a O2 Gradient Hematocrit Hgb O2 Saturation Carboxyhemoglobin Methemoglobin Total Hemoglobin Ionized Calcium O2 Delivery Device FiO2 Raw Material Planner ID Sodium Potassium Chloride Carbon Dioxide Anion Gap BUN Creatinine GFR Calculation Glucose Calculated Osmolality Lactate Calcium Phosphorus Magnesium Ferritin Total Bilirubin AST ALT Alkaline Phosphatase Creatine Kinase Troponin T Baseline 175 H* Troponin T 120 Minute 182.2 H Delta Troponin T 7.2 Troponin T Hi Sens 6Hr 162.7 H Troponin T Hi Sens 6Hr Delta -12.3 L C-Reactive Protein NT-Pro-B Natriuret Pep Total Protein Albumin Globulin Procalcitonin Urine Color Urine Appearance Urine pH Ur Specific [place] Urine Protein Urine Glucose (UA) Urine Ketones Urine Blood Urine Nitrate Urine Bilirubin Urine Urobilinogen Ur Leukocyte Esterase Urine RBC Urine WBC Ur Eosinophil Smear Ur Squamous Epith Cells Amorphous Sediment Urine Bacteria Hyaline Casts Fine Granular Casts Coarse Granular Casts Urine Eosinophils Ur Random Sodium Urine Creatinine 07/18/21 07/18/21 07/18/21 04:22 04:22 04:22 WBC 15.3 H RBC 3.68 L Hgb 11.5 L Hct 36.0 L MCV 97.8 H MCH 31.3 MCHC 31.9 RDW 14.1 Plt Count 226 MPV 10.6 H Neut % (Auto) 90.1 Lymph % (Auto) 2.7 [place] % (Auto) 6.0 Eos % (Auto) 0.0 Baso % (Auto) 0.1 Neut # (Auto) 13.80 H Lymph # (Auto) 0.4 L [place] # (Auto) 0.9 Eos # (Auto) 0.0 Baso # (Auto) 0.0 Nucleated RBC % (auto) 0.1 Nucleated RBCs # 0.0 Specimen Type Sample Site ABG pH ABG pCO2 ABG pO2 ABG HCO3 ABG O2 Saturation ABG Base Excess Kirill Test A-a O2 Gradient Hematocrit Hgb O2 Saturation Carboxyhemoglobin Methemoglobin Total Hemoglobin Ionized Calcium O2 Delivery Device FiO2 Raw Material Planner ID Sodium 133 L Potassium 5.4 H Chloride 100 Carbon Dioxide 12 L Anion Gap 26.4 H BUN 85 H* Creatinine 2.4 H GFR Calculation Not Reportable Glucose 132 H Calculated Osmolality 304 H Lactate Calcium 7.4 L Phosphorus 6.9 H Magnesium Ferritin Total Bilirubin 2.6 H AST > 8890 H ALT 3638 H Alkaline Phosphatase 148 H Creatine Kinase Troponin T Baseline Troponin T 120 Minute Delta Troponin T Troponin T Hi Sens 6Hr Troponin T Hi Sens 6Hr Delta C-Reactive Protein NT-Pro-B Natriuret Pep Total Protein 5.7 L Albumin 3.2 L Globulin 2.5 Procalcitonin Urine Color Urine Appearance Urine pH Ur Specific [place] Urine Protein Urine Glucose (UA) Urine Ketones Urine Blood Urine Nitrate Urine Bilirubin Urine Urobilinogen Ur Leukocyte Esterase Urine RBC Urine WBC Ur Eosinophil Smear Ur Squamous Epith Cells Amorphous Sediment Urine Bacteria Hyaline Casts Fine Granular Casts Coarse Granular Casts Urine Eosinophils Ur Random Sodium Urine Creatinine 07/18/21 07/18/21 07/18/21 11:39 17:30 17:30 WBC RBC Hgb Hct MCV MCH MCHC RDW Plt Count MPV Neut % (Auto) Lymph % (Auto) [place] % (Auto) Eos % (Auto) Baso % (Auto) Neut # (Auto) Lymph # (Auto) [place] # (Auto) Eos # (Auto) Baso # (Auto) Nucleated RBC % (auto) Nucleated RBCs # Specimen Type Arterial Sample Site Radial, left ABG pH 7.31 L ABG pCO2 22.2 L ABG pO2 88.1 ABG HCO3 11.3 L ABG O2 Saturation 94.5 ABG Base Excess -13.0 L Kirill Test Pos A-a O2 Gradient 4.1 L Hematocrit 38.0 L Hgb O2 Saturation 93.1 L Carboxyhemoglobin 0.1 L Methemoglobin 1.3 Total Hemoglobin 12.4 L Ionized Calcium 1.0 L O2 Delivery Device Room air FiO2 21.0 Raw Material Planner ID [place] Sodium 132.0 Potassium 5.2 H Chloride Carbon Dioxide Anion Gap BUN Creatinine GFR Calculation Glucose 177.0 H Calculated Osmolality Lactate Calcium Phosphorus Magnesium Ferritin Total Bilirubin AST ALT Alkaline Phosphatase Creatine Kinase Troponin T Baseline Troponin T 120 Minute Delta Troponin T Troponin T Hi Sens 6Hr Troponin T Hi Sens 6Hr Delta C-Reactive Protein NT-Pro-B Natriuret Pep Total Protein Albumin Globulin Procalcitonin Urine Color Yellow Urine Appearance Hazy A Urine pH 5 Ur Specific [place] 1.020 Urine Protein 1+ H Urine Glucose (UA) Norm Urine Ketones 1+ H Urine Blood 2+ H Urine Nitrate Negative Urine Bilirubin 1+ H Urine Urobilinogen 4 H Ur Leukocyte Esterase Negative Urine RBC 0-4 H Urine WBC 10-15 H Ur Eosinophil Smear 0 Ur Squamous Epith Cells 0-4 H Amorphous Sediment 1+ Urine Bacteria 1+ H Hyaline Casts 5-10 H Fine Granular Casts 0-4 H Coarse Granular Casts 0-4 H Urine Eosinophils No eosinophils seen Ur Random Sodium < 10 Urine Creatinine 80 07/18/21 07/19/21 07/19/21 20:30 03:19 03:19 WBC 14.8 H RBC 3.61 L Hgb 11.5 L Hct 36.8 L MCV 101.9 H MCH 31.9 MCHC 31.3 RDW 14.2 Plt Count 246 MPV 11.0 H Neut % (Auto) 91.8 Lymph % (Auto) 2.0 [place] % (Auto) 4.7 Eos % (Auto) 0.0 Baso % (Auto) 0.1 Neut # (Auto) 13.54 H Lymph # (Auto) 0.3 L [place] # (Auto) 0.7 Eos # (Auto) 0.0 Baso # (Auto) 0.0 Nucleated RBC % (auto) 0.7 Nucleated RBCs # 0.1 Specimen Type Sample Site ABG pH ABG pCO2 ABG pO2 ABG HCO3 ABG O2 Saturation ABG Base Excess Kirill Test A-a O2 Gradient Hematocrit Hgb O2 Saturation Carboxyhemoglobin Methemoglobin Total Hemoglobin Ionized Calcium O2 Delivery Device FiO2 Raw Material Planner ID Sodium 135 L Potassium 4.6 Chloride 99 Carbon Dioxide 14 L Anion Gap 26.6 H BUN 94 H* Creatinine 2.8 H GFR Calculation Not Reportable Glucose 202 H Calculated Osmolality 315 H Lactate Calcium 6.9 L Phosphorus 7.4 H 8.1 H* Magnesium 3.3 H Ferritin Total Bilirubin 2.5 H AST 5552 H ALT 3395 H Alkaline Phosphatase 180 H Creatine Kinase Troponin T Baseline Troponin T 120 Minute Delta Troponin T Troponin T Hi Sens 6Hr Troponin T Hi Sens 6Hr Delta C-Reactive Protein NT-Pro-B Natriuret Pep Total Protein 6.1 L Albumin 3.5 Globulin 2.6 Procalcitonin Urine Color Urine Appearance Urine pH Ur Specific [place] Urine Protein Urine Glucose (UA) Urine Ketones Urine Blood Urine Nitrate Urine Bilirubin Urine Urobilinogen Ur Leukocyte Esterase Urine RBC Urine WBC Ur Eosinophil Smear Ur Squamous Epith Cells Amorphous Sediment Urine Bacteria Hyaline Casts Fine Granular Casts Coarse Granular Casts Urine Eosinophils Ur Random Sodium Urine Creatinine 01/07/19/21 07/19/21 03:19 03:19 03:19 WBC RBC Hgb Hct MCV MCH MCHC RDW Plt Count MPV Neut % (Auto) Lymph % (Auto) [place] % (Auto) Eos % (Auto) Baso % (Auto) Neut # (Auto) Lymph # (Auto) [place] # (Auto) Eos # (Auto) Baso # (Auto) Nucleated RBC % (auto) Nucleated RBCs # Specimen Type Sample Site ABG pH ABG pCO2 ABG pO2 ABG HCO3 ABG O2 Saturation ABG Base Excess Kirill Test A-a O2 Gradient Hematocrit Hgb O2 Saturation Carboxyhemoglobin Methemoglobin Total Hemoglobin Ionized Calcium O2 Delivery Device FiO2 Raw Material Planner ID Sodium 133 L Potassium 4.6 Chloride 96 L Carbon Dioxide 12 L Anion Gap 29.6 H BUN 89 H* Creatinine 3.0 H GFR Calculation Not Reportable Glucose 170 H Calculated Osmolality 307 H Lactate 4.4 H* Calcium 6.3 L Phosphorus Magnesium 3.0 H Ferritin 2928 H Total Bilirubin 2.4 H AST 4204 H ALT 2713 H Alkaline Phosphatase 175 H Creatine Kinase 1593 H* Troponin T Baseline Troponin T 120 Minute Delta Troponin T Troponin T Hi Sens 6Hr Troponin T Hi Sens 6Hr Delta C-Reactive Protein 124.5 H NT-Pro-B Natriuret Pep 7605 H Total Protein 5.9 L Albumin 3.2 L Globulin 2.7 Procalcitonin 1.26 H Urine Color Urine Appearance Urine pH Ur Specific [place] Urine Protein Urine Glucose (UA) Urine Ketones Urine Blood Urine Nitrate Urine Bilirubin Urine Urobilinogen Ur Leukocyte Esterase Urine RBC Urine WBC Ur Eosinophil Smear Ur Squamous Epith Cells Amorphous Sediment Urine Bacteria Hyaline Casts Fine Granular Casts Coarse Granular Casts Urine Eosinophils Ur Random Sodium Urine Creatinine 07/19/21 04:55 WBC RBC Hgb Hct MCV MCH MCHC RDW Plt Count MPV Neut % (Auto) Lymph % (Auto) [place] % (Auto) Eos % (Auto) Baso % (Auto) Neut # (Auto) Lymph # (Auto) [place] # (Auto) Eos # (Auto) Baso # (Auto) Nucleated RBC % (auto) Nucleated RBCs # Specimen Type Arterial Sample Site Radial, right ABG pH 7.32 L ABG pCO2 25.0 L ABG pO2 69.2 L ABG HCO3 13.0 L ABG O2 Saturation ABG Base Excess -11.5 L Kirill Test Pos A-a O2 Gradient Hematocrit 36.8 L Hgb O2 Saturation Carboxyhemoglobin Methemoglobin Total Hemoglobin Ionized Calcium O2 Delivery Device Room air FiO2 21.0 Raw Material Planner ID Buttr Sodium Potassium Chloride Carbon Dioxide Anion Gap BUN Creatinine GFR Calculation Glucose Calculated Osmolality Lactate Calcium Phosphorus Magnesium Ferritin Total Bilirubin AST ALT Alkaline Phosphatase Creatine Kinase Troponin T Baseline Troponin T 120 Minute Delta Troponin T Troponin T Hi Sens 6Hr Troponin T Hi Sens 6Hr Delta C-Reactive Protein NT-Pro-B Natriuret Pep Total Protein Albumin Globulin Procalcitonin Urine Color Urine Appearance Urine pH Ur Specific [place] Urine Protein Urine Glucose (UA) Urine Ketones Urine Blood Urine Nitrate Urine Bilirubin Urine Urobilinogen Ur Leukocyte Esterase Urine RBC Urine WBC Ur Eosinophil Smear Ur Squamous Epith Cells Amorphous Sediment Urine Bacteria Hyaline Casts Fine Granular Casts Coarse Granular Casts Urine Eosinophils Ur Random Sodium Urine Creatinine Micro: Microbiology 07/18/21 23:14 C.difficile Toxin B Gene (PCR) - Final Stool Cardiac Studies: Echocardiogram Limited Views 07/17/21 Echocardiogram Ultrasound 11/09/19 Sestamibi Stress Test (Cardiology) 02/18/21
--- NOTE | 2021-07-19 14:00 | P.CONIM_ITS ---
Providers/Reason For Consult Consulting Physician/Specialty*: General Surgery Dr. Wilkins Reason for Consult*: Dialysis catheter Attending Physician: Osbaldo Snell MD Primary Care Provider: Roxy Kaye APN History of Present Illness History of Present Illness Jerzy Quezada is a 86 year old male with history of CHF, pericardial effusion who had been recently discharged after non-STEMI status postcardiac cath with stent x2. Patient is noted to have A. fib, hypotensive requiring fluid bolus and Lasix. He is also noted to be COVID-19 positive. Unfortunately during the hospitalization patient has been becoming oliguric and his creatinine is up to 2.8 Review of Systems General: Reports: 10 or more systems reviewed and unremarkable except in HPI and below Medications/Allergies Home Medications Medication Instructions Recorded Confirmed Last Taken Type aspirin 81 mg tablet,delayed 81 mg PO DAILY #90 tab 05/28/21 07/16/21 07/14/21 Rx release furosemide 20 mg tablet 20 mg PO DAILY #90 tab 05/28/21 07/16/21 07/15/21 Rx levothyroxine 50 mcg capsule 50 mcg PO DAILY 05/28/21 07/16/21 07/16/21 History metoprolol succinate 25 mg 12.5 mg PO DAILY #45 tab 05/28/21 07/16/21 07/15/21 Rx tablet,extended release 24 hr nitroglycerin 0.4 mg sublingual 0.4 mg SUBLINGUAL Q5M PRN #25 tab 05/28/21 07/16/21 Unknown Rx tablet rosuvastatin 10 mg tablet 10 mg PO DAILY #90 tab 05/28/21 07/16/21 07/15/21 Rx clopidogrel 75 mg PO DAILY #90 tab 07/11/21 07/16/21 07/15/21 Rx lisinopril 2.5 mg PO DAILY #30 tab 07/11/21 07/16/21 07/15/21 Rx pantoprazole 40 mg tablet,delayed 40 mg PO DAILY #30 tab 07/12/21 07/16/21 07/15/21 Rx release cyanocobalamin (vitamin B-12) 25 mcg PO DAILY 07/16/21 07/16/21 07/14/21 History [Vitamin B-12] isosorbide mononitrate 15 mg PO DAILY 07/16/21 07/16/21 07/16/21 History omega 6-czw-kca-fish oil [Fish Oil] 2 cap PO BID 07/16/21 07/16/21 07/16/21 History Allergies Allergy/AdvReac Type Severity Reaction Status Date / Time No Known Allergies Allergy Verified 05/26/21 08:17 Current Medications Generic Name Dose Route Start Last Admin Trade Name Freq PRN Reason Stop Dose Admin Albuterol/Ipratropium 1 puff 07/17/21 12:00 07/19/21 11:54 Ipratropium-Albuterol 4 Gm Mdi INHALATION 1 puff QID.RESPIRATORY NEETU Administration Amiodarone HCl 400 mg 07/17/21 09:00 07/19/21 08:23 Amiodarone 200 Mg Tablet PO 400 mg BID NEETU Administration Ascorbic Acid 500 mg 07/17/21 09:00 07/19/21 08:23 Ascorbic Acid 500 Mg Tablet PO 500 mg BID NEETU Administration Aspirin 81 mg 07/17/21 09:00 07/17/21 08:09 Aspirin 81 Mg Ec Tablet PO 81 mg DAILY NEETU Administration Atorvastatin Calcium 20 mg 07/17/21 09:00 07/19/21 08:23 Atorvastatin 40 Mg Tablet PO 20 mg DAILY NEETU Administration Budesonide 0.5 mg 07/17/21 20:00 07/19/21 08:03 Budesonide 0.5 Mg/2 Ml Neb INHALATION 0.5 mg BID.RESPIRATORY NEETU Administration Clopidogrel Bisulfate 75 mg 07/17/21 09:00 07/19/21 08:24 Clopidogrel 75 Mg Tablet PO 75 mg DAILY NEETU Administration Dexamethasone 6 mg 07/17/21 08:45 07/19/21 08:23 Dexamethasone 10 Mg/Ml Inj IVP 6 mg Q24H NEETU Administration Enoxaparin Sodium 70 mg 07/19/21 04:00 07/19/21 03:14 Enoxaparin 80 Mg/0.8 Ml Syringe SUBCUT 70 mg Q24H NEETU Administration Norepinephrine Bitartrate 4 mg 254 mls @ 0 mls/hr 07/16/21 23:04 07/18/21 02 :21 / Dextrose IV Infused .Q0M NEETU Titration Protocol Per Protocol Amiodarone HCl 900 mg/ 518 mls @ 0 mls/hr 07/16/21 23:04 07/19/21 07:00 Dextrose/ IV Miscellaneous IV 0.5 mg/min Supplies .Q0M NEETU 17.27 mls/hr Titration Protocol Per Protocol Remdesivir 100 mg/ Sodium 80 mls @ 100 mls/hr 07/18/21 06:00 07/18/21 13:40 Chloride IV Infused Q24H NEETU Infusion Ceftriaxone Sodium 1,000 mg/ 50 mls @ 100 mls/hr 07/17/21 08:45 07/19/21 08:55 Sodium Chloride IV Infused Q24H NEETU Infusion Protocol Azithromycin 500 mg/ Sodium 250 mls @ 250 mls/hr 07/17/21 08:45 07/19/21 09:25 Chloride IV Infused Q24H NEETU Infusion Protocol Levothyroxine Sodium 50 mcg 07/17/21 09:00 07/19/21 08:24 Levothyroxine 50 Mcg Tablet PO 50 mcg DAILY NEETU Administration Metoclopramide HCl 5 mg 07/17/21 12:08 07/17/21 12:24 Metoclopramide 5 Mg/Ml Sdv 2 Ml IVP 5 mg Q6H PRN Administration NAUSEA AND VOMITING Midodrine 10 mg 07/17/21 15:30 07/19/21 06:11 Midodrine 5 Mg Tablet PO 10 mg Q8H NEETU Administration Morphine Sulfate 2 mg 07/16/21 23:04 07/19/21 12:54 Morphine 4 Mg/Ml Sdv 1 Ml IVP 2 mg Q4H PRN Administration SEVERE PAIN Ondansetron HCl 4 mg 07/16/21 23:04 07/18/21 17:43 Ondansetron 2 Mg/Ml Sdv 2 Ml IVP 4 mg Q8H PRN Administration vomiting, or N/V if npo Pantoprazole Sodium 40 mg 07/17/21 09:00 07/19/21 08:[address] 40 Mg Tablet PO 40 mg DAILY NEETU Administration Vitamin D 2,000 unit 07/17/21 09:00 07/19/21 08:24 Cholecalciferol (Vitamin D3) 1,000 Unit Tablet PO 2,000 unit DAILY NEETU Administration Zinc Gluconate 50 mg 07/17/21 09:00 07/19/21 08:24 Zinc Gluconate 50 Mg Tablet PO 50 mg DAILY NEETU Administration PFSH Acute PFSH: Medical History CAD (coronary artery disease) Diabetes mellitus Essential hypertension History of [place] (myocardial infarction) Hyperlipidemia Pericardial effusion Surgical History S/P angioplasty with stent Family History Brother Heart failure Brother Heart failure Sister Heart failure Mother Hypertension Heart failure Diabetes Daughter Diabetes Other Cancer Vitals/I&O/Wt Last Vital Signs Temp 98.6 F 07/18/21 04:00 Pulse 66 07/19/21 12:03 Resp 20 H 07/19/21 12:54 BP 124/68 07/19/21 10:00 Pulse Ox 91 07/19/21 12:54 07/18/21 07/19/21 07/19/21 22:59 06:59 14:59 Intake Total 343 / 3362.119 2128.75 / 3362.119 880.269 / 880.269 Output Total 101 / 202 101 / 202 Balance 242 / 3160.119 2027.75 / 3160.119 880.269 / 880.269 Physical Exam Narrative: EXAM NARRATIVE: HEENT: Normocephalic Eye: Sclera /conjunctiva normal Abdomen: Soft to palpation Neurological: Oriented to place person and time Skin: Intact, no lesions appreciated on gross exam Urinary Catheter Management^: Murry: Cath Placed During This Visit: yes Urinary Catheter Date of Insertion: 07/19/21 Urinary Catheter Time of Insertion: 11:30 Data Micro: Micro: Microbiology 07/18/21 23:14 C.difficile Toxin B Gene (PCR) - Fin al Stool A&P Assessment and plan (1) Acute renal failure: 86-year-old male with history of non-STEMI, CHF, pericardial effusion curr ently on Plavix was now developed acute renal failure and requires central venous access for hemodialysis. Plan for tunneled hemodialysis catheter placement under MAC Procedure, risks, benefits and alternatives have been discussed with the patient who wishes to proceed with surgery. Status: Acute Consult Attestations Medical Necessity Statement: As per attending physician Coding Level of Care Code Acute Water Resources Engineer for Isaias Nance Diagnoses Acute renal failure N17.9
--- NOTE | 2021-07-19 14:15 | SC_ITS ---
WS: [id number] Exam: C-arm FL for CVA [id number] Date/Time of Exam: 07/19/2021 2:15 PM Reason For Exam: SURGICAL PROCEDURE A single AP C-arm image of the upper chest is submitted for evaluation. A vascular line is noted in t he region of the superior vena cava and probably ends in the right atrium. There are linear opaque de nsities superimposing the right chest that may represent surgical gauze. No other significant finding on this limited image
--- NOTE | 2021-07-19 15:47 | PC.NURSE ---
[address] Snell. Reported patient's shortness of breath and wheezing. Orders to stop NaBicarb drip and give IV lasix.
--- NOTE | 2021-07-19 15:49 | PC.NURSE ---
[address] Westfall. Discussed patient's respiratory status. Orders for gibson. Plan for HD cath placement and treatment today.
--- NOTE | 2021-07-19 16:36 | PM.PN ---
Subjective Subjective: Interval history: Patient progressively getting worse with shortness of breath advised with volume overload and not able to urinate and the combination of COVID-pneumonia along with worsening of heart failure Medications: Reviewed: Yes Vitals/I&O/Wt Last Vital Signs Temp 98.6 F 07/18/21 04:00 Pulse 66 07/19/21 15:30 Resp 32 H 07/19/21 15:30 BP 97/54 07/19/21 15:30 Pulse Ox 91 07/19/21 15:30 07/19/21 07/19/21 07/19/21 06:59 14:59 22:59 Intake Total 2128.75 / 3081.85 880.269 / 880.269 Output Total 101 / 202 Balance 2027.75 / 2879.85 880.269 / 880.269 Physical Exam Narrative: EXAM NARRATIVE: Patient was not examined Urinary Catheter Management^: Murry: Cath Placed During This Visit: yes Urinary Catheter Date of Insertion: 07/19/21 Urinary Catheter Time of Insertion: 11:30 Data : 07/19/21 03:19 07/19/21 03:19 Micro: Microbiology 07/18/21 23:14 C.difficile Toxin B Gene (PCR) - Final Stool A&P Assessment and plan (1) Atrial fibrillation with RVR: Controlled with amiodarone had episode of A. fib with RVR Status: Acute (2) Acute on chronic systolic heart failure: Decompensated heart failure not making much urine despite of diuresis with IV Lasix, patient will be undergoing dialysis as per nephrology Status: Acute (3) Atherosclerotic heart disease of [place] coronary artery with other forms of angina pectoris: Stable. Status: Acute (4) Hyperlipidemia: Continue statin Status: Acute Qualifiers: Hyperlipidemia type: pure hypercholesterolemia Qualified Code(s): E78.00 - Pure hypercholesterolemia, unspecified (5) Pericarditis: Pericardial effusion is moderate and not causing tamponade Status: Acute Qualifiers: Pericarditis type: unspecified type Chronicity: unspecified Qualified Code(s): I31.9 - Disease of pericardium, unspecified (6) Shock: Improved. Status: Acute Additional A&P Information Based on the patient clinical progress and the results of the above, further recommendations will be made. Thank for the opportunity to eval this patient and make these recommendations Attestations Medical Necessity Statement*: Require continuation hospital of hospitalization for above defined care. 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
[2021-07-19] MEDS: lidocaine 1% INJ 20 mL INJECTION (17:10)
[2021-07-19 17:26] LABS: Alveolar-Arterial Oxygen Gradi 1.2 mmHg (5-10); Arterial Blood Gas Hematocrit 33.6 % (42-52); Blood Gas Operator Identificat CAK; Blood Gas Sample Type Arterial; Carboxyhemoglobin 0.8 %THgb (0.4-20.1); HGB O2 Sat 93.3 % (95-100); Methemoglobin 1.3 % (0.4-1.5)
--- NOTE | 2021-07-19 17:27 | ANES.PROC ---
Anesthesia Procedures Procedure/Date: 07/19/21 Arterial Line: Time Out Performed: Yes Consent: emergency procedure Size (Gauge): 20 Technique Used: guide wire technique Post-Procedure: dry sterile dressing placed Patient Tolerated Procedure: well and no complications Complications: none Site: left Additional Comments: L radial A-line placed due to inability to obtain BP after multiple attempts, with concomitant poor SPO2 waveforms.
--- NOTE | 2021-07-19 17:28 | P.PN_ITS ---
Subjective Subjective: Interval history: - Patient was seen this morning, he has a mild respiratory distress, nasal flaring, intercostal retractions, diffuse crackles, is on 2 L, complaining of shortness of breath no chest pain, no palpitations -I discussed my concerns for shock liver, shock kidney, now with fluid overload -Unfortunately given his acute renal failure, and if his evidence of fluid overload with crackles on exam, and COVID-19 pneumonia he has not responded to diuresis -I discussed dialysis with patient, discussed the risks and benefits of dialysis catheter placement, dialysis, he voiced understanding, all questions answered, agreed to proceed with dialysis catheter placement, dialysis -I also discussed it with his daughter who agreed with dialysis catheter placement, dialysis Vitals/I&O/Wt Last Vital Signs Temp 98.6 F 07/18/21 04:00 Pulse 66 07/19/21 15:30 Resp 32 H 07/19/21 15:30 BP 97/54 07/19/21 15:30 Pulse Ox 91 07/19/21 15:30 07/19/21 07/19/21 07/19/21 06:59 14:59 22:59 Intake Total 2128.75 / 3081.85 880.269 / 880.269 Output Total 101 / 202 Balance 2027.75 / 2879.85 880.269 / 880.269 Physical Exam Const: COMMON NORMALS: no acute distress and patient oriented x3 HENMT: COMMON NORMALS: normocephalic HEAD & SCALP: normocephalic Resp: EFFORT & INSPECTION: Yes tachypneic and Yes respiratory distress (Mild) AUSCULTATION: crackles Laterality: bilateral Cardio: COMMON NORMALS: regular rate, regular rhythm, S1 normal heart sound present and S2 normal heart sound present RATE: regular rate RHYTHM: regular rhythm HEART SOUNDS: S1 normal heart sound present and S2 normal heart sound present GI: COMMON NORMALS: Normal to inspection, nondistended, normoactive bowel sounds present, Soft to palpation and non-tender PALPATION: Yes Soft to palpation Extremity: COMMON NORMALS: no pedal edema Neuro: COMMON NORMALS: patient oriented x3 Urinary Catheter Management^: Murry: Cath Placed During This Visit: yes Urinary Catheter Date of Insertion: 07/19/21 Urinary Catheter Time of Insertion: 11:30 Data : 07/19/21 03:19 07/19/21 03:19 Micro: Microbiology 07/18/21 23:14 C.difficile Toxin B Gene (PCR) - Final Stool A&P Assessment and plan (1) Atrial fibrillation with RVR: Shock -Has Covid 19 pneumonia, no UTI, no focal pneumonia, no cholelithiasis -Likely multifactorial from A. fib, NSTEMI, CHF -Possible contribution of pericardial effusion -I did discuss with cardiology, reviewed echocardiogram, no significant tamponade physiology -Pressures have significantly improved, off Levophed -Continue midodrine -Started on gentle IV hydration, given EF, closely monitor for fluid overload, worsening of pericardial effusion -Monitor blood pressures, monitor heart rate -Continue Plavix Hold Lovenox for DVT prophylaxis for dialysis catheter placement Respiratory distress -Secondary to fluid overload -Not responding to diuresis given acute renal failure -Proceeding with dialysis catheter placement, dialysis Metabolic acidosis and lactic acidosis -IV fluids stop, amp of bicarb, pressor support Shock liver -Trend LFTs -Gentle IV hydration -Midodrine Acute renal failure -Multifactorial from shock, contrast, CHF, Covid 19? -Maintain MAP more than 75, midodrine -Proceeding with dialysis catheter placement, dialysis -Gentle IV hydration stopped -Nephrology consulted COVID-19 pneumonia -Requiring 2 L -Remdesivir on hold given creatinine clearance -Decadron -Rocephin -Azithromycin -Vitamin C, zinc, vitamin D - incentive spirometer flutter valve -Ipratropium, budesonide -Monitor respiratory status closely atrial fibrillation RVR -No hemodynamic compromise, AAOX3 -given metoprolol -did not convert to NSR -given digoxin heart rate better controlled, still slightly hypotensive -Amiodarone 400 mg twice daily -Start Levophed -Therapeutic Lovenox -Cardiac echocardiogram - LV ejection fraction around 20%. Wall motion normalities as mentioned above. Mildly dilated LV cavity Normal RV size with a slightly diminished ejection fraction Mild biatrial enlargement. Small to moderate pericardial effusion Compared to study from 07/11/2021, pericardial effusion remains the same or slightly worse -will consider cardioversion -cardiology consult -full code NSTEMI -LBBB -S/p ostial LAD and mid LAD stent 1 week -seriral troponin, serial ekg -no chest pain -aspirin, plavix, therapeutic Lovenox, statin CHF -Last EF 25% -has received lasix in the emergency room -Creatinine up to 2.4, hold Lasix for now -following BNP -fluid restriction Moderate pericardial effusion -decreasing in size on discharge - LV ejection fraction around 20%. Wall motion normalities as mentioned above. Mildly dilated LV cavity Normal RV size with a slightly diminished ejection fraction Mild biatrial enlargement. Small to moderate pericardial effusion Compared to study from 07/11/2021, pericardial effusion remains the same or slightly worse -Colchicine on hold, monitor creatinine Pericarditis -Has a pericardial friction rub on exam -Does have chest pain complaints on admission, none currently -Colchicine on hold, on Decadron -Possibly related to COVID-19? - Status: Acute (2) Dyspnea: Status: Acute (3) Generalized weakness: Status: Acute (4) Pericardial effusion: Status: Acute (5) Chest pain: Status: Acute (6) Hyperlipidemia: Status: Acute Qualifiers: Hyperlipidemia type: pure hypercholesterolemia Qualified Code(s): E78.00 - Pure hypercholesterolemia, unspecified (7) CAD (coronary artery disease): Status: Acute Qualifiers: Coronary Disease-Associated Artery/Lesion type: [place] vs. transplanted heart: [place] heart Associated angina: without angina Q ualified Code(s): I25.10 - Atherosclerotic heart disease of [place] coronary artery without angina pectoris (8) Shock: Status: Acute (9) Pneumonia due to COVID-19 virus: Status: Acute (10) Pericarditis: Status: Acute Qualifiers: Pericarditis type: unspecified type Chronicity: unspecified Qualified Code(s): I31.9 - Disease of pericardium, unspecified (11) Atherosclerotic heart disease of [place] coronary artery with other forms of angina pectoris: Status: Acute (12) Acute on chronic systolic heart failure: Status: Acute (13) Acute renal failure: Status: Acute (14) Metabolic acidosis: Status: Acute (15) Shock liver: Status: Acute Attestations Medical Necessity Statement*: Patient requires hospitalization for A. 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 transplanted heart: [place] heart Associated angina: without angina Shock R57.9 Pneumonia due to COVID-19 virus U07.1; J12.82 Pericarditis I31.9 Pericarditis type: unspecified type Chronicity: unspecified Atherosclerotic heart disease of [place] coronary artery with other forms of angina pectoris I25.118 Acute on chronic systolic heart failure I50.23 Acute renal failure N17.9 Metabolic acidosis E87.2 Shock liver K72.00
--- NOTE | 2021-07-19 17:28 | P.OP_ITS ---
Operative Report Date of procedure: July 19, 2021 Pre-op Diagnosis: ARF Post-op diagnosis: same Procedure Done: 1. Placement of 12 [place] temporary dialysis catheter in right internal jugular vein 2. Fluoroscopic guidance and interpretation for placement of catheter 3. Ultrasound guidance to access the right internal jugular vein Pathology: none sent Surgeon: Ellitot Wilkins Anesthesia: Local Condition: critical Disposition: ICU Brief History: This is a 86-year-old male with history of CHF, pericardial effusion, A. fib who has now developed acute renal failure. The initial plan was for placement of tunneled hemodialysis catheter as patient was expected to require dialysis for more than a week. In the OR patient was noted to be hypotensive and hypoxic with oxygen saturation in the 80s. Anesthesiologist was concerned about need for intubation and potential cardiac arrest during intubation. The decision was therefore made to place a temporary dialysis catheter under local anesthesia and forego the placement of tunneled hemodialysis catheter for now. Procedure: The patient's right neck and chest was prepped and draped in a sterile manner. An ultrasound of the right internal jugular vein revealed pa tent veins with no evidence of thrombus. 5 mL of 1% lidocaine was infiltrated at the site of planned entry, an introducer needle was used to access the right internal jugular vein under ultrasound guidance. Guidewire was passed through the introducer needle and the introducer needle was removed. Serial dilators were passed over the guidewire after the skin incision was extended using 11 blade and an Arrow temporary dialysis catheter was passed over the guidewire and the guidewire was removed. Both ports on the catheter withdrew and flushed easily. Fluoroscopic guidance and interpretation was used to confirm the appropriate position of catheter tip. The catheter was sutured to the skin using 2-0 Prolene suture. Sterile dressings were applied. The patient was transferred to ICU in critical condition.
[2021-07-19] MEDS: LORazepam 2 mg/mL INJ 1 mL 0.5 MG IVP (20:45)
--- NOTE | 2021-07-19 21:35 | PC.NURSE ---
Patient is very restless, frequently repositioning the bipap mask while dialysis is running. Arterial pressure alarms keeps going off and dialysis nurse is having to frequently pause treatment, dialysis nurse suspects excessive movement is causing the dialysis catheter to push against a vessel and become occluded. Nurse received an order for Ativan from Dr Sanches. After ativan administration, patient became calm. No further issues for dialysis.
[2021-07-19] MEDS: heparin, porcine 1,000 unit/mL INJ 10 mL 10000 UNIT HE (22:15)
--- NOTE | 2021-07-19 22:45 | PC.NURSE ---
Dialysis completed. only 1,000mL removed out of the goal of 2,500 mL due to initial delays (see other nurse note). Nurse charted dialysis output as other .
[2021-07-20] VITALS (99 sets, daily range): BP systolic 75–127; BP diastolic 50–108; PULSE 84–119; RESP 13–34; TEMP 36.5–37; O2SAT 89–97
--- NOTE | 2021-07-20 04:50 | PC.NURSE ---
Shift SUmmary: Overall, Uneventful shift. Patient received dialysis and had 1000mL fluid removed. Rested in bed throughout shift. Mental status has been variable ranging from unresponsive to alert to self and situation. 5mL of urine produced. remained in AFIB throughout shift.
[2021-07-20 05:40] LABS: ABG PCO2 26.7 mmHg (35-45); ABG PH Result 7.43 (7.35-7.45); Arterial Blood Gas Hematocrit 42.9 % (42-52); Blood Gas Allen Test Pos; Blood Gas Sample Site Not specified; Blood Gas Sample Type Arterial; HCO3 ABG 17.8 mmol/L (22-26); Oxygen Device BIPAP
[2021-07-20 05:58] LABS: Basophils # 0.1 10^3/uL (0.0-0.1); Basophils % 0.3 %; Hematocrit 35.3 % (42.0-52.0); Hemoglobin 11.7 g/dL (11.7-16.6); Lymphocytes # 0.3 10^3/uL (0.8-4.8); Lymphocytes % 1.1 %; Mean Corpuscular HGB Conc 33.1 g/dL (30.0-36.0); Mean Corpuscular Hemoglobin 31.6 pg (28.0-34.0); Mean Corpuscular Volume 95.4 fl (80-94); Mean Platelet Volume 11.4 fL (7.4-10.4); Monocytes # 0.7 10^3/uL (0.2-0.9); Neutrophils # 21.63 10^3/uL (1.8-7.7); Neutrophils % 94.7 %; Nucleated Red Blood Cells # 0.3 /100WBC; Nucleated Red Blood Cells % 1.2 %; Platelet Count 242 10^3/cmm (130-400); Red Cell Distribution Width 14.4 % (12.1-15.1); White Blood Count 22.8 10^3/uL (4.0-10.0)
[2021-07-20 06:11] LABS: INR 4.99 (0.8-1.2)
[2021-07-20 06:28] LABS: Hepatitis B Surface Antigen Non-Reactive (Nonreactive)
[2021-07-20 06:32] LABS: NT Pro B Type Natriuretic Pept 5451 pg/mL (0-450)
[2021-07-20 06:44] LABS: Albumin Level 2.9 g/dL (3.5-5.2); Alkaline Phosphatase 173 IU/L (40-130); Anion Gap 28.1 (5-19); Blood Urea Nitrogen 67 mg/dL (8-23); C Reactive Protein 116.8 mg/L (0.0-4.9); Calcium 6.2 mg/dL (8.5-10.5); Carbon Dioxide 14 mmol/L (22-29); Chloride 96 mmol/L (98-107); Globulin 2.6 g/dL (1.3-4.6); Glucose 133 mg/dL (65-115); Magnesium 2.5 mg/dL (1.7-2.3); Osmolality Calculated 299 mOsm/kg (285-295); Phosphorus 5.9 mg/dL (2.5-4.5); Potassium 4.1 mmol/L (3.5-5.1); Sodium 134 mmol/L (136-145); Total Protein 5.5 g/dL (6.6-8.7)
[2021-07-20 06:58] LABS: Alanine Aminotransferase 1818 U/L (0-41)
--- NOTE | 2021-07-20 07:00 | XRR_ITS ---
PROCEDURE INFORMATION: Exam: XR Chest Exam date and time: 07/20/2021 7:00 AM Age: 86 years old Clinical indication: Shortness of breath; Additional info: SOB TECHNIQUE: Imaging protocol: XR of the chest. Views: 1 view. COMPARISON: CR XR chest 1V portable [id number] 07/19/2021 5:30 AM FINDINGS: Tubes, catheters and devices: Right IJ approach central line is in satisfactory position, with distal tip in the RA. Lungs: There is redistribution and indistinctness of the pulmonary vasculature, in association with haziness of the lungs and small bilateral pleural effusions, which in the setting of cardiomegaly is consistent with pulmonary edema. Pneumonia should be excluded clinically. No pneumothorax. Pleural spaces: See Lungs finding. Heart/Mediastinum: Stable cardiomediastinal silhouette. Bones/joints: Degenerative changes of the spine and shoulder joints noted. XR/XR chest 1V portable [id number] IMPRESSION: Imaging findings of pulmonary edema with small bilateral pleural effusions. Pneumonia should be excluded clinically.
[2021-07-20 07:09] LABS: Aspartate Amino Transferase 2081 U/L (0-40); Creatine Phosphokinase 1380 U/L (39-308); Lactate (Lactic Acid level) 4.2 mmol/L (0.5-2.2)
[2021-07-20] MEDS: budesonide 0.5 mg/2 mL Neb INHALATION ×2 (07:35→20:25)
[2021-07-20] MEDS: cholecalciferol (vitamin D3) 1,000 unit Tablet 2000 UNIT PO (08:30)
[2021-07-20] MEDS: midodrine 5 mg TABLET 10 MG PO (08:30)
[2021-07-20] MEDS: amiodarone 200 mg Tablet 400 MG PO (08:30)
[2021-07-20] MEDS: dexamethasone 10 mg/mL INJ 6 MG IVP (08:30)
[2021-07-20] MEDS: atorvastatin 40 mg Tablet 20 MG PO (08:30)
[2021-07-20] MEDS: ascorbic acid 500 mg Tablet PO (08:31)
[2021-07-20] MEDS: pantoprazole DR 40 mg Tablet PO (08:31)
[2021-07-20] MEDS: levothyroxine 50 mcg Tablet PO (08:31)
[2021-07-20] MEDS: zinc gluconate 50 mg Tablet PO (08:31)
[2021-07-20] MEDS: clopidogrel 75 mg Tablet PO (08:31)
[2021-07-20] MEDS: piperacillin-tazobactam 3.375 GM in sodium chloride 0.9% (plus) 50 ML IV ×2 (09:39→22:43)
[2021-07-20] MEDS: morphine 4 mg/mL SDV 1 mL 2 MG IVP (09:39)
[2021-07-20] MEDS: vancomycin 1,000 MG in sodium chloride 0.9% 250 ML 250 MG IV (09:39)
--- NOTE | 2021-07-20 12:26 | P.PN_ITS ---
Subjective Subjective: Interval history: Patient received dialysis yesterday, continues to be on Levophed but did not require intubation Vitals/I&O/Wt Last Vital Signs Temp 98 F 07/20/21 04:30 Pulse 91 07/20/21 11:25 Resp 20 H 07/20/21 11:25 BP 106/60 07/20/21 04:30 Pulse Ox 95 07/20/21 11:25 07/19/21 07/20/21 07/20/21 22:59 06:59 14:59 Intake Total 418.617 / 1701.499 402.613 / 1701.499 Output Total 1000 / 1005 5 / 1005 Balance -581.383 / 696.499 397.613 / 696.499 Physical Exam Narrative: EXAM NARRATIVE: Right neck: Temporary dialysis catheter in place, no cellulitis or hematoma Urinary Catheter Management^: Murry: Cath Placed During This Visit: yes Reason for Continuing Indwelling Catheter: Accurate Measurement of Urinary Outp ut in Critically Ill Patients Urinary Catheter Date of Insertion: 07/19/21 Urinary Catheter Time of Insertion: 11:30 Data : 07/20/21 05:25 07/20/21 05:25 Micro: Microbiology 07/20/21 11:22 Blood Culture - Preliminary Blood SPECIMEN COLLECTED 07/20/21 11:15 Blood Culture - Preliminary Blood SPECIMEN COLLECTED 07/18/21 23:14 C.difficile Toxin B Gene (PCR) - Final Stool A&P Assessment and plan (1) Acute renal failure: Status post placement of temporary dialysis catheter, no evidence of cellulitis or hematoma and the catheter functioned well during dialysis yesterday. Patient is due to receive dialysis today Status: Acute Attestations Medical Necessity Statement*: As per primary Procedures Arterial Line Size (Gauge): 20 Coding Level of Care Code Acute Launch Operator for [facility] Fwd Diagnoses Acute renal failure N17.9
--- NOTE | 2021-07-20 13:33 | P.PN_ITS ---
Subjective Subjective: Interval history: Patient was seen this morning, currently on 5 L, alert to person, to place, not to time, normotensive on Levophed, he tells me that he is breathing a lot easier, continues to have a poor appetite, no nausea, no vomiting has not had a bowel movement Vitals/I&O/Wt Last Vital Signs Temp 97.7 F 07/20/21 13:00 Pulse 88 07/20/21 13:00 Resp 21 H 07/20/21 13:00 BP 100/64 07/20/21 13:00 Pulse Ox 91 07/20/21 13:00 07/19/21 07/20/21 07/20/21 22:59 06:59 14:59 Intake Total 418.617 / 1298.886 402.613 / 1701.499 0 / 0 Output Total 1000 / 1000 5 / 1005 Balance -581.383 / 298.886 397.613 / 696.499 0 / 0 Physical Exam Const: GENERAL APPEARANCE: ill appearing and frail appearing ORIENTATION/CONSCIOUSNESS: Yes awake, Yes oriented to person, Yes oriented to place and Yes oriented to time OTHER: Right dialysis catheter in place Resp: COMMON NORMALS: normal respiratory effort, No retractions and No use of accessory muscles AUSCULTATION: wheezes Cardio: COMMON NORMALS: regular rate, regular rhythm, S1 normal heart sound present and S2 normal heart sound present RATE: regular rate RHYTHM: regular rhythm HEART SOUNDS: S1 normal heart sound present and S2 normal heart sound present GI: COMMON NORMALS: Normal to inspection, nondistended, normoactive bowel sounds present, Soft to palpation and non-tender PALPATION: Yes Soft to palpation Extremity: COMMON NORMALS: no pedal edema Neuro: SENSORIUM/ORIENTATION: Yes oriented to person, Yes oriented to place and Yes oriented to time Urinary Catheter Management^: Murry: Cath Placed During This Visit: yes Reason for Continuing Indwelling Catheter: Accurate Measurement of Urinary Output in Critically Ill Patients Urinary Catheter Date of Insertion: 07/19/21 Urinary Catheter Time of Insertion: 11:30 Data : 07/20/21 05:25 07/20/21 05:25 Micro: Microbiology 07/20/21 11:22 Blood Culture - Preliminary Blood SPECIMEN COLLECTED 07/20/21 11:15 Blood Culture - Preliminary Blood SPECIMEN COLLECTED 07/18/21 23:14 C.difficile Toxin B Gene (PCR) - Final Stool A&P Assessment and plan (1) Atrial fibrillation with RVR: Shock -Has Covid 19 pneumonia, no UTI, no focal pneumonia, no cholelithiasis -Likely multifactorial from A. fib, NSTEMI, CHF, metabolic acidosis, possible sepsis? Possible COVID-19? -Possible contribution of pericardial effusion -I did discuss with cardiology, reviewed echocardiogram, no significant tamponade physiology -On Levophed currently, maintain MAP greater than 75 -Continue midodrine -Fluids on hold -Monitor blood pressures, monitor heart rate -Continue Plavix -Follow blood cultures, urine cultures, sputum cultures -Started on broad-spectrum antibiotic therapy, vancomycin, Zosyn -Remdesivir on hold given shock liver, shock kidney -Hold Lovenox for DVT prophylaxis for dialysis catheter placement Respiratory distress -Secondary to fluid overload, improving this morning, respiratory status has improved on 5 L -Not responding to diuresis given acute renal failure -Dialysis Metabolic acidosis and lactic acidosis -IV fluids stop, amp of bicarb, pressor support -Dialysis Shock liver -Trend LFTs -Gentle IV hydration -Midodrine Elevated INR secondary to shock liver -We will give 1 unit FFP, decrease risk of bleeding during dialysis due to d ialysis catheter placement hold Lovenox Acute renal failure -Multifactorial from shock, contrast, CHF, Covid 19? -Maintain MAP more than 75, midodrine -Proceeding with dialysis catheter placement, dialysis -Gentle IV hydration stopped -Nephrology consulted COVID-19 pneumonia -Requiring 2 L -Remdesivir on hold given creatinine clearance -Decadron -Rocephin -Azithromycin -Vitamin C, zinc, vitamin D - incentive spirometer flutter valve -Ipratropium, budesonide -Monitor respiratory status closely atrial fibrillation RVR -No hemodynamic compromise, AAOX3 -given metoprolol -did not convert to NSR -given digoxin heart rate better controlled, still slightly hypotensive -Amiodarone 400 mg twice daily -Start Levophed -Therapeutic Lovenox on hold -Cardiac echocardiogram - LV ejection fraction around 20%. Wall motion normalities as mentioned above. Mildly dilated LV cavity Normal RV size with a slightly diminished ejection fraction Mild biatrial enlargement. Small to moderate pericardial effusion Compared to study from 07/11/2021, pericardial effusion remains the same or slightly worse -cardiology consult -full code NSTEMI -LBBB -S/p ostial LAD and mid LAD stent 1 week -seriral troponin, serial ekg -no chest pain -aspirin, plavix, therapeutic Lovenox, statin CHF -Last EF 25% -Currently in acute renal failure -following BNP -fluid restriction -Consider CRRT Moderate pericardial effusion -decreasing in size on discharge - LV ejection fraction around 20%. Wall motion normalities as mentioned above. Mildly dilated LV cavity Normal RV size with a slightly diminished ejection fraction Mild biatrial enlargement. Small to moderate pericardial effusion Compared to study from 07/11/2021, pericardial effusion remains the same or slightly worse -Colchicine on hold, monitor creatinine Pericarditis -Has a pericardial friction rub on exam -Does have chest pain complaints on admission, none currently -Colchicine on hold, on Decadron -Possibly related to COVID-19? Protein calorie malnutrition, deconditioning, continue to monitor encourage oral intake, Ensure - Status: Acute (2) Dyspnea: Status: Acute (3) Generalized weakness: Status: Acute (4) Pericardial effusion: Status: Acute (5) Chest pain: Status: Acute (6) Hyperlipidemia: Status: Acute Qualifiers: Hyperlipidemia type: pure hypercholesterolemia Qualified Code(s): E78.00 - Pure hypercholesterolemia, unspecified (7) CAD (coronary artery disease): Status: Acute Qualifiers: Coronary Disease-Associated Artery/Lesion type: [place] artery [place] vs. transplanted heart: [place] heart Associated angina: without angina Qualified Code(s): I25.10 - Atherosclerotic heart disease of [place] coronary artery without angina pectoris (8) Shock: Status: Acute (9) Pneumonia due to COVID-19 virus: Status: Acute (10) Pericarditis: Status: Acute Qualifiers: Pericarditis type: unspecified type Chronicity: unspecified Qualified Code(s): I31.9 - Disease of pericardium, unspecified (11) Atherosclerotic heart disease of [place] coronary artery with other forms of angina pectoris: Status: Acute (12) Acute on chronic systolic heart failure: Status: Acute (13) Acute renal failure: Status: Acute (14) Metabolic acidosis: Status: Acute (15) Shock liver: Status: Acute Attestations Medical Necessity Statement*: Patient requires hospitalization for shock, acute renal failure, shock liver, respiratory failure, acute renal failure, COVID-19, critical care time spent over 55 minutes Procedures Arterial Line Size (Gauge): 20 Coding Level of Care Code Acute Chief Diversity Officer for [facility] Fwd Diagnoses Atrial fibrillation with RVR I48.91 Dyspnea R06.00 Generalized weakness R53.1 Pericardial effusion I31.3 Chest pain R07.9 Hyperlipidemia E78.00 Hyperlipidemia type: pure hypercholesterolemia CAD (coronary artery disease) I25.10 Coronary Disease-Associated Artery/Lesion type: [place] artery [place] vs. transplanted heart: [place] heart Associated angina: without angina Shock R57.9 Pneumonia due to COVID-19 virus U07.1; J12.82 Pericarditis I31.9 Pericarditis type: unspecified type Chronicity: unspecified Atherosclerotic heart disease of [place] coronary artery with other forms of angina pectoris I25.118 Acute on chronic systolic heart failure I50.23 Acute renal failure N17.9 Metabolic acidosis E87.2 Shock liver K72.00
--- NOTE | 2021-07-20 14:14 | P.PN_ITS ---
Subjective Subjective: Interval history: Status post dialysis yesterday scheduled to do another one. Blood pressure on the lower side, oxygen requirement stable Medications: Reviewed: Yes Vitals/I&O/Wt Last Vital Signs Temp 97.7 F 07/20/21 13:30 Pulse 91 07/20/21 13:30 Resp 20 H 07/20/21 13:30 BP 94/62 07/20/21 13:30 Pulse Ox 90 07/20/21 13:30 07/19/21 07/20/21 07/20/21 22:59 06:59 14:59 Intake Total 418.617 / 1298.886 402.613 / 1701.499 300 / 300 Output Total 1000 / 1000 5 / 1005 Balance -581.383 / 298.886 397.613 / 696.499 300 / 300 Physical Exam Narrative: EXAM NARRATIVE: Patient was not examined Urinary Catheter Management^: Murry: Cath Placed During This Visit: yes Reason for Continuing Indwelling Catheter: Accurate Measurement of Urinary Output in Critically Ill Patients Urinary Catheter Date of Insertion: 07/19/21 Urinary Catheter Time of Insertion: 11:30 Data : 07/20/21 05:25 07/20/21 05:25 Micro: Microbiology 07/20/21 11:22 Blood Culture - Preliminary Blood SPECIMEN COLLECTED 07/20/21 11:15 Blood Culture - Preliminary Blood SPECIMEN COLLECTED A&P Assessment and plan (1) Atrial fibrillation with RVR: Rate controlled continue current regimen Status: Acute (2) Acute on chronic systolic heart failure: Status post dialysis has improved volume overload status continue to monitor he is going to dialysis today as well Status: Acute (3) Atherosclerotic heart disease of [place] coronary artery with other forms of angina pectoris: Stable. Continue clopidogrel which is vital for her since he has recent stents, continue Plavix continue clopidogrel Status: Acute (4) Hyperlipidemia: Continue statin Status: Acute Qualifiers: Hyperlipidemia type: pure hypercholesterolemia Qualified Code(s): E78.00 - Pure hypercholesterolemia, unspecified (5) Pericarditis: Schedule for dialysis hopefully it will also help in Status: Acute Qualifiers: Pericarditis type: unspecified type Chronicity: unspecified Qualified Code(s): I31.9 - Disease of pericardium, unspecified (6) Shock: Improved if required can use pressors. Status: Acute Additional A&P Information Based on the patient clinical progress and the results of the above, further recommendations will be made. Thank for the opportunity to eval this patient and make these recommendations Attestations Medical Necessity Statement*: Patient require continuation hospitalization for above defined care. 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
[2021-07-20] MEDS: norepinephrine 8 MG in dextrose 5 % 500 ML 45.72 MG IV (14:19)
[2021-07-20 15:18] LABS: ANCA Screen NEGATIVE (NEGATIVE)
[2021-07-20] MEDS: heparin, porcine 1,000 unit/mL INJ 10 mL HE (15:57)
--- NOTE | 2021-07-20 17:03 | PM.PN ---
Subjective Subjective: Interval history: I am seeing him in follow up for his renal failure. Got dialysis yesterday night. Currently on low dose levophed Medications: Reviewed: Yes Vitals/I&O/Wt Last Vital Signs Temp 97.7 F 07/20/21 13:45 Pulse 107 H 07/20/21 16:15 Resp 15 07/20/21 16:15 BP 91/74 07/20/21 16:15 Pulse Ox 94 07/20/21 16:15 07/20/21 07/20/21 07/20/21 06:59 14:59 22:59 Intake Total 402.613 / 1701.499 807.421 / 807.421 62.865 / 870.286 Output Total 5 / 1005 Balance 397.613 / 696.499 807.421 / 807.421 62.865 / 870.286 Physical Exam Narrative: EXAM NARRATIVE: Full exam could not be done as telesteth did not connect Const: COMMON NORMALS: no acute distress Extremity: GENERAL: Yes edema Skin: COMMON NORMALS: no rashes or lesions noted GENERAL SKIN EXAM: no rashes or lesions noted Urinary Catheter Management^: Murry: Cath Placed During This Visit: yes Reason for Continuing Indwelling Catheter: Accurate Measurement of Urinary Output in Critically Ill Patients Urinary Catheter Date of Insertion: 07/19/21 Urinary Catheter Time of Insertion: 11:30 Data : 07/20/21 05:25 07/20/21 05:25 Micro: Microbiology 07/20/21 11:22 Blood Culture - Preliminary Blood SPECIMEN COLLECTED 07/20/21 11:15 Blood Culture - Preliminary Blood SPECIMEN COLLECTED A&P Assessment and plan (1) Acute renal failure: Will do HD today for 3 hrs with 3k bath, will try to remove 2 lit of fluid if tolerated Status: Acute (2) Metabolic acidosis: Will correct with dialysis Status: Acute (3) Hypotension: Monitor BP closely especially during dialysis Status: Acute Attestations Medical Necessity Statement*: Renal failure Procedures Arterial Line Size (Gauge): 20 Coding Level of Care Code Acute Truck Manager for [facility] Fwd Diagnoses Acute renal failure N17.9 Metabolic acidosis E87.2 Hypotension I95.9
--- NOTE | 2021-07-20 18:43 | PC.NURSE ---
[address] Snell. Reviewed I&O. Orders to hold diuretics. [address] Snell. Reported that patient is lethargic and unable to swallow pills. Orders for BiPAP Q HS.
[2021-07-21] VITALS (79 sets, daily range): BP systolic 72–132; BP diastolic 44–82; PULSE 0–122; RESP 16–37; TEMP 36.3–36.7; O2SAT 84–100
[2021-07-21] MEDS: norepinephrine 8 MG in dextrose 5 % 500 ML 45.72 MG IV (03:03)
[2021-07-21 03:21] LABS: Basophils # 0.1 10^3/uL (0.0-0.1); Basophils % 0.3 %; Hematocrit 33.7 % (42.0-52.0); Hemoglobin 11.1 g/dL (11.7-16.6); Lymphocytes # 0.2 10^3/uL (0.8-4.8); Lymphocytes % 1.2 %; Mean Corpuscular HGB Conc 32.9 g/dL (30.0-36.0); Mean Corpuscular Hemoglobin 31.2 pg (28.0-34.0); Mean Corpuscular Volume 94.7 fl (80-94); Mean Platelet Volume 10.9 fL (7.4-10.4); Monocytes # 0.7 10^3/uL (0.2-0.9); Monocytes % 3.8 %; Neutrophils # 17.49 10^3/uL (1.8-7.7); Neutrophils % 93.7 %; Nucleated Red Blood Cells # 0.3 /100WBC; Nucleated Red Blood Cells % 1.6 %; Platelet Count 201 10^3/cmm (130-400); Red Blood Count 3.56 10^6/uL (4.1-5.3); Red Cell Distribution Width 14.6 % (12.1-15.1); White Blood Count 18.7 10^3/uL (4.0-10.0)
[2021-07-21 03:32] LABS: INR 3.36 (0.8-1.2)
[2021-07-21 03:42] LABS: Lactate (Lactic Acid level) 2.6 mmol/L (0.5-2.2)
[2021-07-21 03:55] LABS: NT Pro B Type Natriuretic Pept 7412 pg/mL (0-450); Procalcitonin 5.14 ng/mL (0-0.5)
[2021-07-21 04:06] LABS: ABG PCO2 27.5 mmHg (35-45); ABG PH Result 7.46 (7.35-7.45); Arterial Blood Gas Hematocrit 32.9 % (42-52); Blood Gas Allen Test Pos; Blood Gas Sample Site Radial, left; Blood Gas Sample Type Arterial; HCO3 ABG 19.7 mmol/L (22-26); Oxygen Device NC; PO2 ABG 78.9 mmHg (80.0-100.0)
[2021-07-21 04:08] LABS: Alkaline Phosphatase 180 IU/L (40-130); Anion Gap 22.4 (5-19); Blood Urea Nitrogen 59 mg/dL (8-23); C Reactive Protein 192.3 mg/L (0.0-4.9); Calcium 6.6 mg/dL (8.5-10.5); Carbon Dioxide 20 mmol/L (22-29); Chloride 95 mmol/L (98-107); Globulin 2.3 g/dL (1.3-4.6); Glucose 154 mg/dL (65-115); Magnesium 2.5 mg/dL (1.7-2.3); Osmolality Calculated 296 mOsm/kg (285-295); Phosphorus 4.9 mg/dL (2.5-4.5); Potassium 4.4 mmol/L (3.5-5.1); Sodium 133 mmol/L (136-145); Total Bilirubin 4.3 mg/dL (0.15-1.2); Total Protein 5.3 g/dL (6.6-8.7)
[2021-07-21 04:20] LABS: Alanine Aminotransferase 1107 U/L (0-41)
[2021-07-21 04:23] LABS: Aspartate Amino Transferase 1191 U/L (0-40)
[2021-07-21 04:26] LABS: Creatine Phosphokinase 1222 U/L (39-308)
[2021-07-21 05:01] LABS: Oxygen Device RA
--- NOTE | 2021-07-21 05:24 | PC.NURSE ---
Shift Note Frequent safety and comfort rounds continue. Orders and/or nursing care completed as indicated. Patient monitored for response to intervention and treatment(s). Education provided includes medications and arterial line. Patient is alert and oriented x4 and remains on 3LNC. Murry catheter drained 30 mls of urine overnight. Patient had no complaints of pain overnight. Scab noted to the right groin, open to air. Will continue to monitor.
--- NOTE | 2021-07-21 07:00 | XRR_ITS ---
PROCEDURE INFORMATION: Exam: XR Chest Exam date and time: 07/21/2021 7:00 AM Age: 86 years old Clinical indication: Dyspnea; Additional info: SOB TECHNIQUE: Imaging protocol: XR of the chest. Views: 1 view. Total images: 1 COMPARISON: CR (CHEST, ) 07/20/2021 5:30 AM FINDINGS: Tubes, catheters and devices: Hemodialysis catheter again noted and unchanged in position. Lungs: Pulmonary vascular congestion. Slight interval worsening of bilateral pleuroparenchymal disease. Pleural spaces: No pneumothorax. Heart/Mediastinum: Cardiomegaly. Bones/joints: Osseous structures are unchanged from the prior exam. XR/XR chest 1V portable [id number] IMPRESSION: 1. Cardiomegaly with pulmonary vascular congestion. 2. Slight interval worsening of bilateral pleuroparenchymal disease.
[2021-07-21] MEDS: dexamethasone 10 mg/mL INJ 6 MG IVP (07:51)
[2021-07-21] MEDS: budesonide 0.5 mg/2 mL Neb INHALATION ×2 (08:31→20:20)
[2021-07-21] MEDS: benzocaine 20% 7 gm 1 APPLIC MUCOUS MEM (09:19)
[2021-07-21] MEDS: clopidogrel 75 mg Tablet PO (09:27)
[2021-07-21] MEDS: atorvastatin 40 mg Tablet 20 MG PO (09:28)
[2021-07-21] MEDS: levothyroxine 50 mcg Tablet PO (09:28)
[2021-07-21] MEDS: aspirin 81 mg EC Tablet PO (09:28)
[2021-07-21] MEDS: amiodarone 200 mg Tablet 400 MG PO ×2 (09:29→18:05)
[2021-07-21] MEDS: midodrine 5 mg TABLET 10 MG PO ×3 (09:29→18:05)
[2021-07-21] MEDS: pantoprazole DR 40 mg Tablet PO (09:30)
[2021-07-21] MEDS: zinc gluconate 50 mg Tablet PO (09:30)
[2021-07-21] MEDS: piperacillin-tazobactam 3.375 GM in sodium chloride 0.9% (plus) 50 ML IV ×2 (09:30→21:42)
[2021-07-21] MEDS: cholecalciferol (vitamin D3) 1,000 unit Tablet 2000 UNIT PO (09:30)
[2021-07-21] MEDS: ascorbic acid 500 mg Tablet PO ×2 (09:30→18:05)
--- NOTE | 2021-07-21 10:18 | PC.NURSE ---
Visitors Dr. Snell allowed a one time visitor. Family to decide which daughter will visit patient.
--- NOTE | 2021-07-21 11:07 | PM.PN ---
Subjective Subjective: Interval history: This morning patient was seen, he does not have an appetite he tells me this morning, complains of an oral lesion in his mouth, he is a bit more withdrawn, remains on pressors, Levophed at 12, had dialysis yesterday, Vitals/I&O/Wt Last Vital Signs Temp 98.1 F 07/21/21 04:00 Pulse 96 07/21/21 11:05 Resp 18 07/21/21 11:01 BP 112/57 07/21/21 08:30 Pulse Ox 91 07/21/21 11:01 07/20/21 07/21/21 07/21/21 22:59 06:59 14:59 Intake Total 522.377 / 1429.798 446.202 / 1876.000 334.518 / 334.518 Output Total 2315 / 2315 30 / 2345 Balance -1792.623 / -885.202 416.202 / -469.000 334.518 / 334.518 Weight last 48 hrs Weight 76.4 kg Physical Exam Const: COMMON NORMALS: no acute distress GENERAL APPEARANCE: cooperative, comfortable and frail appearing ORIENTATION/CONSCIOUSNESS: Yes awake, Yes oriented to person and Yes oriented to place; not oriented to time OTHER: Right dialysis catheter in place Resp: COMMON NORMALS: normal respiratory effort, No retractions, No use of accessory muscles and clear to auscultation bilaterally EFFORT & INSPECTION: Yes tachypneic and Yes respiratory distress (Mild) AUSCULTATION: clear to auscultation bilaterally, crackles Laterality: bilateral and wheezes Cardio: COMMON NORMALS: regular rate, regular rhythm, S1 normal heart sound present, S2 normal heart sound present, No gallops present (Cardio) and No clicks present (Cardio) RATE: regular rate and tachycardic RHYTHM: regular rhythm and abnormal rhythm irregularly irregular HEART SOUNDS: S1 normal heart sound present and S2 normal heart sound present GI: COMMON NORMALS: Normal to inspection, nondistended, normoactive bowel sounds present, Soft to palpation, non-tender and No hepatosplenomegaly present PALPATION: Yes Soft to palpation and Yes No hepatosplenomegaly present Extremity: COMMON NORMALS: normal to inspection, full ROM and no pedal edema Neuro: SENSORIUM/ORIENTATION: Yes oriented to person, Yes oriented to place and No oriented to time Urinary Catheter Management^: Murry: Cath Placed During This Visit: yes Reason for Continuing Indwelling Catheter: Accurate Measurement of Urinary Output in Critically Ill Patients Urinary Catheter Date of Insertion: 07/19/21 Urinary Catheter Time of Insertion: 11:30 Data : 07/21/21 02:55 07/21/21 02:55 Micro: Microbiology 07/20/21 11:22 Blood Culture - Preliminary Blood SPECIMEN COLLECTED 07/20/21 11:15 Blood Culture - Preliminary Blood SPECIMEN COLLECTED A&P Assessment and plan (1) Atrial fibrillation with RVR: Shock -Has Covid 19 pneumonia, no UTI, no focal pneumonia, no cholelithiasis -Likely multifactorial from A. fib, NSTEMI, CHF, metabolic acidosis, possible sepsis? Possible COVID-19? -Possible contribution of pericardial effusion -I did discuss with cardiology, reviewed echocardiogram, no significant tamponade physiology -On Levophed currently, maintain MAP greater than 75 -Continue midodrine -Fluids on hold -Monitor blood pressures, monitor heart rate -Continue Plavix -Follow blood cultures, urine cultures, sputum cultures -Started on broad-spectrum antibiotic therapy, vancomycin, Zosyn -Remdesivir on hold given shock liver, shock kidney -Hold Lovenox for DVT prophylaxis given elevated INR Respiratory distress -Secondary to fluid overload, improving this morning, respiratory status has improved on 5 L -Not responding to diuresis given acute renal failure -Dialysis Metabolic acidosis and lactic acidosis -IV fluids stop, amp of bicarb, pressor support -Dialysis Shock liver -Trend LFTs -Pressor support -Midodrine Elevated INR secondary to shock liver -Status post 1 unit FFP, INR 2.36, monitor Acute renal failure -Multifactorial from shock, contrast, CHF, Covid 19? -Maintain MAP more than 75, midodrine -Proceeding with dialysis catheter placement, dialysis -Gentle IV hydration stopped -Nephrology consulted COVID-19 pneumonia -Requiring 2 L -Remdesivir on hold given creatinine clearance -Decadron -Rocephin -Azithromycin -Vitamin C, zinc, vitamin D - incentive spirometer flutter valve -Ipratropium, budesonide -Monitor respiratory status closely atrial fibrillation RVR -No hemodynamic compromise, AAOX3 -given metoprolol -did not convert to NSR -given digoxin heart rate better controlled, still slightly hypotensive -Amiodarone 400 mg twice daily -Start Levophed -Therapeutic Lovenox on hold -Cardiac echocardiogram - LV ejection fraction around 20%. Wall motion normalities as mentioned above. Mildly dilated LV cavity Normal RV size with a slightly diminished ejection fraction Mild biatrial enlargement. Small to moderate pericardial effusion Compared to study from 07/11/2021, pericardial effusion remains the same or slightly worse -cardiology consult -full code NSTEMI -LBBB -S/p ostial LAD and mid LAD stent 1 week -seriral troponin, serial ekg -no chest pain -aspirin, plavix, therapeutic Lovenox, statin CHF -Last EF 25% -Currently in acute renal failure -following BNP -fluid restriction -Consider CRRT Moderate pericardial effusion -decreasing in size on discharge - LV ejection fraction around 20%. Wall motion normalities as mentioned above. Mildly dilated LV cavity Normal RV size with a slightly diminished ejection fraction Mild biatrial enlargement. Small to moderate pericardial effusion Compared to study from 07/11/2021, pericardial effusion remains the same or slightly worse -Colchicine on hold, monitor creatinine Pericarditis -Has a pericardial friction rub on exam -Does have chest pain complaints on admission, none currently -Colchicine on hold, on Decadron -Possibly related to COVID-19? Protein calorie malnutrition, deconditioning, continue to monitor encourage oral intake, Ensure - Status: Acute (2) Dyspnea: Status: Acute (3) Generalized weakness: Status: Acute (4) Pericardial effusion: Status: Acute (5) Chest pain: Status: Acute (6) Hyperlipidemia: Status: Acute Qualifiers: Hyperlipidemia type: pure hypercholesterolemia Qualified Code(s): E78.00 - Pure hypercholesterolemia, unspecified (7) CAD (coronary artery disease): Status: Acute Qualifiers: Coronary Disease-Associated Artery/Lesion type: [place] artery [place] vs. transplanted heart: [place] heart Associated angina: without angina Qualified Code(s): I25.10 - Atherosclerotic heart disease of [place] coronary artery without angina pectoris (8) Shock: Status: Acute (9) Pneumonia due to COVID-19 virus: Status: Acute (10) Pericarditis: Status: Acute Qualifiers: Pericarditis type: unspecified type Chronicity: unspecified Qualified Code(s): I31.9 - Disease of pericardium, unspecified (11) Atherosclerotic heart disease of [place] coronary artery with other forms of angina pectoris: Status: Acute (12) Acute on chronic systolic heart failure: Status: Acute (13) Acute renal failure: Status: Acute (14) Metabolic acidosis: Status: Acute (15) Shock liver: Status: Acute Attestations Medical Necessity Statement*: Patient requires hospitalization for shock, acute renal failure, shock liver, metabolic acidosis, acute renal failure from COVID-19, atrial fibrillation, NSTEMI, CHF, critical care time spent over 35 minutes Procedures Arterial Line Size (Gauge): 20 Coding Level of Care Code Acute Integrated Program Teacher for [facility] Fwd Diagnoses Atrial fibrillation with RVR I48.91 Dyspnea R06.00 Generalized weakness R53.1 Pericardial effusion I31.3 Chest pain R07.9 Hyperlipidemia E78.00 Hyperlipidemia type: pure hypercholesterolemia CAD (coronary artery disease) I25.10 Coronary Disease-Associated Artery/Lesion type: [place] artery [place] vs. transplanted heart: [place] heart Associated angina: without angina Shock R57.9 Pneumonia due to COVID-19 virus U07.1; J12.82 Pericarditis I31.9 Pericarditis type: unspecified type Chronicity: unspecified Atherosclerotic heart disease of [place] coronary artery with other forms of angina pectoris I25.118 Acute on chronic systolic heart failure I50.23 Acute renal failure N17.9 Metabolic acidosis E87.2 Shock liver K72.00
--- NOTE | 2021-07-21 12:11 | PC.SOCIAL ---
IMM Updated Updated pt's daughter on IMM. No questions voiced. Provided pt a copy. Initialed, dated, & timed copy in chart.
--- NOTE | 2021-07-21 15:21 | PM.PN ---
Subjective Subjective: Interval history: Heart rate and blood pressure is stable Medications: Reviewed: Yes Vitals/I&O/Wt Last Vital Signs Temp 98.1 F 07/21/21 04:00 Pulse 96 07/21/21 11:05 Resp 18 07/21/21 11:01 BP 112/57 07/21/21 08:30 Pulse Ox 91 07/21/21 11:01 07/21/21 07/21/21 07/21/21 06:59 14:59 22:59 Intake Total 446.202 / 1876.000 464.518 / 464.518 Output Total 2344 Balance 416.202 / -469.000 464.518 / 464.518 Weight last 48 hrs Weight 168 lb 6.931 oz Physical Exam Narrative: EXAM NARRATIVE: Patient was not examined Urinary Catheter Management^: Murry: Cath Placed During This Visit: yes Reason for Continuing Indwelling Catheter: Accurate Measurement of Urinary Output in Critically Ill Patients Urinary Catheter Date of Insertion: 07/19/21 Urinary Catheter Time of Insertion: 11:30 Data : 07/21/21 02:55 07/21/21 02:55 Micro: Microbiology 07/20/21 11:22 Blood Culture - Preliminary Blood NEGATIVE TO DATE 07/20/21 11:15 Blood Culture - Preliminary Blood NEGATIVE TO DATE A&P Assessment and plan (1) Atrial fibrillation with RVR: Heart rate is under control continue current drug Status: Acute (2) Acute on chronic systolic heart failure: Patient is on dialysis has improved Status: Acute (3) Atherosclerotic heart disease of [place] coronary artery with other forms of angina pectoris: Continue Plavix since patient has recent stents. Status: Acute (4) Hyperlipidemia: Continue statin Status: Acute Qualifiers: Hyperlipidemia type: pure hypercholesterolemia Qualified Code(s): E78.00 - Pure hypercholesterolemia, unspecified (5) Pericarditis: Continue dialysis which will also improve the pericardial effusion Status: Acute Qualifiers: Pericarditis type: unspecified type Chronicity: unspecified Qualified Code(s): I31.9 - Disease of pericardium, unspecified (6) Shock: Improved on pressors. Status: Acute Additional A&P Information Based on the patient clinical progress and the results of the above, further recommendations will be made. Thank for the opportunity to eval this patient and make these recommendations Attestations Medical Necessity Statement*: Patient require continuation hospitalization for above defined Procedures Arterial Line Size (Gauge): 20 Coding Level of Care Code Established Pt Acute Clinic Clerk for Chg Fwd Patient Type Established History Detailed Exam Detailed Medical Decision Making Moderate Complexity Diagnoses Atrial fibrillation with RVR I48.91 Acute on chronic systolic heart failure I50.23 Atherosclerotic heart disease of [place] coronary artery with other forms of angina pectoris I25.118 Hyperlipidemia E78.00 Hyperlipidemia type: pure hypercholesterolemia Pericarditis I31.9 Pericarditis type: unspecified type Chronicity: unspecified Shock R57.9
--- NOTE | 2021-07-21 16:28 | PM.PN ---
Subjective Subjective: Interval history: I am seeing him in follow up for his renal failure. Got dialysis yesterday, tolerated it well. No new issues overnight. No chest pain Medications: Reviewed: Yes Vitals/I&O/Wt Last Vital Signs Temp 98.1 F 07/21/21 04:00 Pulse 92 07/21/21 16:07 Resp 17 07/21/21 16:07 BP 108/44 07/21/21 16:00 Pulse Ox 94 07/21/21 16:07 07/21/21 07/21/21 07/21/21 06:59 14:59 22:59 Intake Total 446.202 / 1876.000 464.518 / 464.518 Output Total / 2344 Balance 416.202 / -469.000 464.518 / 464.518 Weight last 48 hrs Weight 76.4 kg Physical Exam Const: COMMON NORMALS: no acute distress GENERAL APPEARANCE: cooperative ORIENTATION/CONSCIOUSNESS: Yes awake Resp: AUSCULTATION: crackles Cardio: COMMON NORMALS: S1 normal heart sound present and S2 normal heart sound present HEART SOUNDS: S1 normal heart sound present and S2 normal heart sound present GI: AUSCULTATION: Yes normoactive bowel sounds Extremity: GENERAL: Yes edema Skin: COMMON NORMALS: no rashes or lesions noted GENERAL SKIN EXAM: no rashes or lesions noted Urinary Catheter Management^: Murry: Cath Placed During This Visit: yes Reason for Continuing Indwelling Catheter: Accurate Measurement of Urinary Output in Critically Ill Patients Urinary Catheter Date of Insertion: 07/19/21 Urinary Catheter Time of Insertion: 11:30 Data : 07/21/21 02:55 07/21/21 02:55 Micro: Microbiology 07/20/21 11:22 Blood Culture - Preliminary Blood NEGATIVE TO DATE 07/20/21 11:15 Blood Culture - Preliminary Blood NEGATIVE TO DATE A&P Assessment and plan (1) Acute renal failure: Got hemodialysis on thursday and thursday. No indication for dialysis today. Avoid new nephrotoxins. Will monitor kidney function closely for dialysis requirements Status: Acute (2) Hypotension: Titrate levophed to keep map above 60 Status: Acute (3) Metabolic acidosis: Improved with dialysis Status: Acute (4) Anemia: Follow hb Status: Acute (5) Hyponatremia: Will monitor Status: Acute Attestations Medical Necessity Statement*: KARLA Procedures Arterial Line Size (Gauge): 20 Coding Level of Care Code Acute Degreasing Solution Mixer for Chg Fwd Diagnoses Acute renal failure N17.9 Hypotension I95.9 Metabolic acidosis E87.2 Anemia D64.9 Hyponatremia E87.1
[2021-07-21] MEDS: vancomycin 1,000 MG in sodium chloride 0.9% 250 ML 250 MG IV (20:42)
[2021-07-21] MEDS: norepinephrine 8 MG in dextrose 5 % 500 ML 30.48 MG IV (20:42)
[2021-07-21] MEDS: morphine 4 mg/mL SDV 1 mL 1 MG IVP (21:48)
[2021-07-22] VITALS (72 sets, daily range): BP systolic 67–125; BP diastolic 45–95; PULSE 79–146; RESP 13–31; TEMP 36.8–36.9; O2SAT 85–99
[2021-07-22] MEDS: midodrine 5 mg TABLET 10 MG PO ×2 (02:32→09:43)
--- NOTE | 2021-07-22 02:50 | XRR_ITS ---
PROCEDURE INFORMATION: Exam: XR Chest Exam date and time: 07/22/2021 2:50 AM Age: 86 years old Clinical indication: Device placement; Other: Hd cath; Additional info: Pulled right subclavin hd cath TECHNIQUE: Imaging protocol: XR of the chest. Views: 1 view. COMPARISON: CR (CHEST, ) 07/21/2021 3:42 AM FINDINGS: Tubes, catheters and devices: Right-sided dialysis catheter tip is at the level of the 1st rib. Lungs: There is enlargement of the pulmonary vascularity. There is thickening of the interstitial markings. Pleural spaces: Small bilateral pleural effusions. Heart/Mediastinum: The heart is mildly enlarged. Bones/joints: Unremarkable. XR/XR chest 1V portable [id number] IMPRESSION: 1. Congestive heart failure. 2. Right-sided dialysis catheter tip is at the level of the 1st rib. 3. Small bilateral pleural effusions.
--- NOTE | 2021-07-22 03:00 | PC.NURSE ---
Dialysis Catheter During bedside rounding, this nurse noticed dialysis catheter dressing was pulled off neck and catheter had been pulled out. Dr. Sanches notified, stat chest x-ray obtained. Patient stated he pulled out catheter because, the radio told me to take it off and it said I am free .
[2021-07-22 03:40] LABS: ABG PCO2 29.6 mmHg (35-45); ABG PH Result 7.46 (7.35-7.45); Arterial Blood Gas Hematocrit 33.3 % (42-52); Base Excess ABG -2.3 mmol/L (-2.0-2.0); Blood Gas Allen Test Pos; Blood Gas Sample Site Radial, left; Blood Gas Sample Type Arterial; HCO3 ABG 20.8 mmol/L (22-26); Oxygen Device NC
[2021-07-22 04:56] LABS: Basophils % 0.2 %; Hematocrit 31.4 % (42.0-52.0); Hemoglobin 10.4 g/dL (11.7-16.6); Lymphocytes # 0.2 10^3/uL (0.8-4.8); Lymphocytes % 1.3 %; Mean Corpuscular HGB Conc 33.1 g/dL (30.0-36.0); Mean Corpuscular Volume 93.5 fl (80-94); Mean Platelet Volume 11.5 fL (7.4-10.4); Monocytes # 0.7 10^3/uL (0.2-0.9); Monocytes % 5.5 %; Neutrophils # 12.45 10^3/uL (1.8-7.7); Neutrophils % 91.7 %; Nucleated Red Blood Cells # 0.2 /100WBC; Nucleated Red Blood Cells % 1.2 %; Platelet Count 150 10^3/cmm (130-400); Red Blood Count 3.36 10^6/uL (4.1-5.3); Red Cell Distribution Width 14.6 % (12.1-15.1); White Blood Count 13.6 10^3/uL (4.0-10.0)
[2021-07-22 05:18] LABS: INR 2.54 (0.8-1.2)
[2021-07-22 05:27] LABS: NT Pro B Type Natriuretic Pept 12913 pg/mL (0-450)
--- NOTE | 2021-07-22 05:37 | PC.NURSE ---
Shift Note Frequent safety and comfort rounds continue. Orders and/or nursing care completed as indicated. Patient monitored for response to intervention and treatment(s). Education provided includes dialysis catheter. Patient needs reinforcement teaching. Patient had an eventful shift, please see previous note. He remains alert and oriented but has episodes of confusion, frequently reoriented patient to equipment and surroundings throughout shift. Bruising is noted to right groin, no other wounds or skin issues noted at this time. Murry catheter drained 240 mls of urine overnight. Levophed is infusing per protocol, please see MAR for infusion rate. Will continue to monitor.
[2021-07-22 05:41] LABS: Alanine Aminotransferase 504 U/L (0-41); Albumin Level 2.5 g/dL (3.5-5.2); Alkaline Phosphatase 152 IU/L (40-130); Anion Gap 24.4 (5-19); Aspartate Amino Transferase 532 U/L (0-40); Blood Urea Nitrogen 80 mg/dL (8-23); C Reactive Protein 198.8 mg/L (0.0-4.9); Calcium 6.3 mg/dL (8.5-10.5); Carbon Dioxide 17 mmol/L (22-29); Chloride 93 mmol/L (98-107); Globulin 2.9 g/dL (1.3-4.6); Glucose 165 mg/dL (65-115); Magnesium 2.6 mg/dL (1.7-2.3); Osmolality Calculated 298 mOsm/kg (285-295); Phosphorus 5.2 mg/dL (2.5-4.5); Potassium 4.4 mmol/L (3.5-5.1); Sodium 130 mmol/L (136-145); Total Bilirubin 5.4 mg/dL (0.15-1.2); Total Protein 5.4 g/dL (6.6-8.7)
[2021-07-22 05:56] LABS: Creatine Phosphokinase 1544 U/L (39-308); Creatinine Clr Calc Pharmacy 16.6948
--- NOTE | 2021-07-22 07:05 | PC.HD ---
Pt unstable when he returned from HD cath insertion. Bipap on, SBP 70s and awaiting Levophed drip to be available. Levophed hung by ROLL COATING MACHINE OPERATOR at appx 1915, SBP/MAP within required range and tx intiated @1928, Levophed @14mcg/min. Unable to reach fluid removal goal d/t NS given during tx and pt SBP/MAP not tolerating fluid removal with Levophed maxed at 20mcg/min. Resps unlabored with bipap and lungs coarse but without crackles post treatment.
--- NOTE | 2021-07-22 08:26 | P.PN_ITS ---
Subjective Subjective: Interval history: Patient pulled his dialysis catheter earlier this morning Vitals/I&O/Wt Last Vital Signs Temp 98.2 F 07/22/21 04:00 Pulse 116 H 07/22/21 06:00 Resp 23 H 07/22/21 04:30 BP 109/77 07/22/21 04:30 Pulse Ox 85 L 07/22/21 02:30 07/21/21 07/22/21 07/22/21 22:59 06:59 14:59 Intake Total 483.482 / 1048.000 100 / 1048.000 Output Total 200 / 440 240 / 440 Balance 283.482 / 608.000 -140 / 608.000 Weight last 48 hrs Weight 168 lb 6.931 oz Physical Exam Narrative: EXAM NARRATIVE: Right neck: patient has been bleeding, no signi ficant hematoma Urinary Catheter Management^: Murry: Cath Placed During This Visit: yes Reason for Continuing Indwelling Catheter: Accurate Measurement of Urinary Output in Critically Ill Patients Urinary Catheter Date of Insertion: 07/19/21 Urinary Catheter Time of Insertion: 11:30 Data : 07/22/21 04:25 07/22/21 04:25 Micro: Microbiology 07/20/21 11:22 Blood Culture - Preliminary Blood NEGATIVE TO DATE 07/20/21 11:15 Blood Culture - Preliminary Blood NEGATIVE TO DATE A&P Assessment and plan (1) S/P dialysis catheter insertion: 86-year-old male with multiple comorbidities who pulled his dialysis catheter earlier today. Patient is not sure whether he wants the dialysis april ter put back in. Await nephrology and hospitalist evaluation for potential placement of a new dialysis catheter Status: Acute Attestations Medical Necessity Statement*: As per primary Procedures Arterial Line Size (Gauge): 20 Coding Level of Care Code Acute Manager Research Development for Chg Fwd Diagnoses S/P dialysis catheter insertion Z95.828; Z99.2
[2021-07-22] MEDS: budesonide 0.5 mg/2 mL Neb INHALATION ×2 (08:41→20:05)
[2021-07-22] MEDS: aspirin 81 mg EC Tablet PO (09:14)
[2021-07-22] MEDS: cholecalciferol (vitamin D3) 1,000 unit Tablet 2000 UNIT PO (09:14)
[2021-07-22] MEDS: ascorbic acid 500 mg Tablet PO ×2 (09:14→18:42)
[2021-07-22] MEDS: zinc gluconate 50 mg Tablet PO (09:14)
[2021-07-22] MEDS: amiodarone 200 mg Tablet 400 MG PO ×2 (09:15→18:42)
[2021-07-22] MEDS: atorvastatin 40 mg Tablet 20 MG PO (09:15)
[2021-07-22] MEDS: dexamethasone 10 mg/mL INJ 6 MG IVP (09:15)
[2021-07-22] MEDS: clopidogrel 75 mg Tablet PO (09:15)
[2021-07-22] MEDS: levothyroxine 50 mcg Tablet PO (09:16)
[2021-07-22] MEDS: pantoprazole DR 40 mg Tablet PO (09:16)
[2021-07-22] MEDS: piperacillin-tazobactam 3.375 GM in sodium chloride 0.9% (plus) 50 ML IV (09:17)
--- NOTE | 2021-07-22 11:51 | PM.PN ---
Subjective Subjective: Interval history: pulled dialysis castheter out overnight. is weak, in a fib, no n/v/f/c/reeves/d Medications: Reviewed: Yes Medication Review Details: Current Medications Acetaminophen (Acetaminophen 325 Mg Tablet) 650 mg PO Q6H PRN PRN Reason: Mild/Mod Pain Or Temp >/= 101 Albuterol/Ipratropium (Ipratropium-Albuterol 4 Gm Mdi) 1 puff INHALATION QID.RESPIRATORY [facility] Last Admin: 07/22/21 08:41 Dose: 1 puff Documented by: Amiodarone HCl (Amiodarone 200 Mg Tablet) 400 mg PO BID [facility] Last Admin: 07/22/21 09:15 Dose: 400 mg Documented by: Ascorbic Acid (Ascorbic Acid 500 Mg Tablet) 500 mg PO BID [facility] Last Admin: 07/22/21 09:14 Dose: 500 mg Documented by: Aspirin (Aspirin 81 Mg Ec Tablet) 81 mg PO DAILY [facility] Last Admin: 07/22/21 09:14 Dose: 81 mg Documented by: Atorvastatin Calcium (Atorvastatin 40 Mg Tablet) 20 mg PO DAILY [facility] Last Admin: 07/22/21 09:15 Dose: 20 mg Documented by: Benzocaine (Benzocaine 20% 7 Gm) 1 applic MUCOUS MEM PRN PRN PRN Reason: PAIN Last Admin: 07/21/21 09:19 Dose: 1 applic Documented by: Budesonide (Budesonide 0.5 Mg/2 Ml Neb) 0.5 mg INHALATION BID.RESPIRATORY [facility] Last Admin: 07/22/21 08:41 Dose: 0.5 mg Documented by: Clopidogrel Bisulfate (Clopidogrel 75 Mg Tablet) 75 mg PO DAILY [facility] Last Admin: 07/22/21 09:15 Dose: 75 mg Documented by: Lidocaine HCl 30 ml/Diphenhydramine HCl 75 mg/ Al Hydrox/Mg Hydrox/Simethicone 30 ml 0 ml MUCOUS MEM Q4H PRN PRN Reason: MOUTH PAIN Last Admin: 07/21/21 12:38 Dose: 30 ml Documented by: Dexamethasone (Dexamethasone 10 Mg/Ml Inj) 6 mg IVP Q24H [facility] Last Admin: 07/22/21 09:15 Dose: 6 mg Documented by: Diltiazem HCl (Diltiazem 30 Mg Tablet) 30 mg PO QID [facility] Enoxaparin Sodium (Enoxaparin 80 Mg/0.8 Ml Syringe) 70 mg SUBCUT Q24H [facility] Last Admin: 07/19/21 03:14 Dose: 70 mg Documented by: Heparin Sodium (Porcine) (Heparin, Porcine 1,000 Unit/Ml Inj 10 Ml) 10,000 unit HE PRN PRN PRN Reason: VTE PROPHYLAXIS Last Admin: 07/19/21 22:15 Dose: 10,000 unit Documented by: Norepinephrine Bitartrate 4 mg (/ Dextrose) 254 mls @ 0 mls/hr IV .Q0M [facility]; Protocol Last Titration: 07/20/21 15:00 Dose: Infused Documented by: Remdesivir 100 mg/ Sodium (Chloride) 80 mls @ 100 mls/hr IV Q24H [facility] Last Infusion: 07/18/21 13:40 Dose: Infused Documented by: Norepinephrine Bitartrate 8 mg (/ Dextrose) 508 mls @ 0 mls/hr IV .Q0M [facility]; Protocol Last Admin: 07/21/21 20:42 Dose: 8 mcg/min, 30.48 mls/hr Documented by: Vancomycin HCl 1,000 mg/ (Sodium Chloride) 250 mls @ 250 mls/hr IV Q36H [facility]; Protocol Last Infusion: 07/21/21 21:42 Dose: Infused Documented by: Piperacillin Sod/Tazobactam (Sod 3.375 gm/ Sodium Chloride) 50 mls @ 12.5 mls/hr IV Q12H [facility]; Protocol Last Admin: 07/22/21 09:17 Dose: 12.5 mls/hr Documented by: Levothyroxine Sodium (Levothyroxine 50 Mcg Tablet) 50 mcg PO DAILY [facility] Last Admin: 07/22/21 09:16 Dose: 50 mcg Documented by: Metoclopramide HCl (Metoclopramide 5 Mg/Ml Sdv 2 Ml) 5 mg IVP Q6H PRN PRN Reason: NAUSEA AND VOMITING Last Admin: 07/17/21 12:24 Dose: 5 mg Documented by: Midodrine (Midodrine 5 Mg Tablet) 20 mg PO Q8H [facility] Morphine Sulfate (Morphine 4 Mg/Ml Sdv 1 Ml) 1 mg IVP Q4H PRN PRN Reason: SEVERE PAIN Last Admin: 07/21/21 21:48 Dose: 1 mg Documented by: Naloxone HCl (Naloxone 0.4 Mg/Ml Sdv) 0.1 mg IVP Q2M PRN PRN Reason: OPIATERV Non-Formulary Medication (Cyanocobalamin (Vitamin B-12)) 25 mcg PO DAILY [facility] Ondansetron HCl (Ondansetron 2 Mg/Ml Sdv 2 Ml) 4 mg IVP Q8H PRN PRN Reason: vomiting, or N/V if npo Last Admin: 07/18/21 17:43 Dose: 4 mg Documented by: Pantoprazole Sodium (Pantoprazole Dr 40 Mg Tablet) 40 mg PO DAILY [facility] Last Admin: 07/22/21 09:16 Dose: 40 mg Documented by: Vitamin D (Cholecalciferol (Vitamin D3) 1,000 Unit Tablet) 2,000 unit PO DAILY [facility] Last Admin: 07/22/21 09:14 Dose: 2,000 unit Documented by: Zinc Gluconate (Zinc Gluconate 50 Mg Tablet) 50 mg PO DAILY [facility] Last Admin: 07/22/21 09:14 Dose: 50 mg Documented by: Vitals/I&O/Wt Last Vital Signs Temp 98.2 F 07/22/21 04:00 Pulse 141 H 07/22/21 09:51 Resp 15 07/22/21 09:00 BP 95/75 07/22/21 09:00 Pulse Ox 96 07/22/21 09:00 07/21/21 07/22/21 07/22/21 22:59 06:59 14:59 Intake Total 483.482 / 948.000 100 / 1048.000 120 / 120 Output Total 200 / 200 240 / 440 Balance 283.482 / 748.000 -140 / 608.000 120 / 120 Weight last 48 hrs Weight 76.4 kg Physical Exam Narrative: EXAM NARRATIVE: in bed sitting up, comfortable Levo@ 6 hypotensive, tachycardic heent- nc/at, eomi neck- bandage on rt side lungs crackes, dull bases heart- irreg irreg, tachycardic abd soft nt nd ext b/l edema neuro- a,a, o Urinary Catheter Management^: Murry: Cath Placed During This Visit: yes Reason for Continuing Indwelling Catheter: Accurate Measurement of Urinary Output in Critically Ill Patients Urinary Catheter Date of Insertion: 07/19/21 Urinary Catheter Time of Insertion: 11:30 Data : 07/22/21 04:25 01/17/22 04:25 Micro: Microbiology 07/20/21 11:22 Blood Culture - Preliminary Blood NEGATIVE TO DATE 07/20/21 11:15 Blood Culture - Preliminary Blood NEGATIVE TO DATE A&P Additional A&P Information 86 yr old man 1. COVID-19- wbc improving 2. KARLA - from [facility]/ [facility]/ CRS/ covid-19- pt does not want any further dialysis -agree w/ diuresis once pts HR and BP improved- consider lasix drip 3. a fib w/ RVR-per cardiology 4. Acute on chronic systolic CHF and pericardial effusion echo- LV ejection fraction around 20%. Wall motion normalities as mentioned above. Mildly dilated LV cavity Normal RV size with a slightly diminished ejection fraction Mild biatrial enlargement. Small to moderate pericardial effusion Compared to study from 07/11/2021, pericardial effusion remains the same or slightly worse. 5. mild anemia- limit FRANK w/ COVID 6. acid/ base status- resp alaklosis and met acidosis of KARLA 7. hyponatremia- from KARLA and pleural effusions 8. LFT's improving 9. ck 1544- can monitor w/ lasix -unfortunately pt has significant systolic chf, pleural and pericardial effusions, a fib w/ rVR, KARLA, covid-19 pna, hypotensive on pressors.- pt does not want further interventions or dialysis. agree w/ diuresis. if pt changes his mind and wants further renal intervention, then please call us -comfort care/ hospice eval is appropriate given significant medical issues discussed w/ Dr. Mala Snell seen and examined w/ RN- telehealth visit time spent 30 min Attestations Medical Necessity Statement*: shock, chf, covid-19, karla, a fib w/ RVR Time Spent in Patient Care: 16 - 35 minutes (>than 50% of time spent in counselling and/or direct pt care on unit). Procedures Arterial Line Size (Gauge): 20 Coding Level of Care Code Acute Developmental Writing Instructor for Isaias Nance
[2021-07-22] MEDS: FUROsemide 10 mg/mL SDV 4mL 40 MG IVP (12:27)
[2021-07-22] MEDS: dilTIAZem 30 mg Tablet PO ×2 (12:28→18:42)
--- NOTE | 2021-07-22 15:40 | P.PN_ITS ---
Subjective Subjective: Interval history: Overnight patient had decreased oral intake, continued to be deconditioned, refused to take medications at times, was quite withdrawn, according to nursing staff he voiced that he wanted to stop medical interventions, he wanted to Early in the morning, patient removed his dialysis catheter, he was agitated at the time he was confused, afterwards orders bleeding which was stopped, currently no bleeding around his dialysis catheter site Currently he is awake alert to person, to place, to time, he does follow commands, is quite weak, deconditioned, has had poor appetite, has not eaten for 24 hours, has refused medications, I discussed with patient his goals of care -I discussed his acute renal failure, and his requirement of dialysis, the sign ificant morbidity mortality associated with acute renal failure, electrolyte abnormalities, fluid overload, and that if he wants to continue medical interventions we would require to put in a new dialysis catheter -I discussed that shock liver, which continues to be improving, -However he does require blood pressure support, is on Levophed -Continues to have intermittent episodes of A. fib, which requires rate controlling or rhythm controlling medications -Discussed his heart failure 20%, pericardial effusion, stenting CAD -Discussed his deconditioning, poor appetite -We discussed with patient his 2 options to pursue continue medical interventions including dialysis catheter placement, dialysis, and further medical intervention versus hospice -I discussed risk and benefits of all options, he voices any, all questions answered he wants to proceed with hospice he tells me he just wants to go home, he wants us to stop all this -I discussed hospice, in detail, he is agreeable to meet with hospice team in go home on hospice -I discussed his CODE STATUS, he tells me that he only wants 2 rounds of CPR, and after that he just wants to be left go, -I discussed that on hospice most individuals are DNR/DNI, he tells me he wants to think on this -Declines for now intubation -Does not want to have aggressive interventions -I also spoke to patient's sister about patient's goals of care, she is agreeable, she is says that they are willing to take him home on hospice, we will need to help with with hospital bed Vitals/I&O/Wt Last Vital Signs Temp 98.2 F 07/22/21 04:00 Pulse 126 H 07/22/21 14:30 Resp 19 H 07/22/21 14:30 BP 113/60 07/22/21 14:30 Pulse Ox 95 07/22/21 14:30 07/22/21 07/22/21 07/22/21 06:59 14:59 22:59 Intake Total 100 / 1048.000 230 / 230 103 / 333 Output Total 240 / 440 1441 / 1441 Balance -140 / 608.000 -1211 / -1211 103 / -1108 Weight last 48 hrs Weight 76.4 kg Physical Exam Const: GENERAL APPEARANCE: ill appearing ORIENTATION/CONSCIOUSNESS: Yes awake, Yes oriented to person, Yes oriented to place and Yes oriented to time Resp: COMMON NORMALS: normal respiratory effort, No retractions and No use of accessory muscles AUSCULTATION: crackles Cardio: COMMON NORMALS: regular rate, regular rhythm, S1 normal heart sound present and S2 normal heart sound present RATE: regular rate RHYTHM: regular rhythm HEART SOUNDS: S1 normal heart sound present and S2 normal heart sound present OTHER: Right dialysis catheter site, clean and dry GI: COMMON NORMALS: Normal to inspection, nondistended, normoactive bowel sounds present, Soft to palpation and non-tender PALPATION: Yes Soft to palpation Extremity: COMMON NORMALS: no pedal edema Neuro: SENSORIUM/ORIENTATION: Yes oriented to person, Yes oriented to place and Yes oriented to time Urinary Catheter Management^: Murry: Cath Placed During This Visit: yes Reason for Continuing Indwelling Catheter: Accurate Measurement of Urinary Output in Critically Ill Patients Urinary Catheter Date of Insertion: 07/19/21 Urinary Catheter Time of Insertion: 11:30 Data : 07/22/21 04:25 07/22/21 04:25 Micro: Microbiology 07/20/21 11:22 Blood Culture - Preliminary Blood NEGATIVE TO DATE 07/20/21 11:15 Blood Culture - Preliminary Blood NEGATIVE TO DATE A&P Assessment and plan (1) Atrial fibrillation with RVR: Shock -Has Covid 19 pneumonia, no UTI, no focal pneumonia, no cholelithiasis -Likely multifactorial from A. fib, NSTEMI, CHF, metabolic acidosis, possible sepsis? Possible COVID-19? -Possible contribution of pericardial effusion -I did discuss with cardiology, reviewed echocardiogram, no significant tampo nade physiology -On Levophed currently, maintain MAP greater than 75 -Increase midodrine to 20 every 6, in an effort to wean off Levophed -Fluids on hold -Monitor blood pressures, monitor heart rate -Continue Plavix -Follow blood cultures, urine cultures, sputum cultures -Started on broad-spectrum antibiotic therapy, vancomycin, Zosyn -Remdesivir on hold given shock liver, shock kidney -Hold Lovenox for DVT prophylaxis given elevated INR -Proceeding with hospice, currently in A. fib, will place On amiodarone drip, and on Cardizem, in effort to get heart rate under control so I can get him dana e, increase midodrine to 20 every 6 hours significant to get off Levophed, hopefully can discharge in the next 24 hours we will have to readdress his CODE STATUS again as he is adamant that he wants to have 2 rounds of CPR Respiratory distress -Secondary to fluid overload, improving this morning, respiratory status has improved on 3 L -Not responding to diuresis given acute renal failure -Declines dialysis Metabolic acidosis and lactic acidosis -IV fluids stop, amp of bicarb, pressor support -Declines dialysis Shock liver -Trend LFTs -Pressor support -Midodrine Elevated INR secondary to shock liver -Status post 1 unit FFP, INR 2.5,, monitor Acute renal failure -Multifactorial from shock, contrast, CHF, Covid 19? -Maintain MAP more than 75, midodrine -Proceeding with dialysis catheter placement, dialysis -Gentle IV hydration stopped -Nephrology consulted COVID-19 pneumonia -Requiring 2 L -Remdesivir on hold given creatinine clearance -Decadron -Rocephin -Azithromycin -Vitamin C, zinc, vitamin D - incentive spirometer flutter valve -Ipratropium, budesonide -Monitor respiratory status closely atrial fibrillation RVR -No hemodynamic compromise, AAOX3 -given metoprolol -did not convert to NSR -given digoxin heart rate better controlled, still slightly hypotensive -Amiodarone 400 mg twice daily -Start Levophed -Therapeutic Lovenox on hold -Cardiac echocardiogram - LV ejection fraction around 20%. Wall motion normalities as mentioned above. Mildly dilated LV cavity Normal RV size with a slightly diminished ejection fraction Mild biatrial enlargement. Small to moderate pericardial effusion Compared to study from 07/11/2021, pericardial effusion remains the same or slightly worse -cardiology consult -full code NSTEMI -LBBB -S/p ostial LAD and mid LAD stent 1 week -seriral troponin, serial ekg -no chest pain -aspirin, plavix, therapeutic Lovenox, statin CHF -Last EF 25% -Currently in acute renal failure -following BNP -fluid restriction -Consider CRRT Moderate pericardial effusion -decreasing in size on discharge - LV ejection fraction around 20%. Wall motion normalities as mentioned above. Mildly dilated LV cavity Normal RV size with a slightly diminished ejection fraction Mild biatrial enlargement. Small to moderate pericardial effusion Compared to study from 07/11/2021, pericardial effusion remains the same or slightly worse -Colchicine on hold, monitor creatinine Pericarditis -Has a pericardial friction rub on exam -Does have chest pain complaints on admission, none currently -Colchicine on hold, on Decadron -Possibly related to COVID-19? Protein calorie malnutrition, deconditioning, continue to monitor encourage oral intake, Ensure - Status: Acute (2) Dyspnea: Status: Acute (3) Generalized weakness: Status: Acute (4) Pericardial effusion: Status: Acute (5) Chest pain: Status: Acute (6) Hyperlipidemia: Status: Acute Qualifiers: Hyperlipidemia type: pure hypercholesterolemia Qualified Code(s): E78.00 - Pure hypercholesterolemia, unspecified (7) CAD (coronary artery disease): Status: Acute Qualifiers: Coronary Disease-Associated Artery/Lesion type: [place] artery [place] vs. transplanted heart: [place] heart Associated angina: without angina Quali fied Code(s): I25.10 - Atherosclerotic heart disease of [place] coronary artery without angina pectoris (8) Shock: Status: Acute (9) Pneumonia due to COVID-19 virus: Status: Acute (10) Pericarditis: Status: Acute Qualifiers: Pericarditis type: unspecified type Chronicity: unspecified Qualified Code(s): I31.9 - Disease of pericardium, unspecified (11) Atherosclerotic heart disease of [place] coronary artery with other forms of angina pectoris: Status: Acute (12) Acute on chronic systolic heart failure: Status: Acute (13) Acute renal failure: Status: Acute (14) Metabolic acidosis: Status: Acute (15) Shock liver: Status: Acute Attestations Medical Necessity Statement*: Patient requires hospitalization for atrial fibrillation, metabolic acidosis respiratory failure, shock liver, acute renal failure, COVID-19, moderate pericardial effusion, critical care time spent over 35 minutes Procedures Arterial Line Size (Gauge): 20 Coding Level of Care Code Acute Hand Ornament Maker for Chg Fwd Diagnoses Atrial fibrillation with RVR I48.91 Dyspnea R06.00 Generalized weakness R53.1 Pericardial effusion I31.3 Chest pain R07.9 Hyperlipidemia E78.00 Hyperlipidemia type: pure hypercholesterolemia CAD (coronary artery disease) I25.10 Coronary Disease-Associated Artery/Lesion type: [place] artery [place] vs. transplanted heart: [place] heart Associated angina: without angina Shock R57.9 Pneumonia due to COVID-19 virus U07.1; J12.82 Pericarditis I31.9 Pericarditis type: unspecified type Chronicity: unspecified Atherosclerotic heart disease of [place] coronary artery with other forms of angina pectoris I25.118 Acute on chronic systolic heart failure I50.23 Acute renal failure N17.9 Metabolic acidosis E87.2 Shock liver K72.00
[2021-07-22] MEDS: norepinephrine 8 MG in dextrose 5 % 500 ML 30.48 MG IV (16:12)
[2021-07-22] MEDS: midodrine 5 mg TABLET 20 MG PO (18:42)
[2021-07-23] VITALS (22 sets, daily range): BP systolic 72–116; BP diastolic 52–73; PULSE 73–109; RESP 12–24; TEMP 36.7; O2SAT 89–98
[2021-07-23] MEDS: midodrine 5 mg TABLET 20 MG PO ×2 (00:22→08:11)
--- NOTE | 2021-07-23 02:49 | PC.NURSE ---
Patient wide awake in bed so far thus shift. Cant get comfortable even after many repositions and nursing interventions.
[2021-07-23] MEDS: morphine 4 mg/mL SDV 1 mL 1 MG IVP (03:12)
[2021-07-23 05:07] LABS: Basophils % 0.2 %; Hematocrit 28.4 % (42.0-52.0); Hemoglobin 9.2 g/dL (11.7-16.6); Lymphocytes # 0.2 10^3/uL (0.8-4.8); Lymphocytes % 1.5 %; Mean Corpuscular HGB Conc 32.4 g/dL (30.0-36.0); Mean Corpuscular Hemoglobin 31.1 pg (28.0-34.0); Mean Corpuscular Volume 95.9 fl (80-94); Mean Platelet Volume 11.9 fL (7.4-10.4); Monocytes % 6.2 %; Neutrophils # 14.76 10^3/uL (1.8-7.7); Neutrophils % 91.5 %; Nucleated Red Blood Cells # 0.2 /100WBC; Nucleated Red Blood Cells % 1.4 %; Platelet Count 112 10^3/cmm (130-400); Red Blood Count 2.96 10^6/uL (4.1-5.3); Red Cell Distribution Width 15.2 % (12.1-15.1); White Blood Count 16.1 10^3/uL (4.0-10.0)
[2021-07-23 05:19] LABS: INR 2.21 (0.8-1.2)
[2021-07-23 05:22] LABS: Lactate (Lactic Acid level) 2.6 mmol/L (0.5-2.2)
[2021-07-23 05:34] LABS: Alanine Aminotransferase 296 U/L (0-41); Albumin Level 2.7 g/dL (3.5-5.2); Alkaline Phosphatase 133 IU/L (40-130); C Reactive Protein 118.8 mg/L (0.0-4.9); Carbon Dioxide 19 mmol/L (22-29); Chloride 87 mmol/L (98-107); Globulin 1.9 g/dL (1.3-4.6); Glucose 174 mg/dL (65-115); Magnesium 2.9 mg/dL (1.7-2.3); Osmolality Calculated 300 mOsm/kg (285-295); Phosphorus 6.6 mg/dL (2.5-4.5); Sodium 128 mmol/L (136-145); Total Protein 4.6 g/dL (6.6-8.7)
[2021-07-23 05:42] LABS: NT Pro B Type Natriuretic Pept 14351 pg/mL (0-450); Procalcitonin 6.03 ng/mL (0-0.5)
[2021-07-23 05:54] LABS: Anion Gap 26.9 (5-19); Aspartate Amino Transferase 275 U/L (0-40); Potassium 4.9 mmol/L (3.5-5.1)
[2021-07-23 06:10] LABS: Creatine Phosphokinase 953 U/L (39-308)
[2021-07-23 06:11] LABS: Blood Urea Nitrogen 97 mg/dL (8-23)
[2021-07-23] MEDS: dexamethasone 10 mg/mL INJ 6 MG IVP (08:11)
--- NOTE | 2021-07-23 09:27 | PC.SOCIAL ---
IMM Update pg 2 of IMM updated and reviewed w/ patient. Copy provided.
[2021-07-23 09:30] LABS: Vancomycin Trough 11.5 ug/mL (10-15)
--- NOTE | 2021-07-23 12:06 | P.DS_ITS ---
Discharge Providers Date of Admission: 07/16/21 23:04 Date of Discharge: July 23, 2021 Attending Provider at Admission: Osbaldo Snell MD Attending Provider at Discharge: Osbaldo Snell MD Primary Care Provider: Roxy Kaye APN Diagnoses at Discharge Discharge Diagnosis (1) Atrial fibrillation with RVR: Status: Acute (2) Dyspnea: Status: Acute (3) Generalized weakness: Status: Acute (4) Pericardial effusion: Status: Acute (5) Chest pain: Status: Acute (6) Hyperlipidemia: Status: Acute Qualifiers: Hyperlipidemia type: pure hypercholesterolemia Qualified Code(s): E78.00 - Pure hypercholesterolemia, unspecified (7) CAD (coronary artery disease): Status: Acute Qualifiers: Coronary Disease-Associated Artery/Lesion type: [place] artery [place] vs. transplanted heart: [place] heart Associated angina: without angina Qualified Code(s): I25.10 - Atherosclerotic heart disease of [place] coronary artery without angina pectoris (8) Shock: Status: Acute (9) Pneumonia due to COVID-19 virus: Status: Acute (10) Pericarditis: Status: Acute Qualifiers: Pericarditis type: unspecified type Chronicity: unspecified Qualified Code(s): I31.9 - Disease of pericardium, unspecified (11) Atherosclerotic heart disease of [place] coronary artery with other forms of angina pectoris: Status: Acute (12) Acute on chronic systolic heart failure: Status: Acute (13) Acute renal failure: Status: Acute (14) Metabolic acidosis: Status: Acute (15) Shock liver: Status: Acute Reason for Visit Reason for Visit: Wont eat or sleep/blood in stool Hospital Course Hospital Course Jerzy Quezada is a 86 year old male with a past medical history of hypothyroidism, CAD, hypertension, pericardial effusion, recently discharged from [facility] for chest pain and NSTEMI requiring LAD stenting x2, was also found to have a moderate pericardial effusion which was found to decrease in size on repeat imaging, he had a complicated course requiring pressors, clinically improved, continue to have GI discomfort and weakness, discharged home. Patient tells me that when he got home he continued to feel weak fatigue, poor appetite, a start develop shortness of breath, with orthopnea paroxysmal nocturnal dyspnea, normal extremity edema, but was feeling short of breath with even minimal exertion. Patient was admitted to [facility] for acute respiratory distress, atrial fibrillation with RVR, NSTEMI, metabolic acidosis, acute renal failure, COVID-19 pneumonia was admitted to the ICU, received pressor support, rate and rhythm controlling medications and clinically monitored. Due to persistent hypotensive episodes and he developed shock liver, acute renal failure. Requiring dialysis catheter placement and inpatient dialysis. Continued to receive pressor support, titration of his atrial fibrillation, had 2 sessions of dialysis. Subsequently patient removed his dialysis, after discussing his goals of care he did not want to continue dialysis, did not want to have dialysis catheter placement. Patient want to proceed to to go home on hospice. Patient had persistent acute renal failure, shock liver, hyperbilirubinemia, lactic acidosis, metabolic acidosis, persistent A. fib, persistent shock, also found to have COVID-19 pneumonia. After discussion of his goals of care, patient wanted to proceed with hospice. The plan was to discharge home on home hospice. The morning of 07/23/2021, patient developed significant hypotensive episodes, I discussed his goals of care, he wants to still go home on hospice. I discussed his CODE STATUS, he wants to be DNR/DNI. He does not want to have a trial of CPR. I advised him that he needs to sign a out of hospital DNR, which he agrees to, advised him that he has high risk of passing away during transport. I advised for now we will make him home comfort care here in the hospital, as ther e is a risk of him passing a away here in the hospital as he waits to go home on hospice, given his persistent hypotensive episodes and his A. fib, his lactic acidosis, metabolic acidosis, mild respiratory failure. Patient is again adamant about going home, I advised that I will try my best to honor his last wishes. For now we will make him comfort care here in the hospital, his family members at bedside, once hospice is fully set up and arranged, will attempt to get him home on hospice today. Physical Exam Const: GENERAL APPEARANCE: ill appearing and frail appearing ORIENTATION/CONSCIOUSNESS: Yes awake, Yes oriented to person, Yes oriented to place and Yes oriented to time Resp: COMMON NORMALS: normal respiratory effort, No retractions and No use of accessory muscles EFFORT & INSPECTION: Yes tachypneic AUSCULTATION: crackles Cardio: COMMON NORMALS: S1 normal heart sound present and S2 normal heart sound present RATE: tachycardic RHYTHM: abnormal rhythm irregularly irregular HEART SOUNDS: S1 normal heart sound present and S2 normal heart sound present GI: COMMON NORMALS: Normal to inspection, nondistended, normoactive bowel sounds present, Soft to palpation and non-tender PALPATION: Yes Soft to palpation Extremity: COMMON NORMALS: no pedal edema Neuro: SENSORIUM/ORIENTATION: Yes oriented to person, Yes oriented to place and Yes oriented to time Urinary Catheter Management^: Murry: Cath Placed During This Visit: yes Reason for Continuing Indwelling Catheter: Accurate Measurement of Urinary Output in Critically Ill Patients Urinary Catheter Date of Insertion: 07/19/21 Urinary Catheter Time of Insertion: 11:30 Discharge Data Data Completed and Pending: Completed Studies During Hospitalization Category Date Time Status CT angio chest PE protcl 30686 Urge nt Cat Scan 07/16/21 18:20 Completed XR chest 1V adair ble 40232 Routine Exams 07/19/21 07:00 Completed XR chest 1V adair ble 06360 Routine Exams 07/20/21 07:00 Completed XR chest 1V adair ble [id number] Routine Exams 07/21/21 07:00 Completed XR chest 1V adair ble 06703 Stat Exams 07/22/21 02:50 Completed XR chest 1V adair ble 06243 Urgent Exams 07/16/21 15:57 [place] [address] Routin e Ultrasound 07/17/21 04:56 Completed CV. echo lmt w co malvin 81329/25 Routi ne Ultrasound 07/17/21 20:04 Completed US gall bladder 7 6705 Stat Ultrasound 07/17/21 08:40 Completed US renal BI* [id number] 0 Routine Ultrasound 07/18/21 10:33 Completed Pending at discharge Category Date Time Status Blood Culture Sta t Lab 07/20/21 11:22 Results Sputum Culture an d Gram Stain Stat Lab 07/20/21 08:20 Uncollected Labs from last 24 hours 07/23/21 07/23/21 07/23/21 08:55 04:53 04:53 WBC RBC Hgb Hct MCV MCH MCHC RDW Plt Count MPV Neut % (Auto) Lymph % (Auto) Graham % (Auto) Eos % (Auto) Baso % (Auto) Neut # (Auto) Lymph # (Auto) Graham # (Auto) Eos # (Auto) Baso # (Auto) Nucleated RBC % (a uto) Nucleated RBCs # PT 25.00 H INR 2.21 H Sodium Potassium Chloride Carbon Dioxide Anion Gap BUN Creatinine GFR Calculation Glucose Calculated Osmolal ity Lactate 2.6 H Calcium Phosphorus Magnesium Total Bilirubin AST ALT Alkaline Phosphata se Creatine Kinase C-Reactive Protein NT-Pro-B Natriuret Pep Total Protein Albumin Globulin Procalcitonin Vancomycin Trough 11.5 07/23/21 07/23/21 07/23/21 04:53 04:53 04:53 WBC 16.1 H RBC 2.96 L Hgb 9.2 L Hct 28.4 L MCV 95.9 H MCH 31.1 MCHC 32.4 RDW 15.2 H Plt Count 112 L MPV 11.9 H Neut % (Auto) 91.5 Lymph % (Auto) 1.5 Graham % (Auto) 6.2 Eos % (Auto) 0.0 Baso % (Auto) 0.2 Neut # (Auto) 14.76 H Lymph # (Auto) 0.2 L Graham # (Auto) 1.0 H Eos # (Auto) 0.0 Baso # (Auto) 0.0 Nucleated RBC % (a uto) 1.4 Nucleated RBCs # 0.2 PT INR Sodium 128 L Potassium 4.9 Chloride 87 L Carbon Dioxide 19 L Anion Gap 26.9 H BUN 97 H* Creatinine 3.6 H GFR Calculation Not Reportable Glucose 174 H Calculated Osmolal ity 300 H Lactate Calcium 6.0 L Phosphorus 6.6 H Magnesium 2.9 H Total Bilirubin 6.0 H AST 275 H ALT 296 H Alkaline Phosphata se 133 H Creatine Kinase 953 H* C-Reactive Protein 118.8 H NT-Pro-B Natriuret Pep 09503 H Total Protein 4.6 L Albumin 2.7 L Globulin 1.9 Procalcitonin 6.03 H Vancomycin Trough Vitals: Last Vital Signs Temp 98.1 F 07/23/21 08:00 Pulse 76 07/23/21 09:18 Resp 16 07/23/21 09:18 BP 106/57 07/23/21 08:00 Pulse Ox 96 07/23/21 09:18 Discharge Plan Discharge Patient Disposition: Hospice - Home Condition: Serious Prescriptions: Discontinued levothyroxine 50 mcg capsule 50 mcg PO DAILY RF: 0 nitroglycerin [Nitrostat] 0.4 mg tablet, sublingual 0.4 mg sublingual Q5M PRN (Reason: chest pain) Qty: 25 RF: 3 aspirin [Adult Aspirin Regimen] 81 mg tablet,delayed release (DR/EC) 81 mg PO DAILY Qty: 90 RF: 3 Hold Instructions: Doctor's Order Lasix 20 mg tablet 20 mg PO DAILY Qty: 90 RF: 3 metoprolol succinate 25 mg tablet extended release 24 hr 12.5 mg PO DAILY Qty: 45 RF: 3 rosuvastatin 10 mg tablet 10 mg PO DAILY Qty: 90 RF: 3 pantoprazole 40 mg tablet,delayed release (DR/EC) 40 mg PO DAILY Qty: 30 RF: 3 clopidogrel 75 mg Tablet 75 mg PO DAILY Qty: 90 RF: 4 lisinopril 2.5 mg tablet 2.5 mg PO DAILY Qty: 30 RF: 3 isosorbide mononitrate 30 mg Tablet Extended Release 24 Hr 15 mg PO DAILY RF: 0 Vitamin B-12 25 mcg Tablet 25 mcg PO DAILY RF: 0 Fish Oil 1,200 (144-216) mg Capsule 2 cap PO BID RF: 0 Discharge Orders: Discharge Order (Routine); Ordered 07/23/21 Ordered By: Osbaldo Snell Referrals: [facility] [Other] Kaye,GEREMIAS Ramsey [Primary Care Provider] - Discharge Diet: Regular and Cardiac Discharge Activity: Resume usual activity Discharge Attestations Time Spent in Discharge Care*: critical care time Critical Care Time (min): 35 Quality Metrics Clinical Quality Measures During this hospital stay, did patient experience: None Coding Level of Care Code Acute Chg FW DC note Diagnoses Atrial fibrillation with RVR I48.91 Dyspnea R06.00 Generalized weakness R53.1 Pericardial effusion I31.3 Chest pain R07.9 Hyperlipidemia E78.00 Hyperlipidemia type: pure hypercholesterolemia CAD (coronary artery disease) I25.10 Coronary Disease-Associated Artery/Lesion type: [place] artery [place] vs. transplanted heart: [place] heart Associated angina: without angina Shock R57.9 Pneumonia due to COVID-19 virus U07.1; J12.82 Pericarditis I31.9 Pericarditis type: unspecified type Chronicity: unspecified Atherosclerotic heart disease of [place] coronary artery with other forms of angina pectoris I25.118 Acute on chronic systolic heart failure I50.23 Acute renal failure N17.9 Metabolic acidosis E87.2 Shock liver K72.00
--- NOTE | 2021-07-23 15:27 | PC.NURSE ---
0830 Patient anxiously asking to go home as fast as possible before he dies Notified Dr. Snell of his request. Plans to go home on Hospice has been arranged. 1000 Family arriving and at bedside. Comfort care measures only now. 1200 Patient again asking to go home now. Patient signed No code order for ambulance with family aware of his wishes. 1330 D\c'd IV's x3, applied pressure dressing to right forarm and dressing to upper right arm IV site and left forarm site. Removed gibson. No c/o's. Sent Patient home via ambulance at 1330 with family to follow.
== END 2021-07-23 13:30 | disposition hospice, home (50) | DRG 177 ==
LOC: ER 18:19 → ICU 20:59
PROVIDERS: Internal Medicine Nephrology; Nurse Practitioner Family; Student in an Organized Health Care Education/Training Program; Surgery; Admitting Provider Family Medicine; Emergency Provider Emergency Medicine; PCP Nurse Practitioner Family; Visit Provider Family Medicine
PROC: 02H633Z Insertion of Infusion Device into Right Atrium, Percutaneous Approach (ICD-10-PCS; principal; 2021-07-19 12:00)
DX: U07.1 COVID-19 (principal); J12.82 Pneumonia due to coronavirus disease 2019; J80 Acute respiratory distress syndrome; K72.00 Acute and subacute hepatic failure without coma; I50.23 Acute on chronic systolic (congestive) heart failure; I21.4 Non-ST elevation (NSTEMI) myocardial infarction; I13.0 Hypertensive heart and chronic kidney disease with heart failure and stage 1 through stage 4 chronic kidney disease, or unspecified chronic kidney disease; I48.19 Other persistent atrial fibrillation; I31.3 Pericardial effusion (noninflammatory); N17.9 Acute kidney failure, unspecified; I31.9 Disease of pericardium, unspecified; N18.9 Chronic kidney disease, unspecified; E11.22 Type 2 diabetes mellitus with diabetic chronic kidney disease; I25.10 Atherosclerotic heart disease of native coronary artery without angina pectoris; Z95.5 Presence of coronary angioplasty implant and graft; I25.2 Old myocardial infarction; E78.00 Pure hypercholesterolemia, unspecified; E03.9 Hypothyroidism, unspecified; I95.9 Hypotension, unspecified; Z51.5 Encounter for palliative care; Z66 Do not resuscitate; D64.9 Anemia, unspecified; E87.5 Hyperkalemia
CPT/HCPCS: 36415; 36416; 36430; 36600; 36620; 51702; 71045; 71275; 76705; 76770; 76942; 77001; 80048; 80051; 80053; 80202; 81001; 82330; 82550; 82570; 82728; 82803; 82805; 82810; 82962; 83516; 83605; 83690; 83735; 83880; 84100; 84145; 84300; 84439; 84443; 84484; 85025; 85378; 85610; 85999; 86140; 86141; 86900; 86927; 87040; 87086; 87340; 87493; 87635; 90935; 92523; 92610; 93005; 93308; 93325; 93971; 94640; 94660; 94664; 96361; 96372; 96374; 96375; 97162; 97165; 97530; 97535; 99285; C1750; J0282; J0456; J0690; J0696; J1100; J1160; J1644; J1650; J1815; J1940; J2060; J2270; J2405; J2543; J2704; J2765; J3010; J3370; J3490; J3535; J7040; J7050; J7060; J7626; P9017; Q3014; Q9967